=== PATIENT | female | born 1970 | race Caucasian/White ===

== ENCOUNTER → 2021-09-04 | Outpatient (CLI) | payer OTHER, SELFPAY ==
[2021-09-04 12:35] LABS: Absolute Lymphocyte Count 2.55 X10^3/uL (0.83-4.51); Absolute Neutrophil Count 7.7 X10^3/uL (2.0-7.7); Basophil# 0.05 X10^3/uL; Basophil% 0.5 % (0-1); Eosinophil# 0.13 X10^3/uL; Eosinophils% 1.2 % (0-5); Hematocrit 43.8 % (37-47); Hemoglobin 14.2 g/dL (12.0-15.0); Lymphocyte # 2.55 X10^3/ul (0.83-4.51); Mean Corp Hgb Conc 32.4 g/dL (32-36); Mean Corpuscular Hgb 29.9 pg (27.0-32.0); Mean Corpuscular Volume 92.2 fL (81-99); Monocyte# 0.63 X10^3/uL; Monocyte% 5.7 % (0-10); NRBC Flagged by Analyzer 0 % (0-5); Neutrophil # 7.72 X10^3/uL (2.7-7.7); Neutrophil % 69.4 % (47-70); Platelet Count 290 K/mm3 (150-450); RBC Distribution Width CV 12.2 % (11.6-14.6); RBC Distribution Width SD 41.7 fl (35.1-43.9); Red Blood Count 4.75 M/mm3 (4.2-5.4); White Blood Count 11.1 K/mm3 (4.4-11.0)
[2021-09-04 12:42] LABS: ALB/GLOB Ratio 0.9 RATIO (0.9-2.4); AST(SGOT) 16 U/L (15-37); Alanine Aminotransfer ALT/SGPT 26 U/L (13-56); Albumin, Serum 3.7 g/dL (3.2-5.0); Alkaline Phosphatase 71 U/L (45-117); Anion Gap 6 (5-15); BUN 10 mg/dL (7-18); BUN/Creat Ratio 9.1 RATIO (10-20); Chloride 104 mmol/L (98-107); Cholesterol 238 mg/dL (200); EST Glomerular Filtration Rate 56 mL/min (>60); Est Glom Filt Rate - Afr Amer 67 mL/min (>60); Glucose 104 mg/dL (74-106); High Density Lipoprotein 30 mg/dL; Potassium 4.2 mmol/L (3.5-5.1); Protein, Total 7.7 g/dL (6.4-8.2); Sodium Level 136 mmol/L (136-145); T4 Free Direct 0.85 ng/dL (0.76-1.46); Thyroid Stim Hormone (TSH) 4.23 uIU/mL (0.358-3.74); Triglycerides 169 mg/dL; Very Low Density Lipoprotein 34 mg/dL (5-40)
== END | disposition home or self-care (01) ==
LOC: BIMLAB 08:09
PROVIDERS: PCP Internal Medicine; Referring Provider Internal Medicine; Visit Provider Internal Medicine
DX: I10 Essential (primary) hypertension (principal); E78.5 Hyperlipidemia, unspecified
CPT/HCPCS: 36415; 80053; 80061; 84439; 84443; 85025

== ENCOUNTER → 2021-11-13 | Outpatient (CLI) | payer OTHER, SELFPAY | END | disposition home or self-care (01) | LOC: CVS 14:48 | PROVIDERS: PCP Internal Medicine; Referring Provider Internal Medicine; Visit Provider Internal Medicine | DX: Z00.00 Encounter for general adult medical examination without abnormal findings (principal) ==

== ENCOUNTER → 2021-12-22 | Outpatient (CLI) | payer OTHER, SELFPAY ==
[2021-12-22 12:38] LABS: ALB/GLOB Ratio 0.9 RATIO (0.9-2.4); AST(SGOT) 13 U/L (15-37); Alanine Aminotransfer ALT/SGPT 26 U/L (13-56); Albumin, Serum 3.5 g/dL (3.2-5.0); Alkaline Phosphatase 67 U/L (45-117); Anion Gap 8 (5-15); BUN 11 mg/dL (7-18); BUN/Creat Ratio 11.7 RATIO (10-20); Calcium,Total 8.7 mg/dL (8.5-10.1); Chloride 106 mmol/L (98-107); Creatinine, Serum 0.94 mg/dL (0.55-1.02); EST Glomerular Filtration Rate 66 mL/min (>60); Est Glom Filt Rate - Afr Amer 80 mL/min (>60); Globulin 3.7 g/dL (2.2-4.2); Glucose 111 mg/dL (74-106); Protein, Total 7.2 g/dL (6.4-8.2); Sodium Level 139 mmol/L (136-145)
== END | disposition home or self-care (01) ==
PROVIDERS: PCP Internal Medicine; Visit Provider Internal Medicine
DX: E78.5 Hyperlipidemia, unspecified (principal); I10 Essential (primary) hypertension
CPT/HCPCS: 36415; 80053

== ENCOUNTER 2022-06-07 15:05 | Outpatient (RCR) | payer OTHER, SELFPAY ==
[2022-06-07 16:36] LABS: ALB/GLOB Ratio 0.9 RATIO (0.9-2.4); AST(SGOT) 32 U/L (15-37); Alanine Aminotransfer ALT/SGPT 39 U/L (13-56); Albumin, Serum 3.4 g/dL (3.2-5.0); Alkaline Phosphatase 60 U/L (45-117); Anion Gap 5 (5-15); BUN 14 mg/dL (7-18); BUN/Creat Ratio 13.3 RATIO (10-20); Calcium,Total 8.9 mg/dL (8.5-10.1); Chloride 103 mmol/L (98-107); Creatinine, Serum 1.05 mg/dL (0.55-1.02); EST Glomerular Filtration Rate 58 mL/min (>60); Est Glom Filt Rate - Afr Amer 71 mL/min (>60); Globulin 3.9 g/dL (2.2-4.2); Glucose 119 mg/dL (74-106); Potassium 3.8 mmol/L (3.5-5.1); Protein, Total 7.3 g/dL (6.4-8.2); Sodium Level 138 mmol/L (136-145)
[2022-06-07 16:39] LABS: Absolute Lymphocyte Count 2.16 X10^3/uL (0.83-4.51); Absolute Neutrophil Count 6.6 X10^3/uL (2.0-7.7); Basophil# 0.05 X10^3/uL; Basophil% 0.5 % (0-1); Eosinophil# 0.15 X10^3/uL; Eosinophils% 1.5 % (0-5); Hematocrit 32.4 % (37-47); Hemoglobin 10.3 g/dL (12.0-15.0); Lymphocyte # 2.16 X10^3/ul (0.83-4.51); Lymphocyte % 22.2 % (19-41); Mean Corp Hgb Conc 31.8 g/dL (32-36); Mean Corpuscular Hgb 29.6 pg (27.0-32.0); Mean Corpuscular Volume 93.1 fL (81-99); Mean Platelet Vol. 10.3 fl (6.2-12.0); Monocyte# 0.71 X10^3/uL; Monocyte% 7.3 % (0-10); NRBC Flagged by Analyzer 0 % (0-5); Neutrophil # 6.64 X10^3/uL (2.7-7.7); Neutrophil % 68.1 % (47-70); Platelet Count 221 K/mm3 (150-450); RBC Distribution Width CV 12.3 % (11.6-14.6); RBC Distribution Width SD 41.8 fl (35.1-43.9); Red Blood Count 3.48 M/mm3 (4.2-5.4); White Blood Count 9.8 K/mm3 (4.4-11.0)
[2022-06-07 16:50] LABS: International Normalized Ratio 1.6
== END 2022-06-22 23:59 ==
LOC: BIMLAB 15:05
PROVIDERS: PCP Internal Medicine; Referring Provider Internal Medicine; Visit Provider Internal Medicine
DX: Z95.1 Presence of aortocoronary bypass graft (principal); Z95.2 Presence of prosthetic heart valve; E78.5 Hyperlipidemia, unspecified
CPT/HCPCS: 36415; 80053; 85025; 85610

== ENCOUNTER → 2022-06-21 | Outpatient (CLI) | payer OTHER, SELFPAY ==
[2022-06-21 17:10] LABS: International Normalized Ratio 1.5; Prothrombin Time (Protime)PT. 17.8 SECONDS (11.7-14.9)
== END | disposition home or self-care (01) ==
LOC: BIMLAB 11:36
PROVIDERS: PCP Internal Medicine; Visit Provider Internal Medicine
DX: Z95.1 Presence of aortocoronary bypass graft (principal)
CPT/HCPCS: 36415; 85610

== ENCOUNTER 2022-07-23 11:55 | Outpatient (RCR) | payer OTHER, SELFPAY ==
[2022-06-28 12:50] LABS: International Normalized Ratio 3.3; Prothrombin Time (Protime)PT. 32.9 SECONDS (11.7-14.9)
[2022-07-23 13:10] LABS: International Normalized Ratio 2.4; Prothrombin Time (Protime)PT. 25.7 SECONDS (11.7-14.9)
== END 2022-07-23 23:59 ==
LOC: BIMLAB 11:55
PROVIDERS: PCP Internal Medicine; Referring Provider Internal Medicine; Visit Provider Internal Medicine
DX: Z95.2 Presence of prosthetic heart valve
CPT/HCPCS: 36415; 85610

== ENCOUNTER 2022-08-16 09:58 | Outpatient (RCR) | payer OTHER, SELFPAY ==
[2022-08-16 12:26] LABS: International Normalized Ratio 1.2; Prothrombin Time (Protime)PT. 15.2 SECONDS (11.7-14.9)
== END 2022-08-22 23:59 ==
LOC: BIMLAB 09:58
PROVIDERS: PCP Internal Medicine; Referring Provider Internal Medicine; Visit Provider Internal Medicine
DX: Z95.2 Presence of prosthetic heart valve (principal)
CPT/HCPCS: 36415; 85610

== ENCOUNTER → 2022-09-10 | Outpatient (CLI) | payer OTHER, SELFPAY ==
[2022-09-10 16:33] LABS: Hematocrit 43.5 % (37-47); Mean Corp Hgb Conc 32.2 g/dL (32-36); Mean Corpuscular Hgb 29.7 pg (27.0-32.0); Mean Corpuscular Volume 92.4 fL (81-99); Mean Platelet Vol. 10.3 fl (6.2-12.0); Platelet Count 246 K/mm3 (150-450); RBC Distribution Width SD 43.9 fl (35.1-43.9); Red Blood Count 4.71 M/mm3 (4.2-5.4); White Blood Count 8.8 K/mm3 (4.4-11.0)
[2022-09-10 16:54] LABS: Anion Gap 7 (5-15); BUN 16 mg/dL (7-18); BUN/Creat Ratio 13.7 RATIO (10-20); Calcium,Total 9.7 mg/dL (8.5-10.1); Chloride 105 mmol/L (98-107); Creatinine, Serum 1.17 mg/dL (0.55-1.02); EST Glomerular Filtration Rate 52 mL/min (>60); Est Glom Filt Rate - Afr Amer 62 mL/min (>60); Glucose 119 mg/dL (74-106); Potassium 4.1 mmol/L (3.5-5.1); Sodium Level 140 mmol/L (136-145)
== END | disposition home or self-care (01) ==
LOC: BIMLAB 14:47
PROVIDERS: PCP Internal Medicine; Referring Provider Internal Medicine; Visit Provider Internal Medicine
DX: I10 Essential (primary) hypertension (principal)
CPT/HCPCS: 36415; 80048; 85027

== ENCOUNTER → 2022-10-20 | Outpatient (CLI) | payer OTHER, SELFPAY ==
[2022-10-20 12:59] LABS: Cholesterol 260 mg/dL (200); High Density Lipoprotein 33 mg/dL; Triglycerides 387 mg/dL; Very Low Density Lipoprotein 77 mg/dL (5-40)
== END | disposition home or self-care (01) ==
LOC: BIMLAB 10:15
PROVIDERS: PCP Internal Medicine; Referring Provider Internal Medicine; Visit Provider Internal Medicine
DX: I25.10 Atherosclerotic heart disease of native coronary artery without angina pectoris (principal); E78.5 Hyperlipidemia, unspecified; F17.200 Nicotine dependence, unspecified, uncomplicated; Z95.2 Presence of prosthetic heart valve
CPT/HCPCS: 36415; 80061

== ENCOUNTER → 2023-04-01 | Outpatient (CLI) | payer OTHER, SELFPAY ==
[2023-04-01 13:43] LABS: AST(SGOT) 21 U/L (15-37); Alanine Aminotransfer ALT/SGPT 28 U/L (13-56); Albumin, Serum 3.9 g/dL (3.2-5.0); Alkaline Phosphatase 68 U/L (45-117); Anion Gap 6 (5-15); BUN 11 mg/dL (7-18); BUN/Creat Ratio 10.4 RATIO (10-20); Calcium,Total 8.9 mg/dL (8.5-10.1); Chloride 106 mmol/L (98-107); Cholesterol 269 mg/dL (200); Creatinine, Serum 1.06 mg/dL (0.55-1.02); EST Glomerular Filtration Rate 58 mL/min (>60); Est Glom Filt Rate - Afr Amer 70 mL/min (>60); Globulin 3.9 g/dL (2.2-4.2); Glucose 118 mg/dL (74-106); High Density Lipoprotein 35 mg/dL; Potassium 4.5 mmol/L (3.5-5.1); Protein, Total 7.8 g/dL (6.4-8.2); Sodium Level 138 mmol/L (136-145); Triglycerides 256 mg/dL; Very Low Density Lipoprotein 51 mg/dL (5-40)
== END | disposition home or self-care (01) ==
LOC: BIMLAB 08:06
PROVIDERS: PCP Internal Medicine
DX: E78.5 Hyperlipidemia, unspecified (principal)
CPT/HCPCS: 36415; 80053; 80061

== ENCOUNTER → 2023-05-09 | Outpatient (CLI) | payer OTHER, SELFPAY ==
--- OUTSIDE RECORDS SUMMARY | 2023-05-09 08:46 | XMS RPT_ITS | CCD ---
Author Name Unknown Address [address] [place] [address] Organization [facility] Care Team Providers Care Recording Artist Name Role Phone Adi BLACKWELL, Kavin Calderon Primary Care Provider [phone] MICHAEL SAMUEL Primary Care Physician SAMUEL, FLIGHT COORDINATOR-C MICHAEL Primary Care Unavailable MEET COLLAZO MD Attending Unavailable ELOISE LOZADA Attending Unavail able SAMUEL, FLIGHT COORDINATOR-C MICHAEL Primary Care Unavailable PRIMITIVO BENTLEY ELOISE L Attending Unavail able SAMUEL, FLIGHT COORDINATOR-C MICHAEL Primary Care Unavailable SAMUEL, FLIGHT COORDINATOR-C MICHAEL Primary Care Unavailable HARITHA GOYAL MD, DR RICHARDS Admitting Unav MEET Melendrez MD Attending Unavailable SAMUEL, FLIGHT COORDINATOR-C MICHAEL Consulting Unavailable PRIMITIVO BENTLEY ELOISE L Consulting Unavail KHAI Cho MD Consulting Unavailcole JACKSON MD, DR MORGAN Consulting Unavailab arielle ESQUIVEL MD, DMITRIY Consulting Unavailable TAMI BLACKWELL, DR PARRISH Consulting Unavailable MEET COLLAZO MD Consulting Unavailable PRIMITIVO BENTLEY ELOISE L Attending Unavail able SAMUEL, FLIGHT COORDINATOR-C MICHAEL Primary Care Unavailable DR SUSIE ARRIETA MD Attending Unav ailable SAMUEL, FLIGHT COORDINATOR-C MICHAEL Primary Care Unavailable SAMUEL, FLIGHT COORDINATOR-C MICHAEL Attending Unavailable HARITHA GOYAL MD, DR RICHARDS Attending Unav ailable SAMUEL, FLIGHT COORDINATOR-C MICHAEL Primary Care Unavailable LANGFORDJUSTIN BENTLEY ELOISE L Attending Unavail able SAMUEL, FLIGHT COORDINATOR-C MICHAEL Primary Care Unavailable Medications Current Medications Medication Drug Class(es) Dates Sig (Normalized) Sig (Original) acetaminophen 650 mg oral tablet (1 source) Start: 06-05-2022 acetaminophen Dose : 650 mg = 2 tab(s), Oral, q4h, PRN Pain, scale 1-6, 0 Refill(s) Start Date: 06/05/22 Status: Ordered amiodarone hydrochloride 200 mg oral tablet (4 sources) Antiarrhythmic Start: 06-05-2022 End: 07-11-2022 amiodarone 200 mg oral tablet Dose : 200 mg = 1 tab(s), Oral, qDay, # 30 tab(s), 0 Refill(s), 07/11/22 14:16:00 EDT, Pharmacy: [facility], 175, cm, 05/28/22 6:59:00 EST, Height Start Date: 06/05/22 Stop Date: 07/11/22 Status: Ordered Completed/Discontinued Medications Medication Drug Class(es) Dates Sig (Normalized) Sig (Original) COMPOUNDED PRESCRIPTION (1 source) Start: 03-23-2018 COMPOUNDED PRESCRIPTION Indications: Varicose veins of leg with pain, right KNEE HIGH COMPRESSION STOCKINGS 20-30 MM HG. DX: edema. Varicose vein with pain. I83.811. 1 Each 2 03/23/2018 Active Problems Active Problems Problem Classification Problem Date Documented Da te Episodic/Chronic Blindness and vision defects (2 sources) Bilateral hyperopia of eyes; Translations: [Hypermetropia, bilateral] Episodic Cataract (2 sources) Nuclear sclerosis; Translations: [Age-related nuclear cataract, bilateral] Chronic Coronary atherosclerosis and other heart disease (9 sources) Coronary atherosclerosis; Translations: [Atherosclerotic heart disease of wr[place] coronary artery without angina pectoris] Onset: 05-28-2022 Chronic Coronary atherosclerosis and other heart disease (2 sources) Presence of aortocoronary bypass graft; Translations: [Presence of aortocoronary bypass graft] Onset: 06-15-2022 Episodic Diabetes mellitus without complication (6 sources) Prediabetes; Translations: [Prediabetes] Onset: 05-31-2022 Episodic Disorders of lipid metabolism (8 sources) Hyperlipidemia; Translations: [Hyperlipidemia, unspecified] Onset: 04-25-1999 10-20-2016 Chronic Essential hypertension (2 sources) Essential hypertension; Translations: [Essential (primary) hypertension] Onset: 05-28-2022 Chronic Heart valve disorders (15 sources) Aortic stenosis, non-rheumatic ; Translations: [Nonrheumatic aortic (valve) stenosis] Onset: 05-28-2022 Chronic Mood disorders (1 source) Depressive disorder; Translations: [Depression] Onset: 04-25-1995 10-18-2016 Chronic Occlusion or stenosis of precerebral arteries (6 sources) Carotid artery occlusion; Translations: [Occlusion and stenosis of left carotid artery] Onset: 05-31-2022 Chronic Osteoarthritis (7 sources) Osteoarthritis; Translations: [Unspecified osteoarthritis, unspecified site] Onset: 05-28-2022 Chronic Other aftercare (2 sources) Encounter for surgical aftercare following surgery on the circulatory system; Translations: [Encounter for surgical aftercare following surgery on the circulatory system] Onset: 06-15-2022 Episodic Other nervous system disorders (1 source) Postoperative pain ; Translations: [Other acute postprocedural pain] Onset: 06-05-2022 Episodic Other nutritional; endocrine; and metabolic disorders (2 sources) Obese class II; Translations: [Obesity, unspecified] Onset: 03-23-2018 03-23-2018 Chronic Other nutritional; endocrine; and metabolic disorders (2 sources) Obesity; Translations: [Obesity, unspecified] Onset: 05-28-2022 Chronic Other nutritional; endocrine; and metabolic disorders (5 sources) Body mass index 30+ - obesity 05-28-2022 Chronic Residual codes; unclassified (2 sources) Tobacco user; Translations: [Tobacco use] Onset: 05-28-2022 Episodic Residual codes; unclassified (1 source) FH: Cardiovascular disease; Translations: [Family history of ischemic heart disease and other diseases of the circulatory system] Onset: 05-28-2022 Episodic Residual codes; unclassified (5 sources) FH: premature coronary heart disease 05-28-2022 Episodic Substance-related disorders (1 source) Tobacco user; Translations: [Nicotine dependence, unspecified, uncomplicated] Onset: 10-18-2016 10-18-2016 Chronic Unclassified (4 sources) Anticoagulant effect 06-16-2022 Past or Other Problems Problem Classification Problem Date Documented Da te Episodic/Chronic Heart valve disorders (1 source) Heart murmur; Translations: [Cardiac murmur, unspecified] Onset: 10-18-2016 10-18-2016 Episodic Varicose veins of lower extremity (1 source) Varicose veins of lower extremity; Translations: [Varicose veins of unspecified lower extremity with pain] Onset: 10-18-2016 10-18-2016 Episodic Results Test Name Value Interpretation Reference Range Facil ity Vital Signs Date Time Vital Sign Value Performing Clinician Darcy ro 06-05-2022 11:14-0500 Body temperature 98.24 [degF] DR SUSIE GOYAL MD [address] [place] [address] 06-05-2022 11:14-0500 Diastolic Blood Pressure Non-Invasive [address] SUSIE GOYAL MD [address] [place] [address] 06-05-2022 11:14-0500 Heart rate 78 /min DR SUSIE GOYAL MD [address] [place] [address] 06-05-2022 11:14-0500 Mean blood pressure 80 mm[Hg] DR SUSIE GOYAL MD [address] [place] [address] 06-05-2022 11:14-0500 Reason For Taking VItal Signs DR SUSIE GOYAL MD [address] [place] [address] 06-05-2022 11:14-0500 Systolic Blood Pressure Non-Invasive [address] SUSIE GOYAL MD [address] [place] [address] 06-05-2022 10:10-0500 Heart rate 78 /min DR SUSIE GOYAL MD [address] [place] [address] 06-05-2022 07:36-0500 Heart rate 93 /min DR SUSIE GOYAL MD [address] [place] [address] 06-05-2022 07:33-0500 Body temperature 97.88 [degF] DR SUSIE GOYAL MD [address] [place] [address] 06-05-2022 07:33-0500 Diastolic Blood Pressure Non-Invasive [address] SUSIE GOYAL MD [address] [place] [address] 02-11-2023 07:33-0500 Mean blood pressure 89 mm[Hg] DR SUSIE GOYAL MD [address] [place] [address] 06-05-2022 07:33-0500 Reason For Taking VItal Signs DR SUSIE GOYAL MD [address] [place] [address] 06-05-2022 07:33-0500 Respiratory rate 16 /min DR SUSIE GOYAL MD [address] [place] [address] 06-05-2022 07:33-0500 Systolic Blood Pressure Non-Invasive [address] SUSIE GOYAL MD [address] [place] [address] 06-05-2022 04:39-0500 Body temperature 98.42 [degF] DR SUSIE GOYAL MD [address] [place] [address] 06-05-2022 04:39-0500 Diastolic Blood Pressure Non-Invasive [address] SUSIE GOYAL MD [address] [place] [address] 06-05-2022 04:39-0500 Mean blood pressure 84 mm[Hg] DR SUSIE GOYAL MD [address] [place] [address] 06-05-2022 04:39-0500 Respiratory rate 16 /min DR SUSIE GOYAL MD [address] [place] [address] 06-05-2022 04:39-0500 Systolic Blood Pressure Non-Invasive [address] SUSIE GOYAL MD [address] [place] [address] 06-04-2022 23:26-0500 Reason For Taking VItal Signs DR SUSIE GOYAL MD [address] [place] [address] 06-04-2022 23:26-0500 Respiratory rate 16 /min DR SUSIE GOYAL MD [address] [place] [address] 06-04-2022 16:00-0500 Heart rate 90 /min DR SUSIE GOYAL MD [address] [place] [address] 06-04-2022 10:09-0500 Heart rate 92 /min DR SUSIE GOYAL MD [address] [place] [address] 06-03-2022 14:23-0500 Heart rate 83 /min DR SUSIE GOYAL MD [address] [place] [address] 06-03-2022 14:23-0500 Heart rate 88 /min DR SUSIE GOYAL MD [address] [place] [address] 06-03-2022 11:40-0500 Diastolic blood pressure 61 mm[Hg] DR SUSIE GOYAL MD [address] [place] [address] 06-03-2022 11:40-0500 Diastolic blood pressure 56 mm[Hg] DR SUSIE GOYAL MD [address] [place] [address] 06-03-2022 11:40-0500 Mean blood pressure 81 mm[Hg] DR SUSIE GOYAL MD [address] [place] [address] 06-03-2022 11:40-0500 Mean blood pressure 75 mm[Hg] DR SUSIE GOYAL MD [address] [place] [address] 06-03-2022 11:40-0500 Systolic blood pressure 124 mm[Hg] DR SUSIE GOYAL MD [address] [place] [address] 06-03-2022 11:40-0500 Systolic blood pressure 110 mm[Hg] DR SUSIE GOYAL MD [address] [place] [address] 06-03-2022 10:55-0500 Diastolic blood pressure 60 mm[Hg] DR SUSIE GOYAL MD [address] [place] [address] 06-03-2022 10:55-0500 Mean blood pressure 80 mm[Hg] DR SUSIE GOYAL MD [address] [place] [address] 06-03-2022 10:55-0500 Systolic blood pressure 121 mm[Hg] DR SUSIE GOYAL MD [address] [place] [address] 06-03-2022 07:15-0500 Body temperature 99.14 [degF] DR SUSIE GOYAL MD [address] [place] [address] 06-03-2022 04:14-0500 SaO2% (BldA) [Mass fraction] 69.8 % DR SUSIE GOYAL MD [facility] 06-03-2022 03:37-0500 SaO2% (BldA) [Mass fraction] 97.8 % DR SUSIE GOYAL MD [facility] 06-03-2022 03:30-0500 Body temperature 99.32 [degF] DR SUSIE GOYAL MD [address] [place] [address] 06-03-2022 02:10-0500 Body temperature 99.32 [degF] DR SUSIE GOYAL MD [address] [place] [address] 06-02-2022 23:23-0500 SaO2% (BldA) [Mass fraction] 97.2 % DR SUSIE GOYAL MD [facility] 06-02-2022 21:33-0500 SaO2% (BldA) [Mass fraction] 98.2 % DR SUSIE GOYAL MD [facility] 06-02-2022 16:25-0500 Body temperature 98.1 [degF] DR SUSIE GOYAL MD [address] [place] [address] 06-02-2022 16:25-0500 Body temperature 97.81 [degF] DR SUSIE GOYAL MD [address] [place] [address] 06-02-2022 16:20-0500 Body temperature 98.19 [degF] DR SUSIE GOYAL MD [address] [place] [address] 06-02-2022 16:20-0500 Body temperature 97.9 [degF] DR SUSIE GOYAL MD [address] [place] [address] 06-02-2022 16:15-0500 Body temperature 98.28 [degF] DR SUSIE GOYAL MD [address] [place] [address] 06-02-2022 16:15-0500 Body temperature 97.99 [degF] DR SUSIE GOYAL MD [address] [place] [address] 06-02-2022 15:48-0500 SaO2% (BldA) [Mass fraction] 99.4 % DR SUSIE GOYAL MD [facility] 06-02-2022 15:19-0500 SaO2% (BldA) [Mass fraction] 99.5 % DR SUSIE GOYAL MD [facility] 06-02-2022 14:54-0500 SaO2% (BldA) [Mass fraction] 99.4 % DR SUSIE GOYAL MD [facility] 05-31-2022 15:05-[address] SUSIE GOYAL MD [address] 05-31-2022 15:05-[address] SUSIE GOYAL MD [address] 05-30-2022 05:22-0500 Blood Pressure Cuff Size DR SUSIE GOYAL MD [address] 05-30-2022 05:22-[address] SUSIE GOYAL MD [address] [place] [address] 05-30-2022 05:22-[address] SUSIE GOYAL MD [address] 05-29-2022 23:39-0500 Blood Pressure Cuff Size DR SUSIE GOYAL MD [facility] 05-29-2022 23:39-[address] SUSIE GOYAL MD [facility] 05-29-2022 23:39-[address] SUSIE GOYAL MD [facility] 05-29-2022 19:42-0500 Blood Pressure Cuff Size DR SUSIE GOYAL MD [address] 05-28-2022 10:34-0500 Heart rate 80 /min DR SUSIE GOYAL MD [address] 05-28-2022 06:48-0500 Body height [address] SUSIE GOYAL MD [address] 05-28-2022 06:48-0500 Body weight 111.[address] SUSIE GOYAL MD [facility] Encounters Encounter Date Encounter Type Care Provider Facility Start: 07-27-2022 End: 07-28-[address] SUSIE GOYAL MD Facility:B Start: 07-27-2022 End: 07-27-[address] SUSIE GOYAL MD [facility] Start: 07-01-2022 End: 07-02-2022 ambulatory ELOISE L LANGFORD 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 Facility:A Start: 07-01-2022 End: 07-01-2022 Patient encounter procedure ELOISE Alessio LANGFORD 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 [facility] Start: 06-30-2022 End: 07-01-2022 ambulatory ELOISE Alessio LANGFORD 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 Facility:B Start: 06-16-2022 End: 06-17-2022 ambulatory ELOISE L LANGFORD 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 Facility:A Start: 06-16-2022 End: 06-16-2022 Patient encounter procedure ELOISE LANGFORD 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 [facility] Start: 06-15-2022 End: 06-20-2022 ambulatory ELOISE LANGFORD 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 Facility:R Start: 06-15-2022 End: 06-19-2022 Outreach Lab ELOISE LANGFORD 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 [facility] Start: 06-07-2022 End: 06-23-2022 ambulatory FLIGHT COORDINATOR-C MICHAEL SAMUEL Facility:R Start: 05-28-2022 End: 06-05-2022 Evaluation and management of inpatient FLIGHT COORDINATOR-C MICHAEL SAMUEL Facility:A Start: 05-28-2022 End: 06-05-2022 Evaluation and management of inpatient DR SUSIE GOYAL MD [facility] Start: 05-26-2022 End: 05-27-[address] SUSIE GOYAL MD Facility:B Start: 04-21-2022 End: 04-22-2022 ambulatory FLIGHT COORDINATOR-C MICHAEL SAMUEL Facility:B Start: 04-21-2022 End: 04-21-2022 Patient encounter procedure MICHAEL SAMUEL [facility] Start: 11-05-2021 End: 11-05-2021 Patient encounter procedure Daya Valentine OD Work Phone: Ophthalmology Procedures Date Procedure Procedure Detail Performing Clinician Start: 06-02-2022 Aortic valve replace ment and replacement of ascending aorta DR SUSIE GOYAL MD Plan of Treatment Date Care Activity Detail Author Start: 12-24-2021 Influenza vaccination INFLUENZA (#1) [facility] Start: 10-19-2021 LIPID SCREEN LIPID SCREEN [facility] Start: 03-23-2021 DIABETES SCREEN DIABETES SCREEN [facility] Start: 2020 Influenza vaccination LUNG CANCER SC REENING [facility] Start: 2020 SHINGRIX VACCINE (1 of 2) SHINGRIX V ACCINE (1 of 2) [facility] Start: 10-18-2017 Mammography MAMMOGRAM [facility] Start: 2015 COLOGUARD (FIT-DNA) COLOGUARD (FIT-D NA) [facility] Start: 2015 Colonoscopy COLONOSCOPY [facility] Start: 2015 COLORECTAL CANCER SCREENING COLORECTAL CANCER SCREENING [facility] Start: [address] COLONOGRAPHY [facility] Start: 2015 FECAL OCCULT BLOOD FECAL OCCULT BLOO D [facility] Start: 2015 SIGMOIDOSCOPY SIGMOIDOSCOPY [facility] Start: 2000 HPV TESTING HPV TESTING [facility] Start: 1991 PAP TESTING PAP TESTING [facility] Start: 1989 Urine microalbumin profile DTAP,TDAP ,TD (1 - Tdap) [facility] Start: 1988 HEPATITIS C SCREENING HEPATITIS C [facility] Start: 1988 HIV SCREENING HIV SCREENING [facility] Start: 1976 PNEUMOCOCCAL (1 - PCV) PNEUMOCOCCAL (1 - PCV) [facility] Start: 1970 COVID-19 VACCINE (#1) COVID-19 VACCI NE (#1) [facility] Payers Date Payer Category Payer Unknown [id number] 2022 Unknown [id number] 2021 Unknown MMO MMO [employer] [id number] 2021-Present [phone] [address] [place] [address] PPO [id number] 1970 Unknown [id number] 1970 Unknown [id number] 1970 Unknown [id number] 1970 Unknown [id number] 1970 Unknown [id number] 1970 Unknown [id number] 1970 Unknown [id number] 1970 Unknown [id number] Social History Date Type Detail Facility Start: 05-20-1986 [facility] Start: 05-20-1986 History of tobacco use Cigarette Smo ker [facility] Start: 10-18-2016 Cigarettes smoked current (pack per day) - Reported 2 [facility] Start: 10-18-2016 Tobacco use and exposure Smokeless tobacco non-user [facility] Start: 11-05-2021 Alcohol intake 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 Sex Assigned At Female [facility] Start: 05-22-2022 Tobacco smoking status Heavy t obacco smoker (finding) [facility] Tobacco smoking status Smoker (finding) [facility] granger [facility] Functional Status Date Assessment Result Facility 06-05-2022 Functional Status Lunch Percent 90 [facility] 06-05-2022 Functional Status Non-Slip footw ear, Room check performed [facility] 06-05-2022 Functional Status [facility] 06-05-2022 [facility] 06-05-[facility] 06-04-2022 [facility] Status [facility] 06-04-2022 Functional Status Ambulation in [facility] 06-04-2022 Functional Status [facility] 06-04-2022 Functional Status [facility] 06-04-2022 Functional Status [facility] 06-04-2022 Functional Status [facility] 06-03-2022 Functional Status [facility] 06-03-2022 Functional 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 [facility] 06-03-2022 Functional Status [facility] 06-03-2022 Functional Status [facility] 06-03-2022 Functional Status [facility] 06-02-2022 Functional Status Patient Identified Iden tification band [facility] 06-01-2022 Functional Status [facility] 06-01-2022 Functional Status [facility] 05-31-2022 Functional Status [facility] 05-30-2022 Functional Status [facility] 05-29-2022 Functional Status [facility] 05-28-2022 [facility] Status Date Assessment Result Facility 06-05-2022 Mental Status Oriented x 4 [facility] 06-05-2022 Mental Status [facility] 06-04-2022 Mental Status [facility] 06-03-2022 Mental Status [facility] Clinical Notes 11-14-2020 to 07-01-2022 Note Date & Type Note Facility 07-01-2022 Note ORIGINAL EXAMINATION: TWO XRAY VIEWS OF THE CHEST 07/01/2022 9:44 am COMPARISON: 06/16/2022 HISTORY: ORDERING SYSTEM PROVIDED HISTORY: Reason for Exam: pleural effusion FINDINGS: The cardiomediastinal silhouette is unchanged. Prosthetic cardiac valve noted. Median sternotomy wires are present. Midline surgical shay have been removed. There is no focal consolidation, large pleural effusion, vascular congestion, or pneumothorax. Trace left effusion, decreased from prior. Surgical clips are seen in the right upper quadrant. Multilevel degenerative changes are present in the spine. IMPRESSION: Trace left effusion, decreased from prior. Interpreted by: Sheryl Nair MD Preliminary Report By: Sheryl Nair MD Electronically signed By Sheryl Nair MD Dictated Date: 07/01/2022 4:05:30 PM Prelim Date: 07/01/2022 4:06:40 PM Sign Date: 07/01/2022 4:06:40 PM Ordering Provider: [facility] 07-01-2022 Note ORIGINAL EXAMINATION: TWO XRAY VIEWS OF THE CHEST 07/01/2022 9:44 am COMPARISON: 06/16/2022 HISTORY: ORDERING SYSTEM PROVIDED HISTORY: Reason for Exam: pleural effusion FINDINGS: The cardiomediastinal silhouette is unchanged. Prosthetic cardiac valve noted. Median sternotomy wires are present. Midline surgical shay have been removed. There is no focal consolidation, large pleural effusion, vascular congestion, or pneumothorax. Trace left effusion, decreased from prior. Surgical clips are seen in the right upper quadrant. Multilevel degenerative changes are present in the spine. IMPRESSION: Trace left effusion, decreased from prior. Interpreted by: Sheryl Nair MD Preliminary Report By: Sheryl Nair MD Electronically signed By Sheryl Nair MD Dictated Date: 07/01/2022 4:05:30 PM Prelim Date: 07/01/2022 4:06:40 PM Sign Date: 07/01/2022 4:06:40 PM Ordering Provider: [facility] 06-05-2022 Hospital Discharg e instructions Patient Education 06/05/2022 11:09:50 Carbohydrate Counting for Diabetes Mellitus, Adult Carbohydrate Counting for Diabetes Mellitus, Adult Carbohydrate counting is a method of keeping track of how many carbohydrates you eat. Eating carbohydrates naturally increases the amount of sugar (glucose) in the blood. Counting how many carbohydrates you eat helps keep your blood glucose within normal limits, which helps you manage your diabetes (diabetes mellitus). It is important to know how many carbohydrates you can safely have in each meal. This is different for every person. A diet and crop nutrition scientist (registered dietitian) can help you make a meal plan and calculate how many carbohydrates you should have at each meal and snack. Carbohydrates are found in the following foods: Grains, such as breads and cereals. Dried beans and soy products. Starchy vegetables, such as potatoes, peas, and corn. Fruit and fruit juices. Milk and yogurt. Sweets and snack foods, such as cake, cookies, candy, chips, and soft drinks. How do I count carbohydrates? There are two ways to count carbohydrates in food. You can use either of the methods or a combination of both. Reading Nutrition Facts on packaged food The Nutrition Facts list is included on the labels of almost all packaged foods and beverages in the [place] It includes: The serving size. Information about nutrients in each serving, including the grams (g) of carbohydrate per serving. To use the Nutrition Facts : Decide how many servings you will have. Multiply the number of servings by the number of carbohydrates per serving. The resulting number is the total amount of carbohydrates that you will be having. Learning standard serving sizes of other foods When you eat carbohydrate foods that are not packaged or do not include Nutrition Facts on the label, you need to measure the servings in order to count the amount of carbohydrates: Measure the foods that you will eat with a food scale or measuring cup, if needed. Decide how many standard-size servings you will eat. Multiply the number of servings by 15. Most carbohydrate-rich foods have about 15 g of carbohydrates per serving. ?For example, if you eat 8 oz (170 g) of strawberries, you will have eaten 2 servings and 30 g of carbohydrates (2 servings x 15 g = 30 g). For foods that have more than one food mixed, such as soups and casseroles, you must count the carbohydrates in each food that is included. The following list contains standard serving sizes of common carbohydrate-rich foods. Each of these servings has about 15 g of carbohydrates: hamburger bun or [place] muffin. oz (15 mL) syrup. oz (14 g) jelly. 1 slice of bread. 1 six-inch tortilla. 3 oz (85 g) cooked rice or pasta. 4 oz (113 g) cooked dried beans. 4 oz (113 g) starchy vegetable, such as peas, corn, or potatoes. 4 oz (113 g) hot cereal. 4 oz (113 g) mashed potatoes or of a large baked potato. 4 oz (113 g) canned or frozen fruit. 4 oz (120 mL) fruit juice. 4 6 crackers. 6 chicken nuggets. 6 oz (170 g) unsweetened dry cereal. 6 oz (170 g) plain fat-free yogurt or yogurt sweetened with artificial sweeteners. 8 oz (240 mL) milk. 8 oz (170 g) fresh fruit or one small piece of fruit. 24 oz (680 g) popped popcorn. Example of carbohydrate counting Sample meal 3 oz (85 g) chicken breast. 6 oz (170 g) brown rice. 4 oz (113 g) corn. 8 oz (240 mL) milk. 8 oz (170 g) strawberries with sugar-free whipped topping. Carbohydrate calculation 1.Identify the foods that contain carbohydrates: Rice. [place]. Milk. Strawberries. 2.Calculate how many servings you have of each food: 2 servings rice. 1 serving corn. 1 serving milk. 1 serving strawberries. 3.Multiply each number of servings by 15 servings rice x 15 g = 30 g. 1 serving corn x 15 g = 15 g. 1 serving milk x 15 g = 15 g. 1 serving strawberries x 15 g = 15 g. 4.Add together all of the amounts to find the total grams of carbohydrates eaten: 30 g + 15 g + 15 g + 15 g = 75 g of carbohydrates total. Summary Carbohydrate counting is a method of keeping track of how many carbohydrates you eat. Eating carbohydrates naturally increases the amount of sugar (glucose) in the blood. Counting how many carbohydrates you eat helps keep your blood glucose within normal limits, which helps you manage your diabetes. A diet and crop nutrition scientist (registered dietitian) can help you make a meal plan and calculate how many carbohydrates you should have at each meal and snack. This information is not intended to replace advice given to you by your health care provider. Make sure you discuss any questions you have with your health care provider. Document Released: 04/11/2006 Document Revised: 11/03/2017 Document Reviewed: 09/22/2016 [employer] Patient Education 2020 [employer] 06/05/2022 10:42:00 What You Need to Know About Warfarin What You Need to Know About Warfarin Warfarin is a blood thinner (anticoagulant). Anticoagulants help to prevent the formation of blood clots. They also help to stop the growth of blood clots. Who should use warfarin? Warfarin is prescribed for people who are at risk for developing harmful blood clots, such as people who have: Surgically implanted mechanical heart valves. Irregular heart rhythms (atrial fibrillation). Certain clotting disorders. A history of harmful blood clotting in the past. This includes people who have had: ?A stroke. ?Blood clot in the lungs (pulmonary embolism, or PE). ?Blood clot in the legs (deep vein thrombosis, or DVT). An existing blood clot. How is warfarin taken? Warfarin is a medicine that you take by mouth (orally). Warfarin tablets come in different strengths. Each tablet strength is a different color, with the amount of warfarin printed on the tablet. If you get a new prescription filled and the color of your tablet is different than usual, tell your pharmacist or health care provider immediately. What blood tests do I need while taking warfarin? The goal of warfarin therapy is to lessen the clotting tendency of blood, but not to prevent clotting completely. Your health care provider will monitor the anticoagulation effect of warfarin closely and will adjust your dose as needed. Warfarin is a medicine that needs to be closely monitored, so it is very important to keep all lab visits and follow-up visits with your health care provider. While taking warfarin, you will need to have blood tests (prothrombin tests, or PT tests) regularly to measure your blood clotting time. This type of test can be done with a finger stick or a blood draw. What does the INR test result mean? The PT test results will be reported as the International Normalized Ratio (INR). The INR tells your health care provider whether your dosage of warfarin needs to be changed. The longer it takes your blood to clot, the higher the INR. Your health care provider will tell you your target INR range. If your INR is not in your target range, your health care provider may adjust your dosage. If your INR is above your target range, there is a risk of bleeding. Your dosage of warfarin may need to be decreased. If your INR is below your target range, there is a risk of clotting. Your dosage of warfarin may need to be increased. How often is the INR test needed? When you first start warfarin, you will usually have your INR checked every few days. You may need to have INR tests done more than once a week until you are taking the correct dosage of warfarin. After you have reached your target INR, your INR will be tested less often. However, you will need to have your INR checked at least once every 4 6 weeks for the entire time you are taking warfarin. What are the side effects of warfarin? Too much warfarin can cause bleeding (hemorrhage) in any part of the body, such as: Bleeding from the gums. Unexplained bruises. Bruises that get larger. Blood in the urine. Bloody or dark stools. Bleeding in the brain (hemorrhagic stroke). A nosebleed that is not easily stopped. Coughing up blood. Vomiting blood. Warfarin use may also cause: Skin rash or irritations Nausea that does not go away. Severe pain in the back or joints. Painful toes that turn blue or purple (purple toe syndrome). Painful ulcers that do not go away (skin necrosis). What are the signs and symptoms of a blood clot? Too little warfarin can increase the risk of blood clots in your legs, lungs, or arms. Signs and symptoms of a DVT in your leg or arm may include: Pain or swelling in your leg or arm. Skin that is red or warm to the touch on your arm or leg. Signs and symptoms of a pulmonary embolism may include: Shortness of breath or difficulty breathing. Chest pain. Unexplained fever. What are the signs and symptoms of a stroke? If you are taking too much or too little warfarin, you can have a stroke. Signs and symptoms of a stroke may include: Weakness or numbness of your face, arm, or leg, especially on one side of your body. Confusion or trouble thinking clearly. Difficulty seeing with one or both eyes. Difficulty walking or moving your arms or legs. Dizziness. Loss of balance or coordination. Trouble speaking, trouble understanding speech, or both (aphasia). Sudden, severe headache with no known cause. Partial or total loss of consciousness. What precautions do I need to take while using warfarin? Take warfarin exactly as told by your health care provider. Doing this helps you avoid bleeding or blood clots that could result in serious injury, pain, or disability. Take your medicine at the same time every day. If you forget to take your dose of warfarin, take it as soon as you remember that day. If you do not remember on that day, do not take an extra dose the next day. Contact your health care provider if you miss or take an extra dose. Do not change your dosage on your own to make up for missed or extra doses. Wear or carry identification that says that you are taking warfarin. Make sure that all health care providers, including your dentist, know you are taking warfarin. If you need surgery, talk with your health care provider about whether you should stop taking warfarin before your surgery. Avoid situations that cause bleeding. You may bleed more easily while taking warfarin. To limit bleeding, take the following actions: ?Use a softer toothbrush. ?Floss with waxed floss, not unwaxed floss. ?Shave with an electric razor, not with a blade. ?Limit your use of sharp objects. ?Avoid potentially harmful activities, such as contact sports. What do I need to know about warfarin and or ? Warfarin is not recommended during the first trimester of due to an increased risk of defects. In certain situations, a woman may take warfarin after her first trimester of . If you are taking warfarin and you become or plan to become , contact your health care provider right away. If you plan to breastfeed while taking warfarin, talk with your health care provider first. What do I need to know about warfarin and alcohol or drug use? Avoid drinking alcohol, or limit alcohol intake to no more than 1 drink a day for non women and 2 drinks a day for men. One drink equals 12 oz of beer, 5 oz of wine, or 1 oz of hard liquor. ?If you change the amount of alcohol that you drink, tell your health care provider. Your warfarin dosage may need to be changed. Avoid tobacco products, such as cigarettes, chewing tobacco, and e-cigarettes. If you need help quitting, ask your health care provider. ?If you change the amount of nicotine or tobacco that you use, tell your health care provider. Your warfarin dosage may need to be changed. Avoid street drugs while taking warfarin. The effects of street drugs on warfarin are not known. What do I need to know about warfarin and other medicines or supplements? Many prescription and wqri-xgd-flcwpnl medicines can interfere with warfarin. Talk with your health care provider or your pharmacist before starting or stopping any new medicines. This includes nvku-vfx-vbonciu vitamins, dietary supplements, herbal medicines, and pain medicines. Your warfarin dosage may need to be adjusted. Some common vznj-[id number] medicines that may increase the risk of bleeding while taking warfarin include: ?Acetaminophen. ?Aspirin. ?NSAIDs, such as ibuprofen or naproxen. ?Vitamin E. What do I need to know about warfarin and my diet? It is important to maintain a normal, balanced diet while taking warfarin. Avoid major changes in your diet. If you are going to change your diet, talk with your health care provider before making changes. Your health care provider may recommend that you work with a diet and crop nutrition scientist (dietitian). Vitamin K decreases the effect of warfarin, and it is found in many foods. Eat a consistent amount of foods that contain vitamin K. For example, you may decide to eat 2 vitamin K-containing foods each day. Most foods that are high in vitamin K are green and leafy. Common foods that contain high amounts of vitamin K include: Kale, raw or cooked. Spinach, raw or cooked. Collards, raw or cooked. [place] chard, raw or cooked. Mustard greens, raw or cooked. Turnip greens, raw or cooked. Parsley, raw. Broccoli, cooked. Noodles, eggs, and spinach, enriched. [place] sprouts, raw or cooked. Beet greens, raw or cooked. Endive, raw. Cabbage, cooked. Asparagus, cooked. Foods that contain moderate amounts of vitamin K include: Broccoli, raw. Cabbage, raw. Bok barney, cooked. Green leaf lettuce, raw Prunes, stewed. Pickles. Kiwi. Edamame, cooked. [place] lettuce, raw. Avocado. Tuna, canned in oil. Okra, cooked. Black-eyed peas, cooked. Green beans, cooked or raw. Blueberries, raw. Blackberries, raw. Peas, cooked or raw. Contact a health care provider if: You miss a dose. You take an extra dose. You plan to have any kind of surgery or procedure. You are unable to take your medicine due to nausea, vomiting, or diarrhea. You have any major changes in your diet or you plan to make any major changes in your diet. You start or stop any ojmz-jec-curbjef medicine, prescription medicine, or dietary supplement. You become , plan to become , or think you may be . You have menstrual periods that are heavier than usual. You have unusual bruising. Get help right away if: You develop symptoms of an allergic reaction, such as: ?Swelling of the lips, face, tongue, mouth, or throat. ?Rash. ?Itching. ?Itchy, red, swollen areas of skin (hives). ?Trouble breathing. ?Chest tightness. You have: ?Signs or symptoms of a stroke. ?Signs or symptoms of a blood clot. ?A fall or have an accident, especially if you hit your head. ?Blood in your urine. Your urine may look reddish, pinkish, or tea-colored. ?Blood in your stool. Your stool may be black or bright red. ?Bleeding that does not stop after applying pressure to the area for 30 minutes. ?Severe pain in your joints or back. ?Purple or blue toes. ?Skin ulcers that do not go away. You vomit blood or cough up blood. The blood may be bright red, or it may look like coffee grounds. These symptoms may represent a serious problem that is an emergency. Do not wait to see if the symptoms will go away. Get medical help right away. Call your local emergency services (911 in the [place] Do not drive yourself to the hospital. Summary Warfarin needs to be closely monitored with blood tests. It is very important to keep all lab visits and follow-up visits with your health care provider. Make sure that you know your target INR range and your warfarin dosage. Wear or carry identification that says that you are taking warfarin. Take warfarin at the same time every day. Call your health care provider if you miss a dose or if you take an extra dose. Do not change the dosage of warfarin on your own. Know the signs and symptoms of blood clots, bleeding, and a stroke. Know when to get emergency medical help. Tell all health care providers who care for you that you are taking warfarin. Talk with your health care provider or your pharmacist before starting or stopping any new medicines. Monitor how much vitamin K you eat every day. Try to eat the same amount every day. This information is not intended to replace advice given to you by your health care provider. Make sure you discuss any questions you have with your health care provider. Document Released: 04/11/2006 Document Revised: 11/22/2017 Document Reviewed: 07/07/2016 [employer] Patient Education 2020 [employer] 06/05/2022 10:41:52 Steps to Quit Smoking Steps to Quit Smoking Smoking tobacco is the leading cause of preventable . It can affect almost every organ in the body. Smoking puts you and those around you at risk for developing many serious chronic diseases. Quitting smoking can be difficult, but it is one of the best things that you can do for your health. It is never too late to quit. How do I get ready to quit? When you decide to quit smoking, create a plan to help you succeed. Before you quit: Pick a date to quit. Set a date within the next 2 weeks to give you time to prepare. Write down the reasons why you are quitting. Keep this list in places where you will see it often. Tell your family, friends, and co-workers that you are quitting. Support from your loved ones can make quitting easier. Talk with your health care provider about your options for quitting smoking. Find out what treatment options are covered by your health insurance. Identify people, places, things, and activities that make you want to smoke (triggers). Avoid them. What first steps can I take to quit smoking? Throw away all cigarettes at home, at work, and in your car. Throw away smoking accessories, such as ashtrays and lighters. Clean your car. Make sure to empty the ashtray. Clean your home, including curtains and carpets. What strategies can I use to quit smoking? Talk with your health care provider about combining strategies, such as taking medicines while you are also receiving in-person counseling. Using these two strategies together makes you more likely to succeed in quitting than if you used either strategy on its own. If you are or , talk with your health care provider about finding counseling or other support strategies to quit smoking. Do not take medicine to help you quit smoking unless your health care provider tells you to do so. To quit smoking: Quit right away Quit smoking completely, instead of gradually reducing how much you smoke over a period of time. Research shows that stopping smoking right away is more successful than gradually quitting. Attend in-person counseling to help you build problem-solving skills. You are more likely to succeed in quitting if you attend counseling sessions regularly. Even short sessions of 10 minutes can be effective. Take medicine You may take medicines to help you quit smoking. Some medicines require a prescription and some you can purchase [id number]. Medicines may have nicotine in them to replace the nicotine in cigarettes. Medicines may: Help to stop cravings. Help to relieve withdrawal symptoms. Your health care provider may recommend: Nicotine patches, gum, or lozenges. Nicotine inhalers or sprays. Non-nicotine medicine that is taken by mouth. Find resources Find resources and support systems that can help you to quit smoking and remain smoke-free after you quit. These resources are most helpful when you use them often. They include: Online chats with a counselor. Telephone quitlines. Printed self-help materials. Support groups or group counseling. Text messaging programs. Mobile phone apps or applications. Use apps that can help you stick to your quit plan by providing reminders, tips, and encouragement. There are many free apps for mobile devices as well as websites. Examples include Quit Guide from the CDC and smokefree.gov What things can I do to make it easier to quit? Reach out to your family and friends for support and encouragement. Call telephone quitlines (1-628-UJUG-NOW), reach out to support groups, or work with a counselor for support. Ask people who smoke to avoid smoking around you. Avoid places that trigger you to smoke, such as bars, parties, or smoke-break areas at work. Spend time with people who do not smoke. Lessen the stress in your life. Stress can be a smoking trigger for some people. To lessen stress, try: ?Exercising regularly. ?Doing deep-breathing exercises. ?Doing yoga. ?Meditating. ?Performing a body scan. This involves closing your eyes, scanning your body from head to toe, and noticing which parts of your body are particularly tense. Try to relax the muscles in those areas. How will I feel when I quit smoking? Day 1 to 3 weeks Within the first 24 hours of quitting smoking, you may start to feel withdrawal symptoms. These symptoms are usually most noticeable 2 3 days after quitting, but they usually do not last for more than 2 3 weeks. You may experience these symptoms: Mood swings. Restlessness, anxiety, or irritability. Trouble concentrating. Dizziness. Strong cravings for sugary foods and nicotine. Mild weight gain. Constipation. Nausea. Coughing or a sore throat. Changes in how the medicines that you take for unrelated issues work in your body. Depression. Trouble sleeping (insomnia). Week 3 and afterward After the first 2 3 weeks of quitting, you may start to notice more positive results, such as: Improved sense of smell and taste. Decreased coughing and sore throat. Slower heart rate. Lower blood pressure. Clearer skin. The ability to breathe more easily. Fewer sick days. Quitting smoking can be very challenging. Do not get discouraged if you are not successful the first time. Some people need to make many attempts to quit before they achieve long-term success. Do your best to stick to your quit plan, and talk with your health care provider if you have any questions or concerns. Summary Smoking tobacco is the leading cause of preventable . Quitting smoking is one of the best things that you can do for your health. When you decide to quit smoking, create a plan to help you succeed. Quit smoking right away, not slowly over a period of time. When you start quitting, seek help from your health care provider, family, or friends. This information is not intended to replace advice given to you by your health care provider. Make sure you discuss any questions you have with your health care provider. Document Released: 04/05/2002 Document Revised: 06/29/2019 Document Reviewed: 06/30/2019 [employer] Patient Education 2020 [employer] 06/05/2022 10:41:50 Form - Daily Weight Record Daily Weight Record It is important to weigh yourself daily. To do this: Make sure you use a reliable scale. Use the same scale each day. Keep this daily weight chart near your scale. Weigh yourself each morning at the same time. Before weighing yourself: ?Take off your shoes. ?Make sure you are wearing the same amount of clothing each day. Write down your weight in the spaces on the form. Compare today's weight to yesterday's weight. Bring this form with you to your follow-up visits with your health care provider. Call your health care provider if you have concerns about your weight, including rapid weight gain or loss. Date: Weight: Date: Weight: Date: Weight: Date: Weight: Date: Weight: Date: Weight: Date: Weight: Date: Weight: Date: Weight: Date: Weight: Date: Weight: Date: Weight: Date: Weight: Date: Weight: Date: Weight: Date: Weight: Date: Weight: Date: Weight: Date: Weight: Date: Weight: Date: Weight: Date: Weight: Date: Weight: Date: Weight: Date: Weight: Date: Weight: Date: Weight: Date: Weight: Date: Weight: Date: Weight: Date: Weight: Date: Weight: Date: Weight: Date: Weight: Date: Weight: Date: Weight: Date: Weight: Date: Weight: Date: Weight: Date: Weight: Date: Weight: Date: Weight: Date: Weight: Date: Weight: Date: Weight: Date: Weight: Date: Weight: Date: Weight: Date: Weight: Date: Weight: This information is not intended to replace advice given to you by your health care provider. Make sure you discuss any questions you have with your health care provider. Document Released: 06/23/2007 Document Revised: 04/10/2018 Document Reviewed: 04/10/2018 [employer] Patient Education 2020 [email or web address]. 06/05/2022 10:41:48 8- Open Heart Surgery (Bypass or Valve) 05/2019 (CUSTOM) OPEN HEART SURGERY (Bypass or Valve Surgery) General Guidelines for Care After Surgery Please read the instructions below and refer to it during the next few weeks. Recovering from surgery is different for everyone. Some people feel great after 3 or 4 weeks and others take longer depending on their condition before the surgery. These are general guidelines on how to care for yourself but always follow your doctor s instructions. If you have questions or problems after you go home, please call your doctor. MEDICINES You have the list of medicine you need to take at home. Be sure you understand this list and keep a copy with you at all times. Never add or stop medicine unless you check with your doctor first. Call the doctor if you have any of the following problems: If you start throwing up or have stomach pain or diarrhea If you feel dizzy or lightheaded when you stand up If you are confused or have trouble walking If you feel like your heart is racing and beating fast or if you feel like it is beating too slow If you get a rash If you notice bleeding or lots of bruising If you are taking a blood thinner such as warfarin after having valve surgery, please read the handout that has been given to you by the nurse. PAIN AFTER SURGERY You might feel some pain after your heart surgery. Please take your pain medicine if you need it following the directions on the bottle. If your pain becomes worse or if you are having trouble breathing, call your surgeon. As you heal and the pain begins to go away, take your pain medicine less often Pain medicine will sometimes cause you to become constipated. It is OK to take an over the counter stool softener. Eating lots of fruit and vegetables can also help with constipation. CARE OF YOUR INCISIONS Pay attention to your incisions and shower every day after you go home. Some swelling, bruising or redness is normal and will get better with time. Do not take a bath until all of your incisions are healed. Wash the incisions gently with antibacterial soap and water in the shower Use a clean washcloth every day Wash your chest incision first, then wash any arm incision, and last wash leg incisions Wash the rest of your body after cleaning all of your incisions Never use any cream or lotion on your incisions until they are healed all the way. Keep your incisions clean and dry Do not cover the incision with a dressing unless you are having drainage If you have shay, they will be taken out at the office visit You might notice some swelling or a lump at the top of the chest incision, but this is normal. Call your surgeon right away if you notice clicking in your chest. Your legs might swell after your surgery so follow these tips: Keep legs elevated when sitting. As a rule, it is best to elevate them above the level of your heart. For instance, if you are lying flat on a sofa, place your legs up on the arm of the sofa. Do not cross your legs. Wear your elastic stockings during the day for 4 weeks. Put them on before you get out of bed in the morning and then take them off at night. These will help keep your legs from swelling. ACTIVITY It is important to keep moving after heart surgery, but you will need to take rest periods throughout the day. Every day, increase your activity as you are able. Walk as much as possible, and gradually increase your distance every day. It will be normal to be sore for a couple of weeks after surgery. Get medical attention if your condition seems to be getting worse instead of better No heavy housework or heavy work outdoors You may use the stairs as tolerated Avoid lifting anything greater than 10 pounds Avoid any pushing or pulling with your arms. Avoid overexertion and take rest periods when you get tired Do not drive until your doctor tells you it is OK, typically 4 weeks. It is fine to go upstairs but take it slow and do not pull yourself up with the handrail. Avoid opening windows and opening tight jar lids. Do not bear down with bowel movements and do not hold your breath. Check with the surgeon before returning to work. Waiting 1-3 weeks is recommended for sexual intercourse. When you can walk briskly or climb 2 flights of stairs without pain or shortness of breath, you may be ready for sex. WEIGHT Weigh yourself every morning and write it down on paper. Use the same scale and weigh at the same time each day. Tell your doctor if you gain 2 pounds or more in one day. EATING HEALTHY Your doctor wants you to follow a heart healthy diet which is low in salt and low in fat. Your nurse has given you a book all about the diet you will need to follow. If you are diabetic or overweight, you will be given a calorie restriction too. If constipation is a problem, add more bran or fiber to your diet and you may take a mild dknd-xvo-owclzoc laxative like Milk of Magnesia . CARDIAC REHABILITATION Getting involved in cardiac rehab after your heart surgery is the best thing that you can do to feel better and stronger at a faster rate. The program is medically supervised to help patients recover and improve mental and physical function. It also helps reduce stress and can decrease your risk of having more heart problems. Your doctor will let you know when you can begin the program. SMOKING Give up smoking after heart surgery or it may cancel out the value of having your surgery. It may also delay the healing process. If you need help to quit, please call your surgeon or your heart doctor. [place] also has a free stop smoking program called Give it Up and if you want to attend, please call [phone]). Call the Surgeon If your incisions are red, oozing pus, or bleeding or if the edges are Call if there is a clicking in your sternum. Call if you are more short of breath. Call if you have dizziness Call if you have a fever of 101 or higher. Call if you have more ankle swelling, pain in your leg, or pain in your calf. Call the Heart Doctor (Kitchen Worker) If your heart beats are irregular or are fast. If you have any questions about your medicine. If you gain 2 or more pounds in one day. If you feel dizzy or lightheaded when you first stand up. If you have any questions about getting help at home after you are discharged. If you have painful, frequent or bloody urination. GET IMMEDIATE MEDICAL HELP IF YOU HAVE: Chest pain, jaw pain, sweating, dizziness or severe shortness of breath, you could be having a heart attack. Please dial [phone] immediately. 06/04/2022 14:33:47 Prediabetes Eating Plan Prediabetes Eating Plan Prediabetes is a condition that causes blood sugar (glucose) levels to be higher than normal. This increases the risk for developing diabetes. In order to prevent diabetes from developing, your health care provider may recommend a diet and other lifestyle changes to help you: Control your blood glucose levels. Improve your cholesterol levels. Manage your blood pressure. Your health care provider may recommend working with a diet and crop nutrition scientist (dietitian) to make a meal plan that is best for you. What are tips for following this plan? Lifestyle Set weight loss goals with the help of your health care team. It is recommended that most people with prediabetes lose 7% of their current body weight. Exercise for at least 30 minutes at least 5 days a week. Attend a support group or seek ongoing support from a mental health counselor. Take dyci-abc-hrurazd and prescription medicines only as told by your health care provider. Reading food labels Read food labels to check the amount of fat, salt (sodium), and sugar in prepackaged foods. Avoid foods that have: ?Saturated fats. ?Trans fats. ?Added sugars. Avoid foods that have more than 300 milligrams (mg) of sodium per serving. Limit your daily sodium intake to less than 2,300 mg each day. Shopping Avoid buying pre-made and processed foods. Cooking Cook with olive oil. Do not use butter, lard, or ghee. Bake, broil, grill, or boil foods. Avoid frying. Meal planning Work with your dietitian to develop an eating plan that is right for you. This may include: ?Tracking how many calories you take in. Use a food diary, notebook, or mobile application to track what you eat at each meal. ?Using the glycemic index (GI) to plan your meals. The index tells you how quickly a food will raise your blood glucose. Choose low-GI foods. These foods take a longer time to raise blood glucose. Consider following a Mediterranean diet. This diet includes: ?Several servings each day of fresh fruits and vegetables. ?Eating fish at least twice a week. ?Several servings each day of whole grains, beans, nuts, and seeds. ?Using olive oil instead of other fats. ?Moderate alcohol consumption. ?Eating small amounts of red meat and whole-fat dairy. If you have high blood pressure, you may need to limit your sodium intake or follow a diet such as the DASH eating plan. DASH is an eating plan that aims to lower high blood pressure. What foods are recommended? The items listed below may not be a complete list. Talk with your dietitian about what dietary choices are best for you. Grains Whole grains, such as whole-wheat or whole-grain breads, crackers, cereals, and pasta. Unsweetened oatmeal. Bulgur. Barley. Quinoa. Brown rice. [place] or whole-wheat flour tortillas or taco shells. Vegetables Lettuce. Spinach. Peas. Beets. Cauliflower. Cabbage. Broccoli. Carrots. Tomatoes. Squash. Eggplant. Herbs. Peppers. Onions. Cucumbers. [place] sprouts. Fruits Berries. Bananas. Apples. Oranges. Grapes. Papaya. Dayday. Pomegranate. Kiwi. Grapefruit. Cherries. Meats and other protein foods Seafood. Poultry without skin. Lean cuts of pork and beef. Tofu. Eggs. Nuts. Beans. Dairy Low-fat or fat-free dairy products, such as yogurt, cottage cheese, and cheese. Beverages Water. Tea. Coffee. Sugar-free or diet soda. [place] water. Lowfat or no-fat milk. Milk alternatives, such as soy or almond milk. Fats and oils [place] oil. Canola oil. [place] oil. Grapeseed oil. Avocado. Walnuts. Sweets and desserts Sugar-free or low-fat pudding. Sugar-free or low-fat ice cream and other frozen treats. Seasoning and other foods Herbs. Sodium-free spices. Mustard. Relish. Low-fat, low-sugar ketchup. Low-fat, low-sugar barbecue sauce. Low-fat or fat-free mayonnaise. What foods are not recommended? The items listed below may not be a complete list. Talk with your dietitian about what dietary choices are best for you. Grains Refined white flour and flour products, such as bread, pasta, snack foods, and cereals. Vegetables Canned vegetables. Frozen vegetables with butter or cream sauce. Fruits Fruits canned with syrup. Meats and other protein foods Fatty cuts of meat. Poultry with skin. Breaded or fried meat. Processed meats. Dairy Full-fat yogurt, cheese, or milk. Beverages Sweetened drinks, such as sweet iced tea and soda. Fats and oils Butter. Lard. Ghee. Sweets and desserts Baked goods, such as cake, cupcakes, pastries, cookies, and cheesecake. Seasoning and other foods Spice mixes with added salt. Ketchup. Barbecue sauce. Mayonnaise. Summary To prevent diabetes from developing, you may need to make diet and other lifestyle changes to help control blood sugar, improve cholesterol levels, and manage your blood pressure. Set weight loss goals with the help of your health care team. It is recommended that most people with prediabetes lose 7 percent of their current body weight. Consider following a Mediterranean diet that includes plenty of fresh fruits and vegetables, whole grains, beans, nuts, seeds, fish, lean meat, low-fat dairy, and healthy oils. This information is not intended to replace advice given to you by your health care provider. Make sure you discuss any questions you have with your health care provider. Document Released: 08/26/2015 Document Revised: 08/03/2019 Document Reviewed: 06/15/2017 [employer] Patient Education 2020 [employer] 06/04/2022 14:33:46 Insulin Resistance Insulin Resistance Insulin is a hormone that helps to control blood sugar (glucose) levels in the body. It is made in the pancreas. Insulin allows glucose to enter cells in the body. Insulin sensitivity refers to how the body responds to insulin. Insulin resistance occurs when cells in the body do not respond properly to insulin made by the pancreas and are not able to absorb glucose from the bloodstream. Insulin resistance results in high blood glucose levels (hyperglycemia) and can lead to problems, including: Prediabetes. Type 2 diabetes (type 2 diabetes mellitus). Heart disease. High blood pressure (hypertension). Stroke. Polycystic ovary syndrome (PCOS). Nonalcoholic fatty liver disease. What are the causes? The exact cause of insulin resistance is not known. What increases the risk? The following factors may make you more likely to develop insulin resistance: Being overweight or obese, especially if a lot of your weight is in your waist area. Having an inactive (sedentary) lifestyle. Using steroids. Being older than age 45. Having sleep apnea. Using tobacco products. What are the signs or symptoms? This condition usually does not cause symptoms. How is this diagnosed? There is no test to diagnose insulin resistance. However, your health care provider may diagnose insulin resistance based on: Your blood glucose levels. Your cholesterol levels. A measurement of the distance around your waist (circumference). A waist circumference of more than 35 inches (88.9 cm) for women and more than 40 inches (101.6 cm) for men may be a sign of insulin resistance. Your risk factors. A physical exam. Your medical history. How is this treated? Insulin resistance is treated with nutrition and lifestyle changes. These changes may include: Eating a healthy balance of nutritious foods. Getting more physical activity. Maintaining a healthy weight. Stopping the use of any tobacco products. Your health care provider will work with you to change your nutrition and lifestyle as needed. In some cases, treatment may also include medicine to improve your insulin sensitivity. Follow these instructions at home: Activity Be physically active. Do moderate-intensity physical activity for 30 minutes or more on 5 or more days of the week, or as much as told by your health care provider. This could be brisk walking, biking, or water aerobics. Ask your health care provider what activities are safe for you. A mix of physical activities may be best, such as walking, swimming, cycling, and strength training. Eating and drinking Follow a healthy meal plan. This includes eating lean proteins, complex carbohydrates, fresh fruits and vegetables, low-fat dairy products, and healthy fats. Follow instructions from your health care provider about eating or drinking restrictions. Make an appointment to see a diet and crop nutrition scientist (registered dietitian) to help you create a healthy eating plan. General instructions Check your blood glucose levels as told by your health care provider. Take oeom-hee-zfernnf and prescription medicines only as told by your health care provider. Lose weight as told by your health care provider. ?Losing 5 7% of your body weight can reverse insulin resistance. ?Your health care provider can determine how much weight loss is best for you and can help you lose weight safely. Do not use any tobacco products, such as cigarettes, chewing tobacco, and e-cigarettes. If you need help quitting, ask your health care provider. Keep all follow-up visits as told by your health care provider. This is important. Contact a health care provider if: You have trouble losing weight or maintaining your goal weight. You gain weight. You have trouble following your prescribed meal plan. You have trouble exercising more. Summary Insulin resistance occurs when cells in the body do not respond properly to insulin made by the pancreas and are not able to absorb blood sugar (glucose) from the bloodstream. Your health care provider will work with you to change your nutrition and lifestyle as needed. Treatment may also include medicine to improve your insulin sensitivity. Keep all follow-up visits as told by your health care provider. This is important. This information is not intended to replace advice given to you by your health care provider. Make sure you discuss any questions you have with your health care provider. Document Released: 05/31/2006 Document Revised: 03/24/2018 Document Reviewed: 05/14/2016 [employer] Patient Education 2020 [email or web address]. 06/04/2022 14:33:45 Prediabetes Prediabetes Prediabetes is the condition of having a blood sugar (blood glucose) level that is higher than it should be, but not high enough for you to be diagnosed with type 2 diabetes. Having prediabetes puts you at risk for developing type 2 diabetes (type 2 diabetes mellitus). Prediabetes may be called impaired glucose tolerance or impaired fasting glucose. Prediabetes usually does not cause symptoms. Your health care provider can diagnose this condition with blood tests. You may be tested for prediabetes if you are overweight and if you have at least one other risk factor for prediabetes. What is blood glucose, and how is it measured? Blood glucose refers to the amount of glucose in your bloodstream. Glucose comes from eating foods that contain sugars and starches (carbohydrates), which the body breaks down into glucose. Your blood glucose level may be measured in mg/dL (milligrams per deciliter) or mmol/L (millimoles per liter). Your blood glucose may be checked with one or more of the following blood tests: A fasting blood glucose (FBG) test. You will not be allowed to eat (you will fast) for 8 hours or longer before a blood sample is taken. ?A normal range for FBG is 70 100 mg/dl (3.9 5.6 mmol/L). An A1c (hemoglobin A1c) blood test. This test provides information about blood glucose control over the previous 2?3 months. An oral glucose tolerance test (OGTT). This test measures your blood glucose at two times: ?After fasting. This is your baseline level. ?Two hours after you drink a beverage that contains glucose. You may be diagnosed with prediabetes: If your FBG is 100?125 mg/dL (5.6 6.9 mmol/L). If your A1c level is 5.7?6.4%. If your OGTT result is 140?199 mg/dL (7.8 11 mmol/L). These blood tests may be repeated to confirm your diagnosis. How can this condition affect me? The pancreas produces a hormone (insulin) that helps to move glucose from the bloodstream into cells. When cells in the body do not respond properly to insulin that the body makes (insulin resistance), excess glucose builds up in the blood instead of going into cells. As a result, high blood glucose (hyperglycemia) can develop, which can cause many complications. Hyperglycemia is a symptom of prediabetes. Having high blood glucose for a long time is dangerous. Too much glucose in your blood can damage your nerves and blood vessels. Long-term damage can lead to complications from diabetes, which may include: Heart disease. Stroke. Blindness. Kidney disease. Depression. Poor circulation in the feet and legs, which could lead to surgical removal (amputation) in severe cases. What can increase my risk? Risk factors for prediabetes include: Having a family member with type 2 diabetes. Being overweight or obese. Being older than age 45. Being of , -English, /, or / descent. Having an inactive (sedentary) lifestyle. Having a history of heart disease. History of gestational diabetes or polycystic ovary syndrome (PCOS), in women. Having low levels of good cholesterol (HDL-C) or high levels of blood fats (triglycerides). Having high blood pressure. What actions can I take to prevent diabetes? Be physically active. ?Do moderate-intensity physical activity for 30 or more minutes on 5 or more days of the week, or as much as told by your health care provider. This could be brisk walking, biking, or water aerobics. ?Ask your health care provider what activities are safe for you. A mix of physical activities may be best, such as walking, swimming, cycling, and strength training. Lose weight as told by your health care provider. ?Losing 5 7% of your body weight can reverse insulin resistance. ?Your health care provider can determine how much weight loss is best for you and can help you lose weight safely. Follow a healthy meal plan. This includes eating lean proteins, complex carbohydrates, fresh fruits and vegetables, low-fat dairy products, and healthy fats. ?Follow instructions from your health care provider about eating or drinking restrictions. ?Make an appointment to see a diet and crop nutrition scientist (registered dietitian) to help you create a healthy eating plan that is right for you. Do not smoke or use any tobacco products, such as cigarettes, chewing tobacco, and e-cigarettes. If you need help quitting, ask your health care provider. Take hcgu-hdq-fkjuzdo and prescription medicines as told by your health care provider. You may be prescribed medicines that help lower the risk of type 2 diabetes. Keep all follow-up visits as told by your health care provider. This is important. Summary Prediabetes is the condition of having a blood sugar (blood glucose) level that is higher than it should be, but not high enough for you to be diagnosed with type 2 diabetes. Having prediabetes puts you at risk for developing type 2 diabetes (type 2 diabetes mellitus). To help prevent type 2 diabetes, make lifestyle changes such as being physically active and eating a healthy diet. Lose weight as told by your health care provider. This information is not intended to replace advice given to you by your health care provider. Make sure you discuss any questions you have with your health care provider. Document Released: 08/02/2016 Document Revised: 08/03/2019 Document Reviewed: 06/01/2016 [employer] Patient Education 2020 [email or web address]. 06/04/2022 14:33:36 Carbohydrate Counting for Diabetes Mellitus, Adult Carbohydrate Counting for Diabetes Mellitus, Adult Carbohydrate counting is a method of keeping track of how many carbohydrates you eat. Eating carbohydrates naturally increases the amount of sugar (glucose) in the blood. Counting how many carbohydrates you eat helps keep your blood glucose within normal limits, which helps you manage your diabetes (diabetes mellitus). It is important to know how many carbohydrates you can safely have in each meal. This is different for every person. A diet and crop nutrition scientist (registered dietitian) can help you make a meal plan and calculate how many carbohydrates you should have at each meal and snack. Carbohydrates are found in the following foods: Grains, such as breads and cereals. Dried beans and soy products. Starchy vegetables, such as potatoes, peas, and corn. Fruit and fruit juices. Milk and yogurt. Sweets and snack foods, such as cake, cookies, candy, chips, and soft drinks. How do I count carbohydrates? There are two ways to count carbohydrates in food. You can use either of the methods or a combination of both. Reading Nutrition Facts on packaged food The Nutrition Facts list is included on the labels of almost all packaged foods and beverages in the [place] It includes: The serving size. Information about nutrients in each serving, including the grams (g) of carbohydrate per serving. To use the Nutrition Facts : Decide how many servings you will have. Multiply the number of servings by the number of carbohydrates per serving. The resulting number is the total amount of carbohydrates that you will be having. Learning standard serving sizes of other foods When you eat carbohydrate foods that are not packaged or do not include Nutrition Facts on the label, you need to measure the servings in order to count the amount of carbohydrates: Measure the foods that you will eat with a food scale or measuring cup, if needed. Decide how many standard-size servings you will eat. Multiply the number of servings by 15. Most carbohydrate-rich foods have about 15 g of carbohydrates per serving. ?For example, if you eat 8 oz (170 g) of strawberries, you will have eaten 2 servings and 30 g of carbohydrates (2 servings x 15 g = 30 g). For foods that have more than one food mixed, such as soups and casseroles, you must count the carbohydrates in each food that is included. The following list contains standard serving sizes of common carbohydrate-rich foods. Each of these servings has about 15 g of carbohydrates: hamburger bun or [place] muffin. oz (15 mL) syrup. oz (14 g) jelly. 1 slice of bread. 1 six-inch tortilla. 3 oz (85 g) cooked rice or pasta. 4 oz (113 g) cooked dried beans. 4 oz (113 g) starchy vegetable, such as peas, corn, or potatoes. 4 oz (113 g) hot cereal. 4 oz (113 g) mashed potatoes or of a large baked potato. 4 oz (113 g) canned or frozen fruit. 4 oz (120 mL) fruit juice. 4 6 crackers. 6 chicken nuggets. 6 oz (170 g) unsweetened dry cereal. 6 oz (170 g) plain fat-free yogurt or yogurt sweetened with artificial sweeteners. 8 oz (240 mL) milk. 8 oz (170 g) fresh fruit or one small piece of fruit. 24 oz (680 g) popped popcorn. Example of carbohydrate counting Sample meal 3 oz (85 g) chicken breast. 6 oz (170 g) brown rice. 4 oz (113 g) corn. 8 oz (240 mL) milk. 8 oz (170 g) strawberries with sugar-free whipped topping. Carbohydrate calculation 1.Identify the foods that contain carbohydrates: Rice. [place]. Milk. Strawberries. 2.Calculate how many servings you have of each food: 2 servings rice. 1 serving corn. 1 serving milk. 1 serving strawberries. 3.Multiply each number of servings by 15 servings rice x 15 g = 30 g. 1 serving corn x 15 g = 15 g. 1 serving milk x 15 g = 15 g. 1 serving strawberries x 15 g = 15 g. 4.Add together all of the amounts to find the total grams of carbohydrates eaten: 30 g + 15 g + 15 g + 15 g = 75 g of carbohydrates total. Summary Carbohydrate counting is a method of keeping track of how many carbohydrates you eat. Eating carbohydrates naturally increases the amount of sugar (glucose) in the blood. Counting how many carbohydrates you eat helps keep your blood glucose within normal limits, which helps you manage your diabetes. A diet and crop nutrition scientist (registered dietitian) can help you make a meal plan and calculate how many carbohydrates you should have at each meal and snack. This information is not intended to replace advice given to you by your health care provider. Make sure you discuss any questions you have with your health care provider. Document Released: 04/11/2006 Document Revised: 11/03/2017 Document Reviewed: 09/22/2016 [employer] Patient Education 2020 [employer] Follow Up Care 05/24/2022 08:30:27 With:ELOISE LANGFORD APRN-SHIP DESIGN TEACHER Address: [address] [place] [address] [place] [address] [place] [address]- When:06/16/2022 14:00:00 Comments:Report to [facility] radiology department 1 hour prior to office visit for a chest x-ray With:RACHEL CAMPBELL Address: [address] [place] [address]- [phone] Business (1) When:06/07/2022 14:30:00 Comments:This is your appointment for coumadin management. With:MICHAEL SAMUEL Address: [address] [place] [address]- Business (1) When: Unknown Comments:Please call the office to schedule a follow up appointment With:[facility] Address:Unknown When: Unknown Comments:A referral has been made to [facility] on your behalf for RN services to follow at discharge. A nurse will contact you at your home to schedule your first appt. Please contact , with any questions or concerns you may have. With:Cardiac Rehab- [facility] Address: [address] [place] [address]- When: Unknown Comments:The Cardiac Rehab department will call you to schedule you for phase 2. We left you a brochure with information about cardiac rehab. If you have any questions please call [phone]. With:SUSIE ARRIETA MD Address: [address] [facility] [address] [facility] [place] [address]- When:07/09/2022 16:15:00 [facility] 06-05-2022 Note Date of Service 06/05/2022 Discharge Diagnosis 1. CAD (coronary artery disease) EF 55-60%, s/p CABG x2 with Vein grafts 06/02/22 (I25.10 - ICD-10-CM) 2. Aortic stenosis s/p AVR 06/02/22 (I35.0 - ICD-10-CM) 3. Pre-diabetes Hgb A1c 6.1% (R73.03 - ICD-10-CM) 4. HTN (hypertension) (I10 - ICD-10-CM) 5. Hyperlipemia (E78.5 - ICD-10-CM) 6. Arthritis (M19.90 - ICD-10-CM) 7. Tobacco use (Z72.0 - ICD-10-CM) 8. Family history of premature CAD (Z82.49 - ICD-10-CM) 9. Obesity (BMI 30-39.9) (E66.9 - ICD-10-CM) 10. Carotid stenosis, left (I65.22 - ICD-10-CM) Nonrheumatic aortic (valve) stenosis (I35.0 - ICD-10-CM) Atherosclerotic heart disease of [place] coronary artery without angina pectoris (I25.10 - ICD-10-CM) Essential (primary) hypertension (I10 - ICD-10-CM) Hyperlipidemia, unspecified (E78.5 - ICD-10-CM) Tobacco use (Z72.0 - ICD-10-CM) Unspecified osteoarthritis, unspecified site (M19.90 - ICD-10-CM) Obesity, unspecified (E66.9 - ICD-10-CM) Body mass index [BMI] 36.0-36.9, adult (Z68.36 - ICD-10-CM) Acute post-operative pain (G89.18 - ICD-10-CM) Ordered: oxyCODONE 5 mg oral tablet ( IMMEDIATE release ); Dose : 5 mg = 1 tab(s), Oral, q6hr, PRN Pain, scale 4-6, X 3 day(s), # 12 tab(s), 0 Refill(s), 06/08/22 10:21:00 EST, Pharmacy: [facility] #30, Acute post-operative pain, 175, cm, 05/28/22 6:59:00 EST, Height, 111.8 Additional Orders: Ordered: Coumadin,Start: 06/05/22 16:00:00 EST, Dose = 5 mg, = 1 tab(s), Oral, qDay, 06/05/22 8:48:00 EST Ordered: Discharge,06/05/22 10:40:00 EST, Discharged to: Home Ordered: Discharge Activity,May Shower Lifting Restricted less than 10 pounds, No driving, Restrictions for 6 weeks, 06/05/22 10:40:00 EST Discontinued: Discharge Diet,Type of Diet: Regular, Diet Restrictions: Low cholesterol, 06/05/22 10:40:00 EST Ordered: Discharge Diet,Type of Diet: Regular, Diet Restrictions: Low cholesterol, Diabetic, 06/05/22 11:05:00 EST Ordered: Discharge Outpatient Labwork,protime/INR, AVR, Results Notify to: IZZY SAMUEL MICHAEL Results Notify to: Margarita Brandon, Goal INR 2.0-2.5, PCP to manage, 06/05/22 10:40:00 EST Ordered: Discharge Outpatient Labwork,CMP, electrolyte imbalance, Results Notify to: ELOISE LANGFORD APRN-ELLEN, [facility] to draw om 06/15/2022, 06/05/22 10:40:00 EST Ordered: Discharge Wound Care,Wash incisions with soap and water, shay will be removed at office visit 06/16, 06/05/22 10:40:00 EST Ordered: Lasix,Start: 06/05/22 9:00:00 EST, Dose = 20 mg, = 1 tab(s), Oral, Daily, 06/05/22 8:48:00 EST Ordered: Lasix 20 mg oral tablet,Dose : 20 mg = 1 tab(s), Oral, Daily, Take for 3 days, # 3 tab(s), 0 Refill(s), Pharmacy: [facility] #30, 175, cm, 05/28/22 6:59:00 EST, Height Ordered: Surfak Stool Softener,Dose : 240 mg = 1 cap(s), Oral, BID, PRN as needed for constipation, 0 Refill(s) Ordered: acetaminophen,Dose : 650 mg = 2 tab(s), Oral, q4h, PRN Pain, scale 1-6, 0 Refill(s) Ordered: amiodarone 200 mg oral tablet,See Instructions, Take 2 tablets twice daily through 06/12/2022, beginning 06/13/2022 take 1 tablet daily for 30 days and then stop, # 60 tab(s), 0 Refill(s), Pharmacy: [facility] #30, 175, cm, 05/28/22 6:59:00 EST, Height Ordered: metoprolol tartrate 25 mg oral tablet,Dose : 25 mg = 1 tab(s), Oral, BIDM, # 60 tab(s), 3 Refill(s), Pharmacy: [facility] #30, 175, cm, 05/28/22 6:59:00 EST, Height Ordered: potassium chloride,Start: 06/05/22 8:49:00 EST, Dose = 20 mEq, = 1 tab(s), Oral, qDayM, with a meal, 06/05/22 8:49:00 EST Ordered: potassium chloride 20 mEq oral tablet, extended release,Dose : 20 mEq = 1 tab(s), Oral, qDayM, Take for 3 days, # 3 tab(s), 0 Refill(s), Pharmacy: [facility] #30, 175, cm, 05/28/22 6:59:00 EST, Height Ordered: warfarin 5 mg oral tablet,See Instructions, Take 5 mg 06/05, 2.5mg 2 and then as directed by PCP, # 30 tab(s), 2 Refill(s), Pharmacy: [facility] #30, 175, cm, 05/28/22 6:59:00 EST, Height End of Orders Hospital Course This is a 50-year-old female with a history of hypertension, hyperlipidemia, arthritis, tobacco abuse and a family history of premature heart disease who presented with complaints of midsternal chest pressure and shortness of breath with exertion. Echocardiogram completed showing EF 55 to 60% with bicuspid aortic valve with severe valve aortic stenosis. Heart catheterization was completed showed 60% stenosis of proximal LAD and 90% stenosis in the mid LAD, 80% stenosis of the RCA and a proximal 50% lesion in the left circumflex. CTA of the neck was completed showing 30% stenosis. On 06/02/2022 she underwent a coronary bypass graft x2 with saphenous vein graft to the LAD and RCA, and aortic valve replacement with a #[address] valve per Dr. Collazo. Vessels highly calcified. She developed ventricular arrhythmias intraoperatively and was initiated on amiodarone protocol. She tolerated procedure well was transferred to CV SICU in stable condition. Immediate postoperative course she was on epinephrine for hemodynamic stability. She had a PA catheter in place. She was on nitroglycerin for blood pressure management and epinephrine was discontinued. She was extubated on operative night. POD #1 amiodarone switched to oral. [place] inpatient endocrinology consulted for blood sugar management. Hemoglobin A1c 6.1. Initiate on beta-hans. Transfer to stepdown. POD #2 chest tubes discontinued. Beta-hans titrated. Lasix added. Initiated on Coumadin. POD #3 ambulating without difficulty. Labs and x-ray reviewed. Discharged home. PCP to manage Coumadin. Goal INR 2.0-2.5. Continue for 3 months. Received 5 mg on 06/04/2022 and 06/05/2022, to take 2.5 mg on 06/06/2022. Pro time INR to be completed on 06/07/2022. Home medications discontinued: Losartan, Crestor on hold secondary to elevated LFTs. CMP to be drawn on 06/15/2022 New medications Lasix and potassium for 3 days, amiodarone 400 mg twice daily through 06/12/2022 and then 200 mg daily for 30 days and then discontinue, Coumadin as directed for 3 months, metoprolol 25 mg twice daily Allergies NKA Procedures Result type: Operative Note Result date: June 02, 2022 0:00 EST Result status: Transcribed Result title: OPERATIVE NOTE Performed by: MEET COLLAZO MD on June 02, 2022 16:39 EST Encounter info: [id number], [place], Inpatient, 05/28/2022 - Contributor System: SCM-GL * Preliminary Report * OPERATIVE NOTE (Unverified) DATE OF PROCEDURE: 06/02/2022 PREOPERATIVE DIAGNOSES: 1. Severe coronary artery disease. 2. Severe calcified aortic valve stenosis. 3. Severe obesity. 4. Hypertension. 5. Hyperlipidemia. 6. Tobacco abuse. 7. Family history of premature coronary artery disease in the family. POSTOPERATIVE DIAGNOSES: 1. Severe coronary artery disease. 2. Severe calcified aortic valve stenosis. 3. Severe obesity. 4. Hypertension. 5. Hyperlipidemia. 6. Tobacco abuse. 7. Family history of premature coronary artery disease in the family. 8. Severe left ventricular hypertrophy and highly and severely calcified small LAD and distal RCA. OPERATIVE PROCEDURE: 1. Median sternotomy and aortic valve replacement with #21 mm Resilia valve by Hoppit,. 2. Coronary artery bypass graft x2 with patent good LIRA not used, highly calcified, saphenous vein graft to LAD and saphenous vein graft from aorta to PD RCA. Procedure was completed by institution of cardiopulmonary bypass machine with moderate hypothermia and cold blood potassium cardioplegia solution in antegrade and retrograde fashion for myocardial preservation. Cardiopulmonary bypass time 260 minutes. Aortic crossclamp time 225 minutes. Long pump run due to highly and technically challenging and difficult case. SURGEON'S NAME: Dr. Meet Collazo. MELT HOUSE DRAG OPERATOR: TOÑO Gilman and Sonya Camp, surgical asst and Ashlie Patiño. ANESTHESIA: Endotracheal general anesthesia. DRAIN: 32-Greek anterior mediastinal drain, temporary pacing wires to RV. OPERATIVE INDICATIONS: This is a 52-year-old obese female with history of hypertension, hyperlipidemia, arthritis, tobacco use 1-1/2 to 2 packs a day with strong family history of premature coronary artery disease and having midsternal pain and workup revealed severe aortic stenosis, aortic valve area of 0.7 cm and mean gradient 34 mmHg, peak gradient of 57, LAD proximal 60%, mid LAD 90% and RCA diffuse disease distally 80% and circumflex about 50%. LV functions are relatively 50% to 55%. The patient is referred for aortic valve replacement and bypass surgery. FINDINGS: This was one of the very difficult, technically challenging long case due to very diffuse and highly calcified small coronary LAD and distal RCA. LAD was opened after the second diagonal branch and we could not find a real lumen because of the highly calcified vessels or it was collapsed barely 1 mm and throughout this area was so calcified and not good area for bypass, so we repaired this with 7-0 Prolene sutures, then opened more distally again it was highly calcified above except we were able to open the vessel distally only 1 mm in size. This was so calcified and brittle calcification that left internal mammary artery will not work because of full calcified will not have a good flow. At this stage, reluctantly we ended up using the vein graft. This had about 90 mL of flow per minute. Distal RCA opened. Again, the same thing was highly calcified. No real lumen and then opened the proximal PD also very calcified, but we were able to find it was 1 mm to 1.25 mm in size. An end-to-side anastomosis with reverse saphenous vein graft from aorta was performed. Again, very oozy because of calcified vessels. This vein graft took about 80 mL of flow per minute. Case was long due to revising and putting so many sutures for the bleeding. Aortic valve is already long pump run. Aortic valve was highly calcified was excised, but a 23 sizer will not go and so the patient did not take chance for aortic root enlargement, because already it was long pump, afraid that she may not tolerate further long pump, so I ended up using 21 mm Resilia valve which seated nicely and the aorta was thick walled, soft, diseased, but aortotomy site was well repaired. Proximal anastomosis was fine. The patient came off cardiopulmonary bypass machine with epinephrine. Total cardioplegia given was large amount. Nonetheless, off pump, the patient resumed on her own rhythm at 85, normal sinus rhythm, no wall motion abnormality. The valve was seated nicely and good LV functions. DESCRIPTION OF PROCEDURE: The patient was brought to the operating room and after satisfactory endotracheal general anesthesia in supine position on the operating table with Meade-Mike ANDRE probe and arterial monitoring lines in place, the patient's entire body was prepped with ChloraPrep from chin down to the ankle, then draped in the usual sterile fashion. Third operative procedure is endoscopic vein harvest from the right leg for two grafts. After the patient was fully heparinized, upper arm fully prepped and draped, after timeout, median sternotomy skin incision was made, deepened down through deep subcutaneous tissue. Median sternotomy was carried out with a sternal saw, and then the greater saphenous vein was harvested by TOÑO from the left leg using endoscopic vein harvesting technique and then left chest wall was retracted up and the left internal mammary artery was dissected and mobilized long pedicle. The patient had excellent flow in the left internal mammary artery. Pericardium was then incised and suspended and the heart was exposed. The patient was then fully heparinized. Arterial cannulas were placed in the distal ascending aorta. A 2-stage venous cannula was placed in the inferior vena cava and through right atrial appendage and antegrade and retrograde cardioplegia catheters were placed. The patient was placed on the cardiopulmonary bypass machine. A total of 1500 mL of antegrade and retrograde cardioplegia solution infused. Good cardiac arrest was achieved and first we opened the distal PD branch. Could not find any real lumen and had to repair it, then hard to find the PD branch where we did find it was highly calcified 1.25 mm in size. End-to-side anastomosis with reverse saphenous vein grafts were performed just to do this anastomosis 2 to 3 times bolus of cardioplegia solution was infused for myocardial preservation. Then, the LAD was opened in the same manner after second diagonal branch highly calcified again, could not find good lumen. Again, it has to be repaired with 6-0 Prolene sutures and then opened further down. We did find the lumen which was highly calcified. LIRA pedicle will not sit nicely because it is diminished, will stretch out from the calcified vessels, so at this time the reverse saphenous vein graft was used. End-to-side anastomosis was performed which took 90 mL of flow and then tailored for the proximal anastomosis to the aorta and another retrograde cardioplegia solution was infused every 20 minutes or so and then aortotomy was performed. Aortic valve was examined with findings as dictated earlier. Transannular vent was placed and leaflets were excised and there was highly calcified 23 sizer valve not go easily and then 21 size valve was taken. This already was very long pump run, a lot of cardioplegia ideally needed aortic root replacement technically difficult and challenging with right ventricle covering the aorta and so ended up using 21 mm Resilia valve. Sutures were placed in the annulus circumferentially to Ethibond over pledgets and then passed through the Dacron ring circumferentially. The valve was lowered, seated nicely. CO2 insufflation was started throughout the procedure, and sutures were then ligated tightly using Cor-Knot and then the aortotomy was repaired with 4-0 Prolene sutures in 2 layers. Retrograde photographic equipment technician was infused and both vein grafts had good pulsatile and then antegrade photographic equipment technician was infused, retrograde catheter was removed and all the sites were repaired with 4-0 Prolene sutures. Lungs were ventilated. De-airing was done adequately and appropriately and coming off slowly, the patient aortic crossclamp removed, the lungs were ventilated, placed in good go a few times into V-fib and de-airing was done for both grafts again using 27 mm needles and heart was defibrillated again started beating spontaneously. The patient was given intravenous lidocaine and amiodarone and started on amiodarone drip and then the patient was slowly weaned off the cardiopulmonary bypass machine using epinephrine drip. On transfer, the patient's cardiac index was 3.2, good LV contractility. No wall motion abnormality and the valve was seated nicely. No paravalvular leak and no AI. There was no MR. Having heparinization completely off bypass, heparinization reversed with protamine sulfate decannulation in routine fashion. Adequate hemostasis secured. All the cannulation sites were reinforced with 4-0 Prolene sutures. Then 32-niuean anterior mediastinal drain was inserted and secured to the skin with #1 silk suture ligatures. Temporary pacing wires were applied to RV and secured to the skin. The sternum was closed after vancomycin paste was applied to the bone marrow and #7 interrupted stainless steel wires after irrigation of subcutaneous tissue copiously. Subcutaneous tissue and linea alba was closed with 0 Vicryl in running interrupted fashion in 2 layers, second layer with 2-0 Vicryl and stainless steel skin shay for the skin closures. Sterile dry dressing was applied and the patient was then transferred back to surgical [facility] ICU and intubated in stable condition having tolerated the procedure well. First 24 to 48 hours, the patient stays critical. Sponge, instrument, and needle count reported to be correct. Meet Collazo MD Consults Consult to [facility] Endocrinology - Ordered -- 06/03/22 9:30:00 EST, Diabetic management status post CABG and AVR, KHAI FERRER MD. Consult to Cardiac Rehabilitation - Ordered -- 06/03/22 13:05:00 EST, CABG Consult to Diabetes Education (Consult to Diabetic Nurse Specialist) - Ordered -- 06/03/22 15:18:00 EST, Blood Glucose Monitoring, Once, new prediabetic, glucometer teaching, complications teaching Consult to Physician - Ordered -- 05/28/22 11:48:00 EST, MEET COLLAZO MD, Routine, Moderate severe . Severe LAD and RCA disease. Valve and CABG eval. Imaging Results and Diagnostics XR Chest 2 Views Result Date: June 05, 2022 Verified By: KATHRYN BLACKWELL, JAMES Mccallum CLINICAL STATEMENT: IMPRESSION: Small postoperative pneumomediastinum is still present. Small bilateral pleural effusions with mild bilateral lower lobe atelectasis. Objective Vitals and Measurements T: 36.6 C (Oral) TMIN: 36.6 C (Oral) TMAX: 36.9 C (Oral) HR: 78(Monitored) RR: 16 BP: 133/74 SpO2: 94% WT: 111.8 kg Weight Current Weight Dosing Weight: 111.8 kg (05/28/22) Current Weight: 111.8 kg (06/05/22) Current Weight: 115 kg (06/04/22) Neurological: Alert and orient x3, appropriate Lungs: Clear Heart: Regular S1-S2, NSR Incisions: Midsternal with shay intact without drainage Abdomen: Soft, positive bowel sounds, positive BM Extremities: Well-perfused, no edema Complete Blood Count WBC: 10.7 10^3/mcL (06/05/22 04:34:00) RBC: 3.18 10^6/mcL Low (06/05/22 04:34:00) Hgb: 9.8 G/dL Low (06/05/22 04:34:00) Hct: 28.3 % Low (06/05/22 04:34:00) MCV: 88.8 fL (06/05/22 04:34:00) MCH: 30.8 pg (06/05/22 04:34:00) MCHC: 34.7 G/dL (06/05/22 04:34:00) RDW: 12.8 % (06/05/22 04:34:00) Platelet: 135 10^3/mcL Low (06/05/22 04:34:00) MPV: 7.7 fL (06/05/22 04:34:00) Comprehensive Metabolic Profile Glucose Level: 101 mg/dL (06/05/22 04:34:00) Sodium Level: 138 mEq/L (06/05/22 04:34:00) Potassium Level: 3.8 mEq/L (06/05/22 04:34:00) Chloride: 102 mEq/L (06/05/22 04:34:00) CO2: 30 mEq/L (06/05/22 04:34:00) Creatinine Lvl (s): 0.79 mg/dL (06/05/22 04:34:00) BUN/Creatinine Ratio: 17.7 ratio (06/05/22 04:34:00) Calcium Lvl: 9.5 mg/dL (06/05/22 04:34:00) Code Status Code Status - Ordered -- 05/28/22 8:44:00 EST, Full Code, Constant Order Admission Date 05/28/2022 Discharge Date 06/05/2022 Patient Instructions Use spirometer 10 times every hour while awake, weigh daily and keep log, bring log to follow-up appointment on 06/16/2022, keep legs elevated while in chair, call for fever greater than 101, sudden shortness of breath, purulent drainage from incisions. [id number] Medications New Prescription [id number] Milligram by mouth every 4 hours as needed Pain, scale 1-6. amiodarone (amiodarone 200 mg oral tablet)Take 2 tablets twice daily through 06/12/2022, beginning 06/13/2022 take 1 tablet daily for 30 days and then stop. Refills: 0. docusate (Surfak Stool Softener)240 Milligram by mouth two (2) times a day as needed as needed for constipation. furosemide (Lasix 20 mg oral tablet)1 tab(s) by mouth every day for 3 Days. Take for 3 days. Refills: 0. metoprolol (metoprolol tartrate 25 mg oral tablet)1 tab(s) by mouth twice daily with meals. Refills: 3. oxyCODONE (oxyCODONE 5 mg oral tablet ( IMMEDIATE release ))1 tab(s) by mouth every 6 hours as needed Pain, scale 4-6 for 3 Days. Refills: 0. potassium chloride (potassium chloride 20 mEq oral tablet, extended release)1 tab(s) by mouth once a day with a meal for 3 Days. Take for 3 days. Refills: 0. warfarin (warfarin 5 mg oral tablet)Take 5 mg 06/05, 2.5mg 2 and then as directed by PCP. Refills: 2. Unchanged aspirin (aspirin 81 mg oral delayed release tablet)1 tab(s) by mouth once a day. multivitamin (Multiple Vitamins oral tablet)1 tab(s) by mouth every day. Discontinued losartan (losartan 50 mg oral tablet)1 tab(s) by mouth once a day. rosuvastatin (rosuvastatin 20 mg oral tablet)1 tab(s) by mouth once a day. I have reviewed the [place] Automated Rx Reporting System (OARRS) report for this patient for refill pattern and other prescriber involvement as part of the appropriate surveillance for the provision of acute and chronic controlled medications. The report was requested and reviewed on the date of this entry, and was considered in the prescribing process Follow Up Follow Up with SUSIE ARRIETA MD When 07/09/2022 04:15 PM EDT Where: [address] [facility] [place] [address]- Follow Up with LANGFORDELOISE ANDERSON When 06/16/2022 02:00 PM EST Why: Report to [facility] radiology department 1 hour prior to office visit for a chest x-ray Where: [address] [facility] [place] [address]- Follow Up with RACHEL CAMPBELL When 06/07/2022 02:30 PM EST Why: This is your appointment for coumadin management. Where: [address] [place] [address]- [phone] Business (1) Follow Up with MICHAEL SAMUEL When Why: Please call the office to schedule a follow up appointment Where: [address] [place] [address]- Business (1) Follow Up with [facility] When Why: A referral has been made to [facility] on your behalf for RN services to follow at discharge. A nurse will contact you at your home to schedule your first appt. Please contact , with any questions or concerns you may have. Follow Up with Cardiac Rehab- [facility] When Why: The Cardiac Rehab department will call you to schedule you for phase 2. We left you a brochure with information about cardiac rehab. If you have any questions please call [phone]. Where: [address] [place] [address]- Follow Up Appointments No qualifying data available. Follow Up Labs/Studies Discharge Labs Discharge Outpatient Labwork - Ordered -- protime/INR, AVR, Results Notify to: IZZY SAMUEL Results Notify to: Margarita Brandon, Goal INR 2.0-2.5, PCP to manage, 06/05/22 10:40:00 EST Discharge Outpatient Labwork - Ordered -- CMP, electrolyte imbalance, Results Notify to: ELOISE LANGFORD, [facility] to draw om 06/15/2022, 06/05/22 10:40:00 EST Discharge Studies No Follow-up Studies Discharge Diet Discharge Diet - Ordered -- Type of Diet: Regular, Diet Restrictions: Low cholesterol, Diabetic, 06/05/22 11:05:00 EST Discharge Activity Discharge Activity - Ordered -- May Shower Lifting Restricted less than 10 pounds, No driving, Restrictions for 6 weeks, 06/05/22 10:40:00 EST Condition on Discharge Stable Readmission Risk/Palliative Score No qualifying data available. Discharge Disposition Home with family and C Information Provided To Patient Time Spent 30 minutes Digitally Signed by SERJIO PA on 06/05/2022 01:40 PM [facility] 06-05-2022 Note Discharge Instructions Thank you for allowing [facility] to assist you with your healthcare needs. The following is important discharge information regarding your hospital visit. Your Care Team IZZY SAMUEL MICHAEL Your Diagnosis CAD (coronary artery disease) EF 55-60%, s/p CABG x2 with Vein grafts 06/02/22 Aortic stenosis s/p AVR 06/02/22 Pre-diabetes Hgb A1c 6.1% HTN (hypertension) Hyperlipemia Arthritis Tobacco use Family history of premature CAD Obesity (BMI 30-39.9) Carotid stenosis, left Acute post-operative pain What to do next Instructions From Your Doctor He said a spirometer 10 times every hour while awake, weigh daily and keep log, bring log to follow-up appointment on 06/16/2022, keep legs elevated while in chair, call for fever greater than 101, sudden shortness of breath, purulent drainage from incisions. [id number] Scheduled Follow-Up Appointments Appointment Type When With Where Contact InformationCTS OV Post Op 06/16/2022 02:00 PM EST ELOISE LANGFORD [facility] Cardiothoracic Surgery [facility] Hospital Follow Up 07/09/2022 04:15 PM EDT [facility] Follow Up Appointments Follow Up with SUSIE ARRIETA MD When 07/09/2022 04:15 PM EDT Where: [address] [facility] [address] [place] [address]- Follow Up with ELOISE LANGFORD When 06/16/2022 02:00 PM EST Why: Report to [facility] radiology department 1 hour prior to office visit for a chest x-ray Where: [address] [facility] [place] [address]- Follow Up with RACHEL CAMPBELL When 06/07/2022 02:30 PM EST Why: This is your appointment for coumadin management. Where: [address] [place] [address]- [phone] Business (1) Follow Up with MICHAEL SAMUEL When Why: Please call the office to schedule a follow up appointment Where: [address] [place] [address]- Business (1) Follow Up with [facility] When Why: A referral has been made to [facility] on your behalf for RN services to follow at discharge. A nurse will contact you at your home to schedule your first appt. Please contact , with any questions or concerns you may have. Follow Up with Cardiac Rehab- [facility] When Why: The Cardiac Rehab department will call you to schedule you for phase 2. We left you a brochure with information about cardiac rehab. If you have any questions please call [phone]. Where: [address] [place] [address]- The Following Activity and Diet Have Been Ordered for You Discharge Activity - Ordered -- May Shower Lifting Restricted less than 10 pounds, No driving, Restrictions for 6 weeks, 06/05/22 10:40:00 EST Discharge Diet - Ordered -- Type of Diet: Regular, Diet Restrictions: Low cholesterol, 06/05/22 10:40:00 EST The Following Equipment Has Been Ordered for You Discharge Home Equipment Discharge Wound Care - Ordered -- Wash incisions with soap and water, shay will be removed at office visit 06/16, 06/05/22 10:40:00 EST The Following Treatments Have Been Ordered for You Discharge Labs Discharge Outpatient Labwork - Ordered -- protime/INR, AVR, Results Notify to: IZZY SAMUEL Results Notify to: Margarita Brandon, Goal INR 2.0-2.5, PCP to manage, 06/05/22 10:40:00 EST Discharge Outpatient Labwork - Ordered -- CMP, electrolyte imbalance, Results Notify to: ELOISE LANGFORD APRN-SHIP DESIGN TEACHER, [facility] to draw om 06/15/2022, 06/05/22 10:40:00 EST Discharge Radiology No qualifying data available. Other Therapies No qualifying data available. Post Acute Orders No qualifying data available. Someone Will Contact You Regarding These Home Health Referrals No home referrals have been ordered for you. No one will call you. Allergies NKA Medications Please ask your primary doctor or pharmacist before taking any other medication not listed, including over the counter drugs, herbal medications, vitamins and or supplements as they may interact with your home medications. What How Much When Why Instructions Last Dose New acetaminophen 650 Milligram by mouth Every 4 hours as needed for Pain, scale 1-6 New amiodarone (amiodarone 200 mg oral tablet) See instructions Take 2 tablets twice daily through 2022, beginning 2022 take 1 tablet daily for 30 days and then stop [facility]up at [facility] New docusate (Surfak Stool Softener) 240 Milligram by mouth Two (2) times a day as needed for as needed for constipation New furosemide (Lasix 20 mg oral tablet) 1 tab(s) by mouth Every day Duration: 3 Days Take for 3 days Pickup at [facility] New metoprolol (metoprolol tartrate 25 mg oral tablet) 1 tab(s) by mouth Twice daily with meals Refills: 3 Pickup at [facility] New oxyCODONE (oxyCODONE 5 mg oral tablet ( IMMEDIATE release )) 1 tab(s) by mouth Every 6 hours as needed for Pain, scale 4-6 Acute post-operative pain Duration: 3 Days Pickup at [facility] New potassium chloride (potassium chloride 20 mEq oral tablet, extended release) 1 tab(s) by mouth Once a day with a meal Duration: 3 Days Take for 3 days Pickup at [facility] New warfarin (warfarin 5 mg oral tablet) See instructions Refills: 2 Take 5 mg , 2.5mg and then as directed by PCP [facility] at [facility] Unchanged aspirin (aspirin 81 mg oral delayed release tablet) 1 tab(s) by mouth Once a day Unchanged multivitamin (Multiple Vitamins oral tablet) 1 tab(s) by mouth Every day Pharmacy Information [facility]: [address] [place], [place] [id number] [phone] What How Much When Comments Stop Taking losartan (losartan 50 mg oral tablet) 1 tab(s) by mouth Once a day Stop Taking rosuvastatin (rosuvastatin 20 mg oral tablet) 1 tab(s) by mouth Once a day Please take this list to your next doctor s visit. Bring all medications you take, including over the counter medications, herbals and other supplements with you to your doctor s visit. Patients and families are reminded to discard old lists and to update any records with all medication providers or retail pharmacies. Education Materials What You Need to Know About Warfarin Warfarin is a blood thinner (anticoagulant). Anticoagulants help to prevent the formation of blood clots. They also help to stop the growth of blood clots. Who should use warfarin? Warfarin is prescribed for people who are at risk for developing harmful blood clots, such as people who have: Surgically implanted mechanical heart valves. Irregular heart rhythms (atrial fibrillation). Certain clotting disorders. A history of harmful blood clotting in the past. This includes people who have had: ? A stroke. ? Blood clot in the lungs (pulmonary embolism, or PE). ? Blood clot in the legs (deep vein thrombosis, or DVT). An existing blood clot. How is warfarin taken? Warfarin is a medicine that you take by mouth (orally). Warfarin tablets come in different strengths. Each tablet strength is a different color, with the amount of warfarin printed on the tablet. If you get a new prescription filled and the color of your tablet is different than usual, tell your pharmacist or health care provider immediately. What blood tests do I need while taking warfarin? The goal of warfarin therapy is to lessen the clotting tendency of blood, but not to prevent clotting completely. Your health care provider will monitor the anticoagulation effect of warfarin closely and will adjust your dose as needed. Warfarin is a medicine that needs to be closely monitored, so it is very important to keep all lab visits and follow-up visits with your health care provider. While taking warfarin, you will need to have blood tests (prothrombin tests, or PT tests) regularly to measure your blood clotting time. This type of test can be done with a finger stick or a blood draw. What does the INR test result mean? The PT test results will be reported as the International Normalized Ratio (INR). The INR tells your health care provider whether your dosage of warfarin needs to be changed. The longer it takes your blood to clot, the higher the INR. Your health care provider will tell you your target INR range. If your INR is not in your target range, your health care provider may adjust your dosage. If your INR is above your target range, there is a risk of bleeding. Your dosage of warfarin may need to be decreased. If your INR is below your target range, there is a risk of clotting. Your dosage of warfarin may need to be increased. How often is the INR test needed? When you first start warfarin, you will usually have your INR checked every few days. You may need to have INR tests done more than once a week until you are taking the correct dosage of warfarin. After you have reached your target INR, your INR will be tested less often. However, you will need to have your INR checked at least once every 4 6 weeks for the entire time you are taking warfarin. What are the side effects of warfarin? Too much warfarin can cause bleeding (hemorrhage) in any part of the body, such as: Bleeding from the gums. Unexplained bruises. Bruises that get larger. Blood in the urine. Bloody or dark stools. Bleeding in the brain (hemorrhagic stroke). A nosebleed that is not easily stopped. Coughing up blood. Vomiting blood. Warfarin use may also cause: Skin rash or irritations Nausea that does not go away. Severe pain in the back or joints. Painful toes that turn blue or purple (purple toe syndrome). Painful ulcers that do not go away (skin necrosis). What are the signs and symptoms of a blood clot? Too little warfarin can increase the risk of blood clots in your legs, lungs, or arms. Signs and symptoms of a DVT in your leg or arm may include: Pain or swelling in your leg or arm. Skin that is red or warm to the touch on your arm or leg. Signs and symptoms of a pulmonary embolism may include: Shortness of breath or difficulty breathing. Chest pain. Unexplained fever. What are the signs and symptoms of a stroke? If you are taking too much or too little warfarin, you can have a stroke. Signs and symptoms of a stroke may include: Weakness or numbness of your face, arm, or leg, especially on one side of your body. Confusion or trouble thinking clearly. Difficulty seeing with one or both eyes. Difficulty walking or moving your arms or legs. Dizziness. Loss of balance or coordination. Trouble speaking, trouble understanding speech, or both (aphasia). Sudden, severe headache with no known cause. Partial or total loss of consciousness. What precautions do I need to take while using warfarin? Take warfarin exactly as told by your health care provider. Doing this helps you avoid bleeding or blood clots that could result in serious injury, pain, or disability. Take your medicine at the same time every day. If you forget to take your dose of warfarin, take it as soon as you remember that day. If you do not remember on that day, do not take an extra dose the next day. Contact your health care provider if you miss or take an extra dose. Do not change your dosage on your own to make up for missed or extra doses. Wear or carry identification that says that you are taking warfarin. Make sure that all health care providers, including your dentist, know you are taking warfarin. If you need surgery, talk with your health care provider about whether you should stop taking warfarin before your surgery. Avoid situations that cause bleeding. You may bleed more easily while taking warfarin. To limit bleeding, take the following actions: ? Use a softer toothbrush. ? Floss with waxed floss, not unwaxed floss. ? Shave with an electric razor, not with a blade. ? Limit your use of sharp objects. ? Avoid potentially harmful activities, such as contact sports. What do I need to know about warfarin and or ? Warfarin is not recommended during the first trimester of due to an increased risk of defects. In certain situations, a woman may take warfarin after her first trimester of . If you are taking warfarin and you become or plan to become , contact your health care provider right away. If you plan to breastfeed while taking warfarin, talk with your health care provider first. What do I need to know about warfarin and alcohol or drug use? Avoid drinking alcohol, or limit alcohol intake to no more than 1 drink a day for non women and 2 drinks a day for men. One drink equals 12 oz of beer, 5 oz of wine, or 1 oz of hard liquor. ? If you change the amount of alcohol that you drink, tell your health care provider. Your warfarin dosage may need to be changed. Avoid tobacco products, such as cigarettes, chewing tobacco, and e-cigarettes. If you need help quitting, ask your health care provider. ? If you change the amount of nicotine or tobacco that you use, tell your health care provider. Your warfarin dosage may need to be changed. Avoid street drugs while taking warfarin. The effects of street drugs on warfarin are not known. What do I need to know about warfarin and other medicines or supplements? Many prescription and hgkf-inn-gcruiuq medicines can interfere with warfarin. Talk with your health care provider or your pharmacist before starting or stopping any new medicines. This includes jgtj-iqv-cnomxld vitamins, dietary supplements, herbal medicines, and pain medicines. Your warfarin dosage may need to be adjusted. Some common wxag-bax-xugoxvf medicines that may increase the risk of bleeding while taking warfarin include: ? Acetaminophen. ? Aspirin. ? NSAIDs, such as ibuprofen or naproxen. ? Vitamin E. What do I need to know about warfarin and my diet? It is important to maintain a normal, balanced diet while taking warfarin. Avoid major changes in your diet. If you are going to change your diet, talk with your health care provider before making changes. Your health care provider may recommend that you work with a diet and crop nutrition scientist (dietitian). Vitamin K decreases the effect of warfarin, and it is found in many foods. Eat a consistent amount of foods that contain vitamin K. For example, you may decide to eat 2 vitamin K-containing foods each day. Most foods that are high in vitamin K are green and leafy. Common foods that contain high amounts of vitamin K include: Kale, raw or cooked. Spinach, raw or cooked. Collards, raw or cooked. Barbadian chard, raw or cooked. Mustard greens, raw or cooked. Turnip greens, raw or cooked. Parsley, raw. Broccoli, cooked. Noodles, eggs, and spinach, enriched. [place] sprouts, raw or cooked. Beet greens, raw or cooked. Endive, raw. Cabbage, cooked. Asparagus, cooked. Foods that contain moderate amounts of vitamin K include: Broccoli, raw. Cabbage, raw. Bok barney, cooked. Green leaf lettuce, raw Prunes, stewed. Pickles. Kiwi. Edamame, cooked. Carlos lettuce, raw. Avocado. Tuna, canned in oil. Okra, cooked. Black-eyed peas, cooked. Green beans, cooked or raw. Blueberries, raw. Blackberries, raw. Peas, cooked or raw. Contact a health care provider if: You miss a dose. You take an extra dose. You plan to have any kind of surgery or procedure. You are unable to take your medicine due to nausea, vomiting, or diarrhea. You have any major changes in your diet or you plan to make any major changes in your diet. You start or stop any ixjf-xot-dhcohsn medicine, prescription medicine, or dietary supplement. You become , plan to become , or think you may be . You have menstrual periods that are heavier than usual. You have unusual bruising. Get help right away if: You develop symptoms of an allergic reaction, such as: ? Swelling of the lips, face, tongue, mouth, or throat. ? Rash. ? Itching. ? Itchy, red, swollen areas of skin (hives). ? Trouble breathing. ? Chest tightness. You have: ? Signs or symptoms of a stroke. ? Signs or symptoms of a blood clot. ? A fall or have an accident, especially if you hit your head. ? Blood in your urine. Your urine may look reddish, pinkish, or tea-colored. ? Blood in your stool. Your stool may be black or bright red. ? Bleeding that does not stop after applying pressure to the area for 30 minutes. ? Severe pain in your joints or back. ? Purple or blue toes. ? Skin ulcers that do not go away. You vomit blood or cough up blood. The blood may be bright red, or it may look like coffee grounds. These symptoms may represent a serious problem that is an emergency. Do not wait to see if the symptoms will go away. Get medical help right away. Call your local emergency services (911 in the [place] Do not drive yourself to the hospital. Summary Warfarin needs to be closely monitored with blood tests. It is very important to keep all lab visits and follow-up visits with your health care provider. Make sure that you know your target INR range and your warfarin dosage. Wear or carry identification that says that you are taking warfarin. Take warfarin at the same time every day. Call your health care provider if you miss a dose or if you take an extra dose. Do not change the dosage of warfarin on your own. Know the signs and symptoms of blood clots, bleeding, and a stroke. Know when to get emergency medical help. Tell all health care providers who care for you that you are taking warfarin. Talk with your health care provider or your pharmacist before starting or stopping any new medicines. Monitor how much vitamin K you eat every day. Try to eat the same amount every day. This information is not intended to replace advice given to you by your health care provider. Make sure you discuss any questions you have with your health care provider. Document Released: 04/11/2006 Document Revised: 11/22/2017 Document Reviewed: 07/07/2016 [employer] Patient Education 2020 [employer] Steps to Quit Smoking Smoking tobacco is the leading cause of preventable . It can affect almost every organ in the body. Smoking puts you and those around you at risk for developing many serious chronic diseases. Quitting smoking can be difficult, but it is one of the best things that you can do for your health. It is never too late to quit. How do I get ready to quit? When you decide to quit smoking, create a plan to help you succeed. Before you quit: Pick a date to quit. Set a date within the next 2 weeks to give you time to prepare. Write down the reasons why you are quitting. Keep this list in places where you will see it often. Tell your family, friends, and co-workers that you are quitting. Support from your loved ones can make quitting easier. Talk with your health care provider about your options for quitting smoking. Find out what treatment options are covered by your health insurance. Identify people, places, things, and activities that make you want to smoke (triggers). Avoid them. What first steps can I take to quit smoking? Throw away all cigarettes at home, at work, and in your car. Throw away smoking accessories, such as ashtrays and lighters. Clean your car. Make sure to empty the ashtray. Clean your home, including curtains and carpets. What strategies can I use to quit smoking? Talk with your health care provider about combining strategies, such as taking medicines while you are also receiving in-person counseling. Using these two strategies together makes you more likely to succeed in quitting than if you used either strategy on its own. If you are or , talk with your health care provider about finding counseling or other support strategies to quit smoking. Do not take medicine to help you quit smoking unless your health care provider tells you to do so. To quit smoking: Quit right away Quit smoking completely, instead of gradually reducing how much you smoke over a period of time. Research shows that stopping smoking right away is more successful than gradually quitting. Attend in-person counseling to help you build problem-solving skills. You are more likely to succeed in quitting if you attend counseling sessions regularly. Even short sessions of 10 minutes can be effective. Take medicine You may take medicines to help you quit smoking. Some medicines require a prescription and some you can purchase pahx-fay-awnctec. Medicines may have nicotine in them to replace the nicotine in cigarettes. Medicines may: Help to stop cravings. Help to relieve withdrawal symptoms. Your health care provider may recommend: Nicotine patches, gum, or lozenges. Nicotine inhalers or sprays. Non-nicotine medicine that is taken by mouth. Find resources Find resources and support systems that can help you to quit smoking and remain smoke-free after you quit. These resources are most helpful when you use them often. They include: Online chats with a counselor. Telephone quitlines. Printed self-help materials. Support groups or group counseling. Text messaging programs. Mobile phone apps or applications. Use apps that can help you stick to your quit plan by providing reminders, tips, and encouragement. There are many free apps for mobile devices as well as websites. Examples include Quit Guide from the CDC and smokefree.gov What things can I do to make it easier to quit? Reach out to your family and friends for support and encouragement. Call telephone quitlines (5-629-DPXG-NOW), reach out to support groups, or work with a counselor for support. Ask people who smoke to avoid smoking around you. Avoid places that trigger you to smoke, such as bars, parties, or smoke-break areas at work. Spend time with people who do not smoke. Lessen the stress in your life. Stress can be a smoking trigger for some people. To lessen stress, try: ? Exercising regularly. ? Doing deep-breathing exercises. ? Doing yoga. ? Meditating. ? Performing a body scan. This involves closing your eyes, scanning your body from head to toe, and noticing which parts of your body are particularly tense. Try to relax the muscles in those areas. How will I feel when I quit smoking? Day 1 to 3 weeks Within the first 24 hours of quitting smoking, you may start to feel withdrawal symptoms. These symptoms are usually most noticeable 2 3 days after quitting, but they usually do not last for more than 2 3 weeks. You may experience these symptoms: Mood swings. Restlessness, anxiety, or irritability. Trouble concentrating. Dizziness. Strong cravings for sugary foods and nicotine. Mild weight gain. Constipation. Nausea. Coughing or a sore throat. Changes in how the medicines that you take for unrelated issues work in your body. Depression. Trouble sleeping (insomnia). Week 3 and afterward After the first 2 3 weeks of quitting, you may start to notice more positive results, such as: Improved sense of smell and taste. Decreased coughing and sore throat. Slower heart rate. Lower blood pressure. Clearer skin. The ability to breathe more easily. Fewer sick days. Quitting smoking can be very challenging. Do not get discouraged if you are not successful the first time. Some people need to make many attempts to quit before they achieve long-term success. Do your best to stick to your quit plan, and talk with your health care provider if you have any questions or concerns. Summary Smoking tobacco is the leading cause of preventable . Quitting smoking is one of the best things that you can do for your health. When you decide to quit smoking, create a plan to help you succeed. Quit smoking right away, not slowly over a period of time. When you start quitting, seek help from your health care provider, family, or friends. This information is not intended to replace advice given to you by your health care provider. Make sure you discuss any questions you have with your health care provider. Document Released: 04/05/2002 Document Revised: 06/29/2019 Document Reviewed: 06/30/2019 [employer] Patient Education 2020 [employer] Daily Weight Record It is important to weigh yourself daily. To do this: Make sure you use a reliable scale. Use the same scale each day. Keep this daily weight chart near your scale. Weigh yourself each morning at the same time. Before weighing yourself: ? Take off your shoes. ? Make sure you are wearing the same amount of clothing each day. Write down your weight in the spaces on the form. Compare today's weight to yesterday's weight. Bring this form with you to your follow-up visits with your health care provider. Call your health care provider if you have concerns about your weight, including rapid weight gain or loss. Date: Weight: Date: Weight: Date: Weight: Date: Weight: Date: Weight: Date: Weight: Date: Weight: Date: Weight: Date: Weight: Date: Weight: Date: Weight: Date: Weight: Date: Weight: Date: Weight: Date: Weight: Date: Weight: Date: Weight: Date: Weight: Date: Weight: Date: Weight: Date: Weight: Date: Weight: Date: Weight: Date: Weight: Date: Weight: Date: Weight: Date: Weight: Date: Weight: Date: Weight: Date: Weight: Date: Weight: Date: Weight: Date: Weight: Date: Weight: Date: Weight: Date: Weight: Date: Weight: Date: Weight: Date: Weight: Date: Weight: Date: Weight: Date: Weight: Date: Weight: Date: Weight: Date: Weight: Date: Weight: Date: Weight: Date: Weight: Date: Weight: Date: Weight: This information is not intended to replace advice given to you by your health care provider. Make sure you discuss any questions you have with your health care provider. Document Released: 06/23/2007 Document Revised: 04/10/2018 Document Reviewed: 04/10/2018 Elsevier Patient Education 2020 [employer] OPEN HEART SURGERY (Bypass or Valve Surgery) General Guidelines for Care After Surgery Please read the instructions below and refer to it during the next few weeks. Recovering from surgery is different for everyone. Some people feel great after 3 or 4 weeks and others take longer depending on their condition before the surgery. These are general guidelines on how to care for yourself but always follow your doctor s instructions. If you have questions or problems after you go home, please call your doctor. MEDICINES You have the list of medicine you need to take at home. Be sure you understand this list and keep a copy with you at all times. Never add or stop medicine unless you check with your doctor first. Call the doctor if you have any of the following problems: If you start throwing up or have stomach pain or diarrhea If you feel dizzy or lightheaded when you stand up If you are confused or have trouble walking If you feel like your heart is racing and beating fast or if you feel like it is beating too slow If you get a rash If you notice bleeding or lots of bruising If you are taking a blood thinner such as warfarin after having valve surgery, please read the handout that has been given to you by the nurse. PAIN AFTER SURGERY You might feel some pain after your heart surgery. Please take your pain medicine if you need it following the directions on the bottle. If your pain becomes worse or if you are having trouble breathing, call your surgeon. As you heal and the pain begins to go away, take your pain medicine less often Pain medicine will sometimes cause you to become constipated. It is OK to take an over the counter stool softener. Eating lots of fruit and vegetables can also help with constipation. CARE OF YOUR INCISIONS Pay attention to your incisions and shower every day after you go home. Some swelling, bruising or redness is normal and will get better with time. Do not take a bath until all of your incisions are healed. Wash the incisions gently with antibacterial soap and water in the shower Use a clean washcloth every day Wash your chest incision first, then wash any arm incision, and last wash leg incisions Wash the rest of your body after cleaning all of your incisions Never use any cream or lotion on your incisions until they are healed all the way. Keep your incisions clean and dry Do not cover the incision with a dressing unless you are having drainage If you have shay, they will be taken out at the office visit You might notice some swelling or a lump at the top of the chest incision, but this is normal. Call your surgeon right away if you notice clicking in your chest. Your legs might swell after your surgery so follow these tips: Keep legs elevated when sitting. As a rule, it is best to elevate them above the level of your heart. For instance, if you are lying flat on a sofa, place your legs up on the arm of the sofa. Do not cross your legs. Wear your elastic stockings during the day for 4 weeks. Put them on before you get out of bed in the morning and then take them off at night. These will help keep your legs from swelling. ACTIVITY It is important to keep moving after heart surgery, but you will need to take rest periods throughout the day. Every day, increase your activity as you are able. Walk as much as possible, and gradually increase your distance every day. It will be normal to be sore for a couple of weeks after surgery. Get medical attention if your condition seems to be getting worse instead of better No heavy housework or heavy work outdoors You may use the stairs as tolerated Avoid lifting anything greater than 10 pounds Avoid any pushing or pulling with your arms. Avoid overexertion and take rest periods when you get tired Do not drive until your doctor tells you it is OK, typically 4 weeks. It is fine to go upstairs but take it slow and do not pull yourself up with the handrail. Avoid opening windows and opening tight jar lids. Do not bear down with bowel movements and do not hold your breath. Check with the surgeon before returning to work. Waiting 1-3 weeks is recommended for sexual intercourse. When you can walk briskly or climb 2 flights of stairs without pain or shortness of breath, you may be ready for sex. WEIGHT Weigh yourself every morning and write it down on paper. Use the same scale and weigh at the same time each day. Tell your doctor if you gain 2 pounds or more in one day. EATING HEALTHY Your doctor wants you to follow a heart healthy diet which is low in salt and low in fat. Your nurse has given you a book all about the diet you will need to follow. If you are diabetic or overweight, you will be given a calorie restriction too. If constipation is a problem, add more bran or fiber to your diet and you may take a mild qnyl-nyg-bebbpsu laxative like Milk of Magnesia . CARDIAC REHABILITATION Getting involved in cardiac rehab after your heart surgery is the best thing that you can do to feel better and stronger at a faster rate. The program is medically supervised to help patients recover and improve mental and physical function. It also helps reduce stress and can decrease your risk of having more heart problems. Your doctor will let you know when you can begin the program. SMOKING Give up smoking after heart surgery or it may cancel out the value of having your surgery. It may also delay the healing process. If you need help to quit, please call your surgeon or your heart doctor. [facility] also has a free stop smoking program called Give it Up and if you want to attend, please call [phone] ([phone]). Call the Surgeon If your incisions are red, oozing pus, or bleeding or if the edges are Call if there is a clicking in your sternum. Call if you are more short of breath. Call if you have dizziness Call if you have a fever of 101 or higher. Call if you have more ankle swelling, pain in your leg, or pain in your calf. Call the Heart Doctor (Kitchen Worker) If your heart beats are irregular or are fast. If you have any questions about your medicine. If you gain 2 or more pounds in one day. If you feel dizzy or lightheaded when you first stand up. If you have any questions about getting help at home after you are discharged. If you have painful, frequent or bloody urination. GET IMMEDIATE MEDICAL HELP IF YOU HAVE: Chest pain, jaw pain, sweating, dizziness or severe shortness of breath, you could be having a heart attack. Please dial 9-1-1 immediately. Prediabetes Eating Plan Prediabetes is a condition that causes blood sugar (glucose) levels to be higher than normal. This increases the risk for developing diabetes. In order to prevent diabetes from developing, your health care provider may recommend a diet and other lifestyle changes to help you: Control your blood glucose levels. Improve your cholesterol levels. Manage your blood pressure. Your health care provider may recommend working with a diet and crop nutrition scientist (dietitian) to make a meal plan that is best for you. What are tips for following this plan? Lifestyle Set weight loss goals with the help of your health care team. It is recommended that most people with prediabetes lose 7% of their current body weight. Exercise for at least 30 minutes at least 5 days a week. Attend a support group or seek ongoing support from a mental health counselor. Take dwtq-npe-vuppuze and prescription medicines only as told by your health care provider. Reading food labels Read food labels to check the amount of fat, salt (sodium), and sugar in prepackaged foods. Avoid foods that have: ? Saturated fats. ? Trans fats. ? Added sugars. Avoid foods that have more than 300 milligrams (mg) of sodium per serving. Limit your daily sodium intake to less than 2,300 mg each day. Shopping Avoid buying pre-made and processed foods. Cooking Cook with olive oil. Do not use butter, lard, or ghee. Bake, broil, grill, or boil foods. Avoid frying. Meal planning Work with your dietitian to develop an eating plan that is right for you. This may include: ? Tracking how many calories you take in. Use a food diary, notebook, or mobile application to track what you eat at each meal. ? Using the glycemic index (GI) to plan your meals. The index tells you how quickly a food will raise your blood glucose. Choose low-GI foods. These foods take a longer time to raise blood glucose. Consider following a Mediterranean diet. This diet includes: ? Several servings each day of fresh fruits and vegetables. ? Eating fish at least twice a week. ? Several servings each day of whole grains, beans, nuts, and seeds. ? Using olive oil instead of other fats. ? Moderate alcohol consumption. ? Eating small amounts of red meat and whole-fat dairy. If you have high blood pressure, you may need to limit your sodium intake or follow a diet such as the DASH eating plan. DASH is an eating plan that aims to lower high blood pressure. What foods are recommended? The items listed below may not be a complete list. Talk with your dietitian about what dietary choices are best for you. Grains Whole grains, such as whole-wheat or whole-grain breads, crackers, cereals, and pasta. Unsweetened oatmeal. Bulgur. Barley. Quinoa. Brown rice. [place] or whole-wheat flour tortillas or taco shells. Vegetables Lettuce. Spinach. Peas. Beets. Cauliflower. Cabbage. Broccoli. Carrots. Tomatoes. Squash. Eggplant. Herbs. Peppers. Onions. Cucumbers. [place] sprouts. Fruits Berries. Bananas. Apples. Oranges. Grapes. Papaya. Dayday. Pomegranate. Kiwi. Grapefruit. Cherries. Meats and other protein foods Seafood. Poultry without skin. Lean cuts of pork and beef. Tofu. Eggs. Nuts. Beans. Dairy Low-fat or fat-free dairy products, such as yogurt, cottage cheese, and cheese. Beverages Water. Tea. Coffee. Sugar-free or diet soda. [place] water. Lowfat or no-fat milk. Milk alternatives, such as soy or almond milk. Fats and oils [place] oil. Canola oil. Sweet [place] oil. Grapeseed oil. Avocado. Walnuts. Sweets and desserts Sugar-free or low-fat pudding. Sugar-free or low-fat ice cream and other frozen treats. Seasoning and other foods Herbs. Sodium-free spices. Mustard. Relish. Low-fat, low-sugar ketchup. Low-fat, low-sugar barbecue sauce. Low-fat or fat-free mayonnaise. What foods are not recommended? The items listed below may not be a complete list. Talk with your dietitian about what dietary choices are best for you. Grains Refined white flour and flour products, such as bread, pasta, snack foods, and cereals. Vegetables Canned vegetables. Frozen vegetables with butter or cream sauce. Fruits Fruits canned with syrup. Meats and other protein foods Fatty cuts of meat. Poultry with skin. Breaded or fried meat. Processed meats. Dairy Full-fat yogurt, cheese, or milk. Beverages Sweetened drinks, such as sweet iced tea and soda. Fats and oils Butter. Lard. Ghee. Sweets and desserts Baked goods, such as cake, cupcakes, pastries, cookies, and cheesecake. Seasoning and other foods Spice mixes with added salt. Ketchup. Barbecue sauce. Mayonnaise. Summary To prevent diabetes from developing, you may need to make diet and other lifestyle changes to help control blood sugar, improve cholesterol levels, and manage your blood pressure. Set weight loss goals with the help of your health care team. It is recommended that most people with prediabetes lose 7 percent of their current body weight. Consider following a Mediterranean diet that includes plenty of fresh fruits and vegetables, whole grains, beans, nuts, seeds, fish, lean meat, low-fat dairy, and healthy oils. This information is not intended to replace advice given to you by your health care provider. Make sure you discuss any questions you have with your health care provider. Document Released: 08/26/2015 Document Revised: 08/03/2019 Document Reviewed: 06/15/2017 [employer] Patient Education 2020 [employer] (more content not included)... [facility] 06-05-2022 Note ORIGINAL EXAMINATION: TWO XRAY VIEWS OF THE CHEST 06/05/2022 6:43 am COMPARISON: Chest x-ray on 06/04/2022 HISTORY: ORDERING SYSTEM PROVIDED HISTORY: Reason for Exam: abnormal lung sounds FINDINGS: Left subclavian central venous catheter tip is in the superior vena cava. Mediastinal drain has been removed. Small pneumomediastinum remains. There is a small amount of pleural fluid bilaterally with mild bilateral lower lobe atelectasis. There is no visible pneumothorax. There is no pulmonary edema. IMPRESSION: Small postoperative pneumomediastinum is still present. Small bilateral pleural effusions with mild bilateral lower lobe atelectasis. Interpreted by: James Barron MD Preliminary Report By: James Barron MD Electronically signed By James Barron MD Dictated Date: 06/05/2022 6:46:01 AM Prelim Date: 06/05/2022 6:47:51 AM Sign Date: 06/05/2022 6:47:51 AM Ordering Provider: [facility] 06-05-2022 Note ORIGINAL EXAMINATION: TWO XRAY VIEWS OF THE CHEST 06/05/2022 6:43 am COMPARISON: Chest x-ray on 06/04/2022 HISTORY: ORDERING SYSTEM PROVIDED HISTORY: Reason for Exam: abnormal lung sounds FINDINGS: Left subclavian central venous catheter tip is in the superior vena cava. Mediastinal drain has been removed. Small pneumomediastinum remains. There is a small amount of pleural fluid bilaterally with mild bilateral lower lobe atelectasis. There is no visible pneumothorax. There is no pulmonary edema. IMPRESSION: Small postoperative pneumomediastinum is still present. Small bilateral pleural effusions with mild bilateral lower lobe atelectasis. Interpreted by: James Barron MD Preliminary Report By: James Barron MD Electronically signed By James Barron MD Dictated Date: 06/05/2022 6:46:01 AM Prelim Date: 06/05/2022 6:47:51 AM Sign Date: 06/05/2022 6:47:51 AM Ordering Provider: [facility] 06-04-2022 Anesthesiology Consult note Patient: RAAD PERRY Age: 52 years Sex: Female : 1970 Associated Diagnoses: None Author: MARIAH BECKER DO Assessment Postanesthesia assessment Vitals: Vital signs from flowsheet : Vital Signs 06/04/2022 11:47 EST Temperature Oral 36.9 DegC Heart Rate Monitored 80 bpm Respiratory Rate 18 br/min Systolic Blood Pressure Non-Invasive 119 mmHg Diastolic Blood Pressure Non-Invasive 62 mmHg Mean Arterial Pressure (NBP) 78 mmHg Reason For Taking VItal Signs Routine 06/04/2022 10:09 EST Apical Heart Rate 92 bpm 06/04/2022 8:34 EST Apical Heart Rate 97 bpm 06/04/2022 7:59 EST Temperature Oral 37.0 DegC Heart Rate Monitored 95 bpm Respiratory Rate 20 br/min Systolic Blood Pressure Non-Invasive 131 mmHg Diastolic Blood Pressure Non-Invasive 71 mmHg Mean Arterial Pressure (NBP) 89 mmHg Reason For Taking VItal Signs Routine 06/04/2022 3:45 EST Temperature Oral 37.1 DegC Heart Rate Monitored 89 bpm Respiratory Rate 18 br/min Systolic Blood Pressure Non-Invasive 129 mmHg Diastolic Blood Pressure Non-Invasive 74 mmHg Mean Arterial Pressure (NBP) 88 mmHg Reason For Taking VItal Signs 15 min post start of transfusion 06/04/2022 1:02 EST Heart Rate Monitored 89 bpm 06/03/2022 22:55 EST Respiratory Rate 18 br/min 06/03/2022 22:54 EST Temperature Oral 37.1 DegC Heart Rate Monitored 88 bpm Respiratory Rate 18 br/min Systolic Blood Pressure Non-Invasive 126 mmHg Diastolic Blood Pressure Non-Invasive 67 mmHg Mean Arterial Pressure (NBP) 84 mmHg Reason For Taking VItal Signs Routine 06/03/2022 19:30 EST Temperature Oral 37.2 DegC Respiratory Rate 16 br/min Systolic Blood Pressure Non-Invasive 128 mmHg Diastolic Blood Pressure Non-Invasive 72 mmHg Mean Arterial Pressure (NBP) 87 mmHg Reason For Taking VItal Signs Routine 06/03/2022 18:56 EST Apical Heart Rate 90 bpm 06/03/2022 18:54 EST Systolic Blood Pressure Non-Invasive 124 mmHg Diastolic Blood Pressure Non-Invasive 62 mmHg 06/03/2022 15:55 EST Heart Rate Monitored 87 bpm 06/03/2022 15:19 EST Temperature Oral 36.9 DegC Systolic Blood Pressure Non-Invasive 131 mmHg Diastolic Blood Pressure Non-Invasive 64 mmHg Mean Arterial Pressure (NBP) 83 mmHg Reason For Taking VItal Signs Routine 06/03/2022 14:23 EST Peripheral Pulse Rate 88 bpm Peripheral Pulse Rate 83 bpm 06/03/2022 11:40 EST Temperature Oral 36.9 DegC Heart Rate Monitored 83 bpm Respiratory Rate 16 br/min Systolic Blood Pressure Invasive 124 mmHg Systolic Blood Pressure Invasive 110 mmHg Diastolic Blood Pressure Invasive 61 mmHg Diastolic Blood Pressure Invasive 56 mmHg LOW Mean Arterial Pressure (Line) 81 mmHg Mean Arterial Pressure (Line) 75 mmHg Reason For Taking VItal Signs Routine 06/03/2022 10:55 EST Heart Rate Monitored 84 bpm Systolic Blood Pressure Invasive 121 mmHg Diastolic Blood Pressure Invasive 60 mmHg Mean Arterial Pressure (Line) 80 mmHg 06/03/2022 10:46 EST Heart Rate Monitored 86 bpm Systolic Blood Pressure Invasive 114 mmHg Diastolic Blood Pressure Invasive 59 mmHg LOW Mean Arterial Pressure (Line) 77 mmHg 06/03/2022 10:02 EST Heart Rate Monitored 83 bpm Systolic Blood Pressure Invasive 117 mmHg Diastolic Blood Pressure Invasive 58 mmHg LOW Mean Arterial Pressure (Line) 77 mmHg 06/03/2022 9:47 EST Heart Rate Monitored 87 bpm Systolic Blood Pressure Invasive 122 mmHg Diastolic Blood Pressure Invasive 60 mmHg Mean Arterial Pressure (Line) 80 mmHg 06/03/2022 9:35 EST Heart Rate Monitored 91 bpm Systolic Blood Pressure Invasive 113 mmHg Diastolic Blood Pressure Invasive 59 mmHg LOW Mean Arterial Pressure (Line) 76 mmHg 06/03/2022 9:20 EST Heart Rate Monitored 89 bpm Systolic Blood Pressure Invasive 107 mmHg Diastolic Blood Pressure Invasive 57 mmHg LOW Mean Arterial Pressure (Line) 72 mmHg 06/03/2022 8:59 EST Heart Rate Monitored 87 bpm Respiratory Rate 15 br/min Systolic Blood Pressure Invasive 120 mmHg Diastolic Blood Pressure Invasive 56 mmHg LOW Mean Arterial Pressure (Line) 78 mmHg Reason For Taking VItal Signs Routine 06/03/2022 8:51 EST Heart Rate Monitored 87 bpm Systolic Blood Pressure Invasive 110 mmHg Diastolic Blood Pressure Invasive 54 mmHg LOW Mean Arterial Pressure (Line) 72 mmHg 06/03/2022 8:46 EST Heart Rate Monitored 86 bpm Systolic Blood Pressure Invasive 121 mmHg Diastolic Blood Pressure Invasive 56 mmHg LOW Mean Arterial Pressure (Line) 78 mmHg 06/03/2022 8:20 EST Heart Rate Monitored 86 bpm Systolic Blood Pressure Invasive 110 mmHg Diastolic Blood Pressure Invasive 51 mmHg LOW Mean Arterial Pressure (Line) 71 mmHg 06/03/2022 8:00 EST Heart Rate Monitored 85 bpm Systolic Blood Pressure Invasive 104 mmHg Diastolic Blood Pressure Invasive 50 mmHg Mean Arterial Pressure (Line) 67 mmHg 06/03/2022 7:43 EST Heart Rate Monitored 86 bpm Systolic Blood Pressure Invasive 110 mmHg Diastolic Blood Pressure Invasive 52 mmHg LOW 06/03/2022 7:29 EST Heart Rate Monitored 84 bpm Systolic Blood Pressure Invasive 110 mmHg Diastolic Blood Pressure Invasive 52 mmHg LOW Mean Arterial Pressure (Line) 71 mmHg 06/03/2022 7:15 EST Temperature Intravascular 37.3 DegC Heart Rate Monitored 87 bpm Respiratory Rate 16 br/min Systolic Blood Pressure Invasive 107 mmHg Diastolic Blood Pressure Invasive 52 mmHg LOW Mean Arterial Pressure (Line) 70 mmHg Reason For Taking VItal Signs Routine 06/03/2022 7:01 EST Heart Rate Monitored 85 bpm Systolic Blood Pressure Invasive 113 mmHg Diastolic Blood Pressure Invasive 54 mmHg LOW Mean Arterial Pressure (Line) 73 mmHg 06/03/2022 6:46 EST Heart Rate Monitored 86 bpm Systolic Blood Pressure Invasive 110 mmHg Diastolic Blood Pressure Invasive 53 mmHg LOW Mean Arterial Pressure (Line) 71 mmHg 06/03/2022 6:30 EST Heart Rate Monitored 86 bpm Systolic Blood Pressure Invasive 115 mmHg Diastolic Blood Pressure Invasive 55 mmHg LOW Mean Arterial Pressure (Line) 74 mmHg 06/03/2022 6:15 EST Heart Rate Monitored 83 bpm Systolic Blood Pressure Invasive 103 mmHg Diastolic Blood Pressure Invasive 50 mmHg Mean Arterial Pressure (Line) 66 mmHg 06/03/2022 6:04 EST Heart Rate Monitored 83 bpm Systolic Blood Pressure Invasive 102 mmHg Diastolic Blood Pressure Invasive 50 mmHg Mean Arterial Pressure (Line) 67 mmHg 06/03/2022 5:45 EST Heart Rate Monitored 83 bpm Systolic Blood Pressure Invasive 104 mmHg Diastolic Blood Pressure Invasive 51 mmHg LOW Mean Arterial Pressure (Line) 67 mmHg 06/03/2022 5:27 EST Heart Rate Monitored 84 bpm Respiratory Rate 16 br/min Systolic Blood Pressure Invasive 110 mmHg Diastolic Blood Pressure Invasive 53 mmHg LOW Mean Arterial Pressure (Line) 72 mmHg Reason For Taking VItal Signs Routine 06/03/2022 5:15 EST Heart Rate Monitored 81 bpm Systolic Blood Pressure Invasive 107 mmHg Diastolic Blood Pressure Invasive 52 mmHg LOW Mean Arterial Pressure (Line) 70 mmHg 06/03/2022 5:00 EST Heart Rate Monitored 83 bpm Systolic Blood Pressure Invasive 96 mmHg Diastolic Blood Pressure Invasive 48 mmHg Mean Arterial Pressure (Line) 63 mmHg 06/03/2022 4:45 EST Heart Rate Monitored 85 bpm Systolic Blood Pressure Invasive 113 mmHg Diastolic Blood Pressure Invasive 53 mmHg LOW Mean Arterial Pressure (Line) 72 mmHg 06/03/2022 4:30 EST Heart Rate Monitored 85 bpm Systolic Blood Pressure Invasive 112 mmHg Diastolic Blood Pressure Invasive 54 mmHg LOW Mean Arterial Pressure (Line) 72 mmHg 06/03/2022 4:15 EST Heart Rate Monitored 81 bpm Systolic Blood Pressure Invasive 108 mmHg Diastolic Blood Pressure Invasive 51 mmHg LOW Mean Arterial Pressure (Line) 69 mmHg 06/03/2022 4:00 EST Heart Rate Monitored 85 bpm Systolic Blood Pressure Invasive 106 mmHg Diastolic Blood Pressure Invasive 51 mmHg LOW Mean Arterial Pressure (Line) 69 mmHg 06/03/2022 3:45 EST Heart Rate Monitored 86 bpm Systolic Blood Pressure Invasive 106 mmHg Diastolic Blood Pressure Invasive 52 mmHg LOW Mean Arterial Pressure (Line) 70 mmHg 06/03/2022 3:30 EST Temperature Intravascular 37.4 DegC Heart Rate Monitored 87 bpm Respiratory Rate 16 br/min Systolic Blood Pressure Invasive 100 mmHg Diastolic Blood Pressure Invasive 51 mmHg LOW Mean Arterial Pressure (Line) 66 mmHg Reason For Taking VItal Signs Routine 06/03/2022 3:15 EST Heart Rate Monitored 92 bpm Systolic Blood Pressure Invasive 114 mmHg Diastolic Blood Pressure Invasive 57 mmHg LOW Mean Arterial Pressure (Line) 75 mmHg 06/03/2022 3:05 EST Heart Rate Monitored 92 bpm Systolic Blood Pressure Invasive 108 mmHg Diastolic Blood Pressure Invasive 54 mmHg LOW Mean Arterial Pressure (Line) 71 mmHg 06/03/2022 2:10 EST Temperature Intravascular 37.4 DegC Heart Rate Monitored 86 bpm Respiratory Rate 18 br/min Systolic Blood Pressure Invasive 100 mmHg Diastolic Blood Pressure Invasive 50 mmHg Mean Arterial Pressure (Line) 65 mmHg Reason For Taking VItal Signs Routine 06/03/2022 1:30 EST Heart Rate Monitored 95 bpm Systolic Blood Pressure Invasive 112 mmHg Diastolic Blood Pressure Invasive 60 mmHg Mean Arterial Pressure (Line) 77 mmHg 06/03/2022 1:00 EST Heart Rate Monitored 90 bpm Systolic Blood Pressure Invasive 98 mmHg Diastolic Blood Pressure Invasive 56 mmHg LOW Mean Arterial Pressure (Line) 70 mmHg 06/03/2022 0:30 EST Temperature Intravascular 37.3 DegC Heart Rate Monitored 92 bpm Respiratory Rate 18 br/min Systolic Blood Pressure Invasive 110 mmHg Diastolic Blood Pressure Invasive 62 mmHg Mean Arterial Pressure (Line) 79 mmHg Reason For Taking VItal Signs Routine . Mental status: at preoperative baseline, alert & oriented x 4. Respiratory function: lungs are clear to auscultation, respirations are non-labored, breath sounds are equal. Respiratory support: oxygen 92% RA. CV function: Normal rate, Regular rhythm, No murmur. Cardiovascular support: none. Pain: Post op control No intervention needed. Nausea status: denies nausea. Postoperative hydration status: within normal limits. Notes: Awake alert no recall voice intact . Digitally Signed by MARIAH BECKER DO on 06/04/2022 02:49 PM [facility] 06-04-2022 Endocrinology Progress note Date of Service 06/04/22 Chief Complaint PreDM; postop hyperglycemia Subjective Chart reviewed. Overnight events and plan of care d/w patient. Patient denies new complaints. Appetite is is reported as fair, only 25% intake this morning at breakfast.. Discussed with her plans to titrate off insulin today. She remains agreeable to metformin if needed, preferences for lifestyle changes alone if feasible. We will follow her trends over the next day or so to make final recommendation Cardiothoracic surgery note reviewed from today, patient's chest tubes have been discontinued. They have added Lasix and are titrating other medications. They plan for labs in the morning which have already been ordered. Objective Vitals and Measurements T: 36.9 C (Oral) TMIN: 36.9 C (Oral) TMAX: 37.2 C (Oral) HR: 80(Monitored) RR: 18 BP: 119/62 SpO2: 92% WT: 115 kg Intake and Output 7AM Yesterday to 7AM Today Intake and Output (Last 24 hours) Intake Administration Information 157.06 Oral Intake 630.00 Output Chest Tube Output: 230.00 Urine Voided 900.00 Urinary Catheter Output: 300.00 Stool Count 0.00 Total Summary Total Intake 787.06 Total Output 1430.00 Fluid Balance -642.94 Physical Exam Alert, no acute distress Respirations even and unlabored Answers questions appropriately. Mood and affect normal. Weight Current Weight Dosing Weight: 111.8 kg (05/28/22) Current Weight: 115 kg (06/04/22) Current Weight: 115 kg (06/03/22) Medications Medications (31) Active Scheduled: (13) amiodarone 200 mg tablet 400 mg 2 tab(s), Oral, BIDM amiodarone 200 mg tablet 200 mg 1 tab(s), Oral, qDayM aspirin 81 mg EC 81 mg 1 tab(s), Oral, qDayM docusate calcium 240 mg Capsule 240 mg 1 cap(s), Oral, BID enoxaparin 40 mg/ 0.4mL syringe 40 mg 0.4 mL, Subcutaneous, qDay furosemide 20 mg/2 mL vial 20 mg 2 mL, IV Push, q8h insulin lispro 100 units/mL Soln (3 mL) Give 0-10 units/dose, Subcutaneous, achs metoprolol tartrate 25 mg tablet 25 mg 1 tab(s), Oral, BIDM multivitamin (Chromagen Forte) with iron Vitamin B Complex with C, Folic Acid and Iron tablet 1 tab(s), Oral, qDay mupirocin 2% Ointment 22 Gram(s) tube 1 james, Nostril, each, q12h pantoprazole 40 mg EC tablet 40 mg 1 tab(s), Oral, qDayAC potassium chloride 20 mEq ER tablet 20 mEq 1 tab(s), Oral, BIDM warfarin 5 mg tablet 5 mg 1 tab(s), Oral, qDay Continuous: (2) amiodarone 450 mg [0.5 mg/min] + sodium chloride SILVESTRE 250 mL 250 mL, Intravenous, 16.67 mL/hr insulin regular 100 unit(s) + NS Premix Diluent 100 mL 100 mL, Intravenous PRN: (16) acetaminophen 325 mg Tablet 650 mg 2 tab(s), Oral, q4h Al hydrox/Mg hydrox/simethicone 200-200-20 mg/5 mL Susp UD 30 mL, Oral, q2h bisacodyl 10 mg Suppository 10 mg 1 supp, Rectal, qDay bismuth subsalicylate 262 mg/15 mL 240 mL 30 mL, Oral, AsDirected dextrose 50% Solution Disp syringe 50 mL 25 g 50 mL, IV Push, AsDirected dextrose 50% Solution Disp syringe 50 mL 12.5 g 25 mL, IV Push, AsDirected glucagon recombinant 1 mg 1 mg 1 mL, Intramuscular, AsDirected magnesium hydroxide 8% Suspension 30 mL UD 30 mL, Oral, qDay ondansetron 2 mg/ 1 mL 2 mL INJ 4 mg 2 mL, IV Push, q4h oxycodone 5 mg tablet (immediate release) 5 mg 1 tab(s), Oral, q4h oxycodone 5 mg tablet (immediate release) 10 mg 2 tab(s), Oral, q4h phenol topical 1.4% Spr 1 spray(s), Topical, q1h polyethylene glycol 3350 - UD packet 17 gram(s) 15 mL, Oral, qDay potassium chloride (PMX) 20 mEq 50 mL, IV Piggyback, AsDirected potassium chloride (PMX) 15 mEq 50 mL, IV Piggyback, AsDirected potassium chloride (PMX) 10 mEq 50 mL, IV Piggyback, AsDirected Lab Results 06/04 04:59 WBC: 13.1 H Hgb: 9.7 L Hct: 28.7 L Platelet: 134 L Neutrophil %: 81.1 H Glucose Level: 110 Sodium Level: 138 Potassium Level: 4.3 BUN: 13.0 Creatinine Lvl (s): 0.76 06/03 13:53 Potassium Level: 4.2 06/03 03:37 WBC: 13.4 H Hgb: 9.7 L Hct: 28.6 L Platelet: 146 L Neutrophil %: 89.2 H Glucose Level: 117 H Sodium Level: 143 Potassium Level: 4.2 BUN: 12.0 Creatinine Lvl (s): 0.84 Group Detail Date Value w/Units Flags Normal Range Normal Reference Text Comment Ind Glucose Testing Blood Glucose, Capillary 06/04/2022 11:47:00 EST 117 mg/dL HI 70-110 Glucose Testing Blood Glucose, Capillary 06/04/2022 07:59:00 EST 111 mg/dL HI 70-110 Glucose Testing Glucose Level 06/04/2022 04:59:00 EST 110 mg/dL 70-110 Glucose Testing Blood Glucose, Capillary 06/04/2022 02:01:00 EST 119 mg/dL HI 70-110 Glucose Testing Blood Glucose, Capillary 06/03/2022 21:30:00 EST 127 mg/dL HI 70-110 Glucose Testing Blood Glucose, Capillary 06/03/2022 15:51:00 EST 108 mg/dL 70-110 Glucose Testing Blood Glucose, Capillary 06/03/2022 13:57:00 EST 107 mg/dL 70-110 EKG Electrocardiogram - Ordered -- 06/03/22 13:05:00 EST, On the 4th post op day Assessment/Plan 1. CAD (coronary artery disease) EF 55-60%, s/p CABG x2 with Vein grafts 06/02/22 2. Aortic stenosis s/p AVR 06/02/22 3. Pre-diabetes Hgb A1c 6.1% 4. HTN (hypertension) 5. Hyperlipemia 6. Arthritis 7. Tobacco use 8. Family history of premature CAD 9. Obesity (BMI 30-39.9) 10. Carotid stenosis, left Orders: insulin lispro (HumaLOG), Start: 06/04/22 8:00:00 EST, Give 0-10 units/dose, Subcutaneous, achs, 06/04/22 7:48:00 EST Blood Glucose Monitoring POC 52 year-old female with past medical history of hypertension, hyperlipidemia, arthritis, tobacco abuse and a family history of premature heart disease with her father having an HI at the age of 46 and brother undergoing CABG at the age of 43. She presented with complaints of midsternal chest pressure that was related to her hypertension, dyspnea with physical exertion. She was evaluated by her primary care physician, was started on lisinopril for blood pressure management and later switched to losartan. She had an echocardiogram in March that demonstrated normal systolic LV function with an EF of 55 to 60% was possible bicuspid aortic valve with severe aortic valve stenosis and mild AI. She was referred to Dr. Celeste for further evaluation. She presented on 05/28/2022 for a heart catheterization which showed 60% stenosis of her proximal LAD and 90% stenosis of the mid LAD, 80% stenosis of the RCA and a proximal 50% lesion in the left circumflex. We were consulted for surgical evaluation for CABG and AVR. Patient was evaluated by Dr. Collazo, preoperative testing was obtained. On 06/02/2022 she had a CABG x2 and AVR. Endocrinology was consulted for glucose management New prediabetes dx per hba1c 6.1 this admission. She follows with primary care in the outpatient setting but and never been diagnosed with hyperglycemia or prediabetes. Admits to high home CHO intake and vocalizes understanding of need to change lifestyle habits. Obese w/ BMI 36. Reinforced importance of therapeutic lifestyle changes (ADA diet, daily exercise, and weight reduction). Discussed benefits of metformin with the same. hx hyperlipidemia; lipid panel reviewed from this admission, total cholesterol 152, triglycerides 185, HDL 34 and LDL 81. On rosuvastatin as an outpatient, so the same should be reintroduced when appropriate. TSH was already screened, within normal limits 3.945. Last 24 hours: Transitioned off insulin drip protocol with Lantus 25 units twice daily and a Humalog 0-10 correctional scale achs2. OT being checked achs2 as well. Glucose trends reviewed from overnight, stable with use of insulin. 110 per BMP. 111 fasting this morning. 117 this afternoon. Renal function has been reviewed, GFR greater than 60 as per BMP ordered by primary team Consults have already been placed for diabetic education as well as dietitian for teaching on new prediabetes diagnosis. -->For current glycemic management DC scheduled Lantus. Adjust Humalog correction to achs. Adjust One Touch to achs monitoring. -->Follow glucose trends over the next 24 hours. Pending the same as well as clinical status metformin can be considered. Not a candidate at this point with IV diuresis I will be off service this weekend. Will plan to follow up with the patient upon returning next week if still inpatient at that time Digitally Signed by JOSEPH PRICE on 06/04/2022 02:40 PM [facility] 06-04-2022 Cardiology Progre ss note Date of Service 06/01/2022 Chief Complaint Exertional shortness of breath Subjective No significant overnight events. Patient remains chest pain-free. Objective Vitals and Measurements T: 36.6 C (Oral) TMIN: 36.2 C (Oral) TMAX: 36.6 C (Oral) HR: 81(Monitored) RR: 16 BP: 134/69 SpO2: 95% Intake and Output 7AM Yesterday to 7AM Today Intake and Output (Last 24 hours) Intake Oral Intake 3200.00 Output Urine Voided 2700.00 Stool Count 2.00 Total Summary Total Intake 3200.00 Total Output 2700.00 Fluid Balance 500.00 Physical Exam General Appearance: in no acute distress. Alert. EENT: No thyroid disease. ocular movements intact Cardiac: RRR. S1 and S2. Systolic murmur noted Lungs: Clear breath sounds. No wheeze or crackles noted. Abdomen: soft. non tender. bowel sounds audible Neurological: alert and oriented. Skin: warm. dry Weight Current Weight Dosing Weight: 111.8 kg (05/28/22) Current Weight: 111.3 kg (05/30/22) Current Weight: 111.6 kg (05/29/22) Medications Medications (11) Active Scheduled: (9) aspirin 81 mg EC 81 mg 1 tab(s), Oral, qDay atorvastatin 40 mg tablet 40 mg 1 tab(s), Oral, qHS heparin 5,000 units/mL (1 mL) vial 5,000 unit(s) 1 mL, Subcutaneous, q8h losartan 50 mg tablet 50 mg 1 tab(s), Oral, qDay multivitamin tablet 1 tab(s), Oral, Daily mupirocin 2% Ointment 22 Gram(s) tube 1 james, Nostril, each, BID No metformin for 48 hrs post contrast 1 EA, Miscellaneous, Unscheduled No prasugrel (Effient) 7 days before surgery 1 EA, Miscellaneous, Daily NO vitamin E, clopidogrel (Plavix) 5 days before surgery 1 EA, Miscellaneous, Daily Continuous: (0) PRN: (2) albuterol - ipratropium 2.5 mg-0.5 mg/3 mL Inhal Dana UD 3 mL, Inhalation, q4hRT melatonin 3 mg tablet 3 mg 1 tab(s), Oral, qHS Lab Results No 36 Hour Lab Data EKG No qualifying data available. Assessment/Plan 1. CAD (coronary artery disease) EF 55-60% 2. Aortic stenosis 3. Pre-diabetes Hgb A1c 6.1% 4. HTN (hypertension) 5. Hyperlipemia 6. Arthritis 7. Tobacco use 8. Family history of premature CAD 9. Obesity (BMI 30-39.9) 10. Carotid stenosis, left Multivessel coronary artery disease Moderate to severe aortic stenosis Hypertension Hyperlipidemia Tobacco use Arthritis This is a 52-year-old morbidly obese female who was recently diagnosed with moderate to severe aortic stenosis noted on echocardiogram. This was initially done for exertional shortness of breath. She presents to the hospital for elective left heart catheterization. Heart catheterization showed severe coronary artery disease in LAD and RCA. ANDRE also shows moderate to severe aortic stenosis Continue aspirin and statin and metoprolol. Patient scheduled for CABG and valve replacement tomorrow. Continue losartan for hypertension. Digitally Signed by MICHELLE ESPINOSA MD on 06/01/2022 01:47 PM [facility] 06-04-2022 Note Date of Service 06/04/2022 postop day #2 Chief Complaint This is a 52 year-old female with past medical history of hypertension, hyperlipidemia, arthritis, tobacco abuse and a family history of premature heart disease who presented with complaints of midsternal chest pressure and shortness of breath with exertion. She was evaluated by her primary care physician, was started on lisinopril for blood pressure management and later switched to losartan. She had an echocardiogram in March that demonstrated normal systolic LV function with an EF of 55 to 60% was possible bicuspid aortic valve with severe aortic valve stenosis and mild AI. She was referred to Dr. Celeste for further evaluation. She presented on 05/28/2022 for a heart catheterization which showed 60% stenosis of her proximal LAD and 90% stenosis of the mid LAD, 80% stenosis of the RCA and a proximal 50% lesion in the left circumflex. We were consulted for surgical evaluation for CABG and AVR. She required a CTA of the neck to further evaluate carotid stenosis that was noted on ultrasound. Left carotid was only 30% stenosis on the CTA of the neck. On 06/02/2022 she underwent a CABG x2 with vein grafts secondary to the LAD being highly calcified and small coronary artery and AVR. Had ventricular arrhythmias intraoperatively and was started on amiodarone. She was transferred to the CV SICU in stable condition, on the vent, amiodarone drip, epinephrine drip and a right IJ Meade-Mike catheter in place. She required nitroglycerin for blood pressure management after epinephrine was discontinued. She was extubated her operative day. Postop day #1. Nitroglycerin IV has been weaned off. Amiodarone 400 mg p.o. twice daily and then the drip will be discontinued today. Open inpatient endocrinology consulted for blood sugar management. Beta-hans started later in the day. Transfer to stepdown. Postop day #2. Chest tubes discontinued. Beta-hans titrated up. Lasix added. Start Coumadin. Subjective Currently resting in bed, no complaints offered Intake and Output 7AM Yesterday to 7AM Today Intake and Output (Last 24 hours) Intake Administration Information 157.06 Oral Intake 630.00 Output Chest Tube Output: 230.00 Urine Voided 900.00 Urinary Catheter Output: 300.00 Stool Count 0.00 Total Summary Total Intake 787.06 Total Output 1430.00 Fluid Balance -642.94 Physical Exam Lungs: Bilateral, clear, on room air, respirations easy regular nonlabored Heart: Regular S1-S2, monitor normal sinus rhythm Incision: Midsternal with shay open to air without drainage Abdomen: Soft, bowel sounds present, Neurological: Intact Extremities: Well perfused Discharge plan: Home with spouse and home health care Weight Current Weight Dosing Weight: 111.8 kg (05/28/22) Current Weight: 115 kg (06/04/22) Current Weight: 115 kg (06/03/22) Medications Medications (32) Active Scheduled: (14) amiodarone 200 mg tablet 400 mg 2 tab(s), Oral, BIDM amiodarone 200 mg tablet 200 mg 1 tab(s), Oral, qDayM aspirin 81 mg EC 81 mg 1 tab(s), Oral, qDayM docusate calcium 240 mg Capsule 240 mg 1 cap(s), Oral, BID enoxaparin 40 mg/ 0.4mL syringe 40 mg 0.4 mL, Subcutaneous, qDay furosemide 20 mg/2 mL vial 20 mg 2 mL, IV Push, q8h insulin lispro 100 units/mL Soln (3 mL) Give 0-10 units/dose, Subcutaneous, achs metoprolol tartrate 12.5 mg ( HALF-TAB ) 12.5 mg 1 EA, Oral, now metoprolol tartrate 25 mg tablet 25 mg 1 tab(s), Oral, BIDM multivitamin (Chromagen Forte) with iron Vitamin B Complex with C, Folic Acid and Iron tablet 1 tab(s), Oral, qDay mupirocin 2% Ointment 22 Gram(s) tube 1 james, Nostril, each, q12h pantoprazole 40 mg EC tablet 40 mg 1 tab(s), Oral, qDayAC potassium chloride 20 mEq ER tablet 20 mEq 1 tab(s), Oral, BIDM warfarin 5 mg tablet 5 mg 1 tab(s), Oral, qDay Continuous: (2) amiodarone 450 mg [0.5 mg/min] + sodium chloride SILVESTRE 250 mL 250 mL, Intravenous, 16.67 mL/hr insulin regular 100 unit(s) + NS Premix Diluent 100 mL 100 mL, Intravenous PRN: (16) acetaminophen 325 mg Tablet 650 mg 2 tab(s), Oral, q4h Al hydrox/Mg hydrox/simethicone 200-200-20 mg/5 mL Susp UD 30 mL, Oral, q2h bisacodyl 10 mg Suppository 10 mg 1 supp, Rectal, qDay bismuth subsalicylate 262 mg/15 mL 240 mL 30 mL, Oral, AsDirected dextrose 50% Solution Disp syringe 50 mL 25 g 50 mL, IV Push, AsDirected dextrose 50% Solution Disp syringe 50 mL 12.5 g 25 mL, IV Push, AsDirected glucagon recombinant 1 mg 1 mg 1 mL, Intramuscular, AsDirected magnesium hydroxide 8% Suspension 30 mL UD 30 mL, Oral, qDay ondansetron 2 mg/ 1 mL 2 mL INJ 4 mg 2 mL, IV Push, q4h oxycodone 5 mg tablet (immediate release) 5 mg 1 tab(s), Oral, q4h oxycodone 5 mg tablet (immediate release) 10 mg 2 tab(s), Oral, q4h phenol topical 1.4% Spr 1 spray(s), Topical, q1h polyethylene glycol 3350 - UD packet 17 gram(s) 15 mL, Oral, qDay potassium chloride (PMX) 20 mEq 50 mL, IV Piggyback, AsDirected potassium chloride (PMX) 15 mEq 50 mL, IV Piggyback, AsDirected potassium chloride (PMX) 10 mEq 50 mL, IV Piggyback, AsDirected Lab Results 06/04 04:59 WBC: 13.1 H Hgb: 9.7 L Hct: 28.7 L Platelet: 134 L Neutrophil %: 81.1 H Glucose Level: 110 Sodium Level: 138 Potassium Level: 4.3 BUN: 13.0 Creatinine Lvl (s): 0.76 06/03 13:53 Potassium Level: 4.2 06/03 03:37 WBC: 13.4 H Hgb: 9.7 L Hct: 28.6 L Platelet: 146 L Neutrophil %: 89.2 H Glucose Level: 117 H Sodium Level: 143 Potassium Level: 4.2 BUN: 12.0 Creatinine Lvl (s): 0.84 06/02 21:33 Potassium Level: 4.6 Imaging Results and Diagnostics (06/04/2022 06:15 EST XR Chest 2 Views) ORIGINAL EXAMINATION: TWO XRAY VIEWS OF THE CHEST 06/04/2022 6:15 am COMPARISON: Chest radiograph 06/03/2022 HISTORY: ORDERING SYSTEM PROVIDED HISTORY: Reason for Exam: Pleural effusions FINDINGS: Left subclavian central venous catheter, mediastinal drain, valve replacement, and post sternotomy changes. Meade-Mike catheter has been removed. Cardiac silhouette is stable given differences in positioning. Decreased vascular congestion. Trace left pleural effusion. No appreciable pneumothorax. Trace pneumopericardium is likely postsurgical. IMPRESSION: Removal of Meade-Mike catheter. Decreased vascular congestion and decreased left pleural effusio [1] Assessment/Plan 1. CAD (coronary artery disease) EF 55-60%, s/p CABG x2 with Vein grafts 06/02/22 ASA, Lopressor, amiodarone, rosuvastatin at home 2. Aortic stenosis s/p AVR 06/02/22 ASA Coumadin started today 3. Pre-diabetes Hgb A1c 6.1% Glucose 110 119 [place] inpatient endocrinology following 4. HTN (hypertension) Blood pressure 131/71-129/74 Metoprolol increased to 25 mg twice daily 5. Hyperlipemia Reassess LFTs prior to discharge On rosuvastatin at home 6. Arthritis 7. Tobacco use Smoking cessation counseling She did quit smoking prior to hospitalization 8. Family history of premature CAD 9. Obesity (BMI 30-39.9) 10. Carotid stenosis, left No neurodeficit noted Preoperative CTA of the neck showed 30% stenosis in the left internal carotid artery Discontinue chest tubes Lasix 20 mg IV every 8 hours X 1 day P.o. potassium supplement added 4 PM potassium Start Coumadin today Ambulate BMP, CBC, chest x-ray in a.m. Patient seen and discussed with Dr. Tejeda [1] XR Chest 2 Views; JAMES BARRON MD 06/04/2022 06:15 EST Digitally Signed by NANCY HERNANDEZ on 06/04/2022 09:17 AM [facility] 06-04-2022 Note Date of Service 06/04/2022 Left temporary ventricular pacemaker wire removed without problems Digitally Signed by NANCY HERNANDEZ on 06/04/2022 08:53 AM [facility] 06-04-2022 Note ORIGINAL EXAMINATION: TWO XRAY VIEWS OF THE CHEST 06/04/2022 6:15 am COMPARISON: Chest radiograph 06/03/2022 HISTORY: ORDERING SYSTEM PROVIDED HISTORY: Reason for Exam: Pleural effusions FINDINGS: Left subclavian central venous catheter, mediastinal drain, valve replacement, and post sternotomy changes. Meade-Mike catheter has been removed. Cardiac silhouette is stable given differences in positioning. Decreased vascular congestion. Trace left pleural effusion. No appreciable pneumothorax. Trace pneumopericardium is likely postsurgical. IMPRESSION: Removal of Meade-Mike catheter. Decreased vascular congestion and decreased left pleural effusion. I have personally reviewed the images of this examination, and agree with the resident's findings and interpretation. Interpreted by: James Barron MD Preliminary Report By: Claribel Cantu Electronically signed By James Barron MD Dictated Date: 06/04/2022 6:17:15 AM Prelim Date: 06/04/2022 6:20:00 AM Sign Date: 06/04/2022 6:21:53 AM Ordering Provider: [facility] 06-04-2022 Note ORIGINAL EXAMINATION: TWO XRAY VIEWS OF THE CHEST 06/04/2022 6:15 am COMPARISON: Chest radiograph 06/03/2022 HISTORY: ORDERING SYSTEM PROVIDED HISTORY: Reason for Exam: Pleural effusions FINDINGS: Left subclavian central venous catheter, mediastinal drain, valve replacement, and post sternotomy changes. Meade-Mike catheter has been removed. Cardiac silhouette is stable given differences in positioning. Decreased vascular congestion. Trace left pleural effusion. No appreciable pneumothorax. Trace pneumopericardium is likely postsurgical. IMPRESSION: Removal of Meade-Mike catheter. Decreased vascular congestion and decreased left pleural effusion. I have personally reviewed the images of this examination, and agree with the resident's findings and interpretation. Interpreted by: James Barron MD Preliminary Report By: Claribel Cantu Electronically signed By James Barron MD Dictated Date: 06/04/2022 6:17:15 AM Prelim Date: 06/04/2022 6:20:00 AM Sign Date: 06/04/2022 6:21:53 AM Ordering Provider: [facility] 06-03-2022 Endocrinology Consult note Date of Service 06/03/22 Reason for Consultation Hyperglycemia Management Referring Physician Krystle Valverde APRN History of Present Illness 52 year-old female with past medical history of hypertension, hyperlipidemia, arthritis, tobacco abuse and a family history of premature heart disease with her father having an HI at the age of 46 and brother undergoing CABG at the age of 43. She presented with complaints of midsternal chest pressure that was related to her hypertension, dyspnea with physical exertion. She was evaluated by her primary care physician, was started on lisinopril for blood pressure management and later switched to losartan. She had an echocardiogram in March that demonstrated normal systolic LV function with an EF of 55 to 60% was possible bicuspid aortic valve with severe aortic valve stenosis and mild AI. She was referred to Dr. Celeste for further evaluation. She presented on 05/28/2022 for a heart catheterization which showed 60% stenosis of her proximal LAD and 90% stenosis of the mid LAD, 80% stenosis of the RCA and a proximal 50% lesion in the left circumflex. We were consulted for surgical evaluation for CABG and AVR. Patient was evaluated by Dr. Collazo, preoperative testing was obtained. On 06/02/2022 she had a CABG x2 with vein grafts secondary to the LAD being highly calcified small coronary artery and she had an AVR. She had some ventricular arrhythmias intraoperatively and was started on amiodarone. She was transferred to the CV SICU in stable condition, on the vent, amiodarone drip, epinephrine drip and a right IJ Meade-Mike catheter in place. She progressed well on operative night. She required nitroglycerin for blood pressure management after epinephrine was discontinued. She was extubated in a timely manner and tolerated nasal cannula without difficulty. Postop day 1 she is actually doing her incentive spirometer and Acapella very well infrequently. She is currently off nitroglycerin drip as it was weaned for systolic blood pressure less than 130. She will start p.o. amiodarone 400 mg p.o. twice daily and then the drip will be discontinued today. Endocrinology consulted for Diabetes Management. New prediabetes per hba1c 6.1 this admission. She follows with primary care. Admits to eating a bread heavy diet previously. Current in CVSI on insulin drip. Denies recent weight changes, steroid use. Denies symptoms including polydipsia, polyuria, polyphagia. Denies blurred vision, neuropathy, CKD. Family history of diabetes with her mom. Review of Systems Negative for all systems except at mentioned in HPI Physical Exam Vitals and Measurements Weight Current Weight Dosing Weight: 111.8 kg (05/28/22) Current Weight: 115 kg (06/03/22) Current Weight: 111.3 kg (05/30/22) Alert, sitting in chair, no acute distress Respirations even and unlabored Answers questions appropriately. Mood and affect normal. Lab Results 06/03 13:53 Potassium Level: 4.2 06/03 03:37 WBC: 13.4 H Hgb: 9.7 L Hct: 28.6 L Platelet: 146 L Neutrophil %: 89.2 H Glucose Level: 117 H Sodium Level: 143 Potassium Level: 4.2 BUN: 12.0 Creatinine Lvl (s): 0.84 06/02 21:33 Potassium Level: 4.6 06/02 17:03 WBC: 28.3 H Hgb: 11.3 L Hct: 34.0 Platelet: 213 Glucose Level: 173 H Sodium Level: 142 Potassium Level: 4.5 BUN: 13.0 Creatinine Lvl (s): 0.97 Group Detail Date Value w/Units Flags Normal Range Normal Reference Text Comment Ind Glucose Testing Blood Glucose, Capillary 06/03/2022 13:57:00 EST 107 mg/dL 70-110 Glucose Testing Blood Glucose, Capillary 06/03/2022 12:04:00 EST 98 mg/dL 70-110 Glucose Testing Blood Glucose, Capillary 06/03/2022 10:51:00 EST 96 mg/dL 70-110 Glucose Testing Blood Glucose, Capillary 06/03/2022 08:59:00 EST 101 mg/dL 70-110 Glucose Testing Blood Glucose, Capillary 06/03/2022 07:15:00 EST 108 mg/dL 70-110 Glucose Testing Blood Glucose, Capillary 06/03/2022 04:53:00 EST 116 mg/dL HI 70-110 Glucose Testing Glucose Level 06/03/2022 03:37:00 EST 117 mg/dL HI 70-110 Glucose Testing Blood Glucose, Capillary 06/03/2022 02:52:00 EST 115 mg/dL HI 70-110 Glucose Testing Blood Glucose, Capillary 06/03/2022 02:04:00 EST 120 mg/dL HI 70-110 Glucose Testing Blood Glucose, Capillary 06/03/2022 00:47:00 EST 137 mg/dL HI 70-110 Glucose Testing Blood Glucose, Capillary 06/02/2022 22:18:00 EST 128 mg/dL HI 70-110 Glucose Testing Blood Glucose, Capillary 06/02/2022 21:13:00 EST 118 mg/dL HI 70-110 Glucose Testing Blood Glucose, Capillary 06/02/2022 20:00:00 EST 157 mg/dL HI 70-110 Glucose Testing Blood Glucose, Capillary 06/02/2022 18:52:00 EST 198 mg/dL HI 70-110 Glucose Testing Glucose Level 06/02/2022 17:03:00 EST 173 mg/dL HI 70-110 Assessment/Plan 1. CAD (coronary artery disease) EF 55-60%, s/p CABG x2 with Vein grafts 06/02/22 2. Aortic stenosis s/p AVR 06/02/22 3. Pre-diabetes Hgb A1c 6.1% 4. HTN (hypertension) 5. Hyperlipemia 6. Arthritis 7. Tobacco use 8. Family history of premature CAD 9. Obesity (BMI 30-39.9) 10. Carotid stenosis, left 11. Hyperglycemia 52 year-old female with past medical history of hypertension, hyperlipidemia, arthritis, tobacco abuse and a family history of premature heart disease with her father having an HI at the age of 46 and brother undergoing CABG at the age of 43. She presented with complaints of midsternal chest pressure that was related to her hypertension, dyspnea with physical exertion. She was evaluated by her primary care physician, was started on lisinopril for blood pressure management and later switched to losartan. She had an echocardiogram in March that demonstrated normal systolic LV function with an EF of 55 to 60% was possible bicuspid aortic valve with severe aortic valve stenosis and mild AI. She was referred to Dr. Celeste for further evaluation. She presented on 05/28/2022 for a heart catheterization which showed 60% stenosis of her proximal LAD and 90% stenosis of the mid LAD, 80% stenosis of the RCA and a proximal 50% lesion in the left circumflex. We were consulted for surgical evaluation for CABG and AVR. Patient was evaluated by Dr. Collazo, preoperative testing was obtained. On 06/02/2022 she had a CABG x2 with vein grafts secondary to the LAD being highly calcified small coronary artery and she had an AVR. She had some ventricular arrhythmias intraoperatively and was started on amiodarone. She was transferred to the CV SICU in stable condition, on the vent, amiodarone drip, epinephrine drip and a right IJ Meade-Mike catheter in place. She progressed well on operative night. She required nitroglycerin for blood pressure management after epinephrine was discontinued. She was extubated in a timely manner and tolerated nasal cannula without difficulty. Postop day 1 she is actually doing her incentive spirometer and Acapella very well infrequently. She is currently off nitroglycerin drip as it was weaned for systolic blood pressure less than 130. She will start p.o. amiodarone 400 mg p.o. twice daily and then the drip will be discontinued today. Endocrinology consulted for Diabetes Management. New prediabetes per hba1c 6.1 this admission. She follows with primary care. Admits to eating a bread heavy diet previously. Current in CVSI on insulin drip. --> We reviewed A1c this admission for 6.1 in the prediabetes range, we reviewed insulin drip current rates and goals of transitioning off of drip. We reviewed necessary dietary changes moving forward and at discharge. We reviewed potential for medication at discharge to further reduce sugars, we will continue to follow. Patient may benefit from metformin. --> After careful consideration of clinical status, oral intake, w/ thorough MAR review for vasopressor and steroid use as well as current insulin gtt patterns/needs calculations indicate need to transition off insulin drip with 20 units of Lantus now, 2 units of Humalog to cover for current drip rate. Will start 25 units of Lantus tonight continuing twice daily and decrease as able moving forward. We will also initiate SSI Humalog 0 10 ACHS 2, hypoglycemia protocol initiated. --> Diabetes education and dietitian consulted for new prediabetic, complications teaching, glucometer use at discharge GFR ordered by primary team resulting today greater than 60, normal, will follow TSH Resulting 05/28/2022 3.945, normal Lipids reviewed from 05/28/2022, total cholesterol 152, triglycerides 185, HDL 34, LDL 81, patient previously taking statin prior to admission, would benefit from same at discharge for further risk reduction BMI 36.5, obesity, reinforced importance of therapeutic lifestyle changes (ADA diet, daily exercise, and weight reduction). will discuss with Dr. Esquivel in evening rounds Thank you for this consult, we will continue to follow while inpatient. Problem List/Past Medical History Ongoing Aortic stenosis Arthritis CAD (coronary artery disease) Carotid stenosis, left Family history of premature CAD Hyperlipemia Obesity (BMI 30-39.9) Pre-diabetes Historical No qualifying data Procedure/Surgical History CABG x 2 - Coronary artery bypass grafts x 2: 06/02/22 Aortic valve replacement and replacement of ascending aorta: 06/02/22 Echocardiogram: 04/21/22 delivery Cholecystectomy Medications Inpatient acetaminophen, 650 mg= 2 tab(s), Oral, q4h, PRN amiodarone, 400 mg= 2 tab(s), Oral, BIDM amiodarone, 200 mg= 1 tab(s), Oral, qDayM Amiodarone for IV 450 mg [0.5 mg/min] + NS 250 mL aspirin 81 mg oral delayed release tablet, 81 mg= 1 tab(s), Oral, qDayM ceFAZolin, 2 gram(s)= 20 mL, IV Push (INT), q8hr Dulcolax Laxative, 10 mg= 1 supp, Rectal, qDay, PRN enoxaparin, 40 mg= 0.4 mL, Subcutaneous, qDay glucose, 25 gram(s)= 50 mL, IV Push, AsDirected, PRN Insulin Regular for IV 100 unit(s) + NS Premix Diluent 100 mL insulin regular human recombinant 100 units/mL injectable solution, 10 unit(s)= 0.1 mL, IV Push, q1h, PRN Maalox, 30 mL, Oral, q2h, PRN Milk of Magnesia, 30 mL, Oral, qDay, PRN Miralax Powder Packet, 17 gram(s)= 15 mL, Oral, qDay, PRN Multiple Vitamins with Iron oral tablet, 1 tab(s), Oral, qDay mupirocin 2% topical ointment, 1 james, Nostril, each, q12h ondansetron, 4 mg= 2 mL, IV Push, q4h, PRN oxyCODONE 5 mg oral tablet ( IMMEDIATE release ), 5 mg= 1 tab(s), Oral, q4h, PRN oxyCODONE 5 mg oral tablet ( IMMEDIATE release ), 10 mg= 2 tab(s), Oral, q4h, PRN Pepto-Bismol, 30 mL, Oral, AsDirected, PRN Pharmacy See ORDER COMMENTS, 1 EA, Miscellaneous, Daily Plavix, 75 mg= 1 tab(s), Oral, qDay potassium chloride bolus, 20 mEq= 50 mL, IV Piggyback, AsDirected, PRN potassium chloride bolus, 15 mEq= 50 mL, IV Piggyback, AsDirected, PRN potassium chloride bolus, 10 mEq= 50 mL, IV Piggyback, AsDirected, PRN Protonix, 40 mg= 1 tab(s), Oral, qDayAC Sore Throat [place], 1 spray(s), Topical, q1h, PRN Surfak Stool Softener, 240 mg= 1 cap(s), Oral, BID Home aspirin 81 mg oral delayed release tablet, 81 mg= 1 tab(s), Oral, qDay losartan 50 mg oral tablet, 50 mg= 1 tab(s), Oral, qDay Multiple Vitamins oral tablet, 1 tab(s), Oral, Daily rosuvastatin 20 mg oral tablet, 20 mg= 1 tab(s), Oral, qDay Allergies NKA Social History Alcohol Use: Past., 05/22/2022 Nutrition/Health Caffeine intake amount: coffee 5 cups daily., 05/22/2022 Tobacco Nicotine Use: 10 or more cigarettes (1/2 pack or more)/day in last 30 days, Smoker, current status unknown. Type: Cigarettes. Tobacco use per day: 20. Number of years: 35. Total pack years: 1., 05/22/2022 Family History CABG - Coronary artery bypass graft: Father and Brother. Cancer: Father and Grandparent. Diabetes: Mother. Heart attack: Grandparent. Stroke: Father and Grandparent. Immunizations No qualifying data available. Digitally Signed by BAY ELIZONDO on 06/03/2022 03:28 PM [facility] 06-03-2022 Endocrinology Consult note Date of Service 06/03/22 Reason for Consultation Hyperglycemia Management Referring Physician Krystle Valverde APRN History of Present Illness 52 year-old female with past medical history of hypertension, hyperlipidemia, arthritis, tobacco abuse and a family history of premature heart disease with her father having an HI at the age of 46 and brother undergoing CABG at the age of 43. She presented with complaints of midsternal chest pressure that was related to her hypertension, dyspnea with physical exertion. She was evaluated by her primary care physician, was started on lisinopril for blood pressure management and later switched to losartan. She had an echocardiogram in March that demonstrated normal systolic LV function with an EF of 55 to 60% was possible bicuspid aortic valve with severe aortic valve stenosis and mild AI. She was referred to Dr. Celeste for further evaluation. She presented on 05/28/2022 for a heart catheterization which showed 60% stenosis of her proximal LAD and 90% stenosis of the mid LAD, 80% stenosis of the RCA and a proximal 50% lesion in the left circumflex. We were consulted for surgical evaluation for CABG and AVR. Patient was evaluated by Dr. Collazo, preoperative testing was obtained. On 06/02/2022 she had a CABG x2 with vein grafts secondary to the LAD being highly calcified small coronary artery and she had an AVR. She had some ventricular arrhythmias intraoperatively and was started on amiodarone. She was transferred to the CV SICU in stable condition, on the vent, amiodarone drip, epinephrine drip and a right IJ Meade-Mike catheter in place. She progressed well on operative night. She required nitroglycerin for blood pressure management after epinephrine was discontinued. She was extubated in a timely manner and tolerated nasal cannula without difficulty. Postop day 1 she is actually doing her incentive spirometer and Acapella very well infrequently. She is currently off nitroglycerin drip as it was weaned for systolic blood pressure less than 130. She will start p.o. amiodarone 400 mg p.o. twice daily and then the drip will be discontinued today. Endocrinology consulted for Diabetes Management. New prediabetes per hba1c 6.1 this admission. She follows with primary care. Admits to eating a bread heavy diet previously. Current in CVSI on insulin drip. Denies recent weight changes, steroid use. Denies symptoms including polydipsia, polyuria, polyphagia. Denies blurred vision, neuropathy, CKD. Family history of diabetes with her mom. Review of Systems Negative for all systems except at mentioned in HPI Physical Exam Vitals and Measurements Weight Current Weight Dosing Weight: 111.8 kg (05/28/22) Current Weight: 115 kg (06/03/22) Current Weight: 111.3 kg (05/30/22) Alert, sitting in chair, no acute distress Respirations even and unlabored Answers questions appropriately. Mood and affect normal. Lab Results 06/03 13:53 Potassium Level: 4.2 06/03 03:37 WBC: 13.4 H Hgb: 9.7 L Hct: 28.6 L Platelet: 146 L Neutrophil %: 89.2 H Glucose Level: 117 H Sodium Level: 143 Potassium Level: 4.2 BUN: 12.0 Creatinine Lvl (s): 0.84 06/02 21:33 Potassium Level: 4.6 06/02 17:03 WBC: 28.3 H Hgb: 11.3 L Hct: 34.0 Platelet: 213 Glucose Level: 173 H Sodium Level: 142 Potassium Level: 4.5 BUN: 13.0 Creatinine Lvl (s): 0.97 Group Detail Date Value w/Units Flags Normal Range Normal Reference Text Comment Ind Glucose Testing Blood Glucose, Capillary 06/03/2022 13:57:00 EST 107 mg/dL 70-110 Glucose Testing Blood Glucose, Capillary 06/03/2022 12:04:00 EST 98 mg/dL 70-110 Glucose Testing Blood Glucose, Capillary 06/03/2022 10:51:00 EST 96 mg/dL 70-110 Glucose Testing Blood Glucose, Capillary 06/03/2022 08:59:00 EST 101 mg/dL 70-110 Glucose Testing Blood Glucose, Capillary 06/03/2022 07:15:00 EST 108 mg/dL 70-110 Glucose Testing Blood Glucose, Capillary 06/03/2022 04:53:00 EST 116 mg/dL HI 70-110 Glucose Testing Glucose Level 06/03/2022 03:37:00 EST 117 mg/dL HI 70-110 Glucose Testing Blood Glucose, Capillary 06/03/2022 02:52:00 EST 115 mg/dL HI 70-110 Glucose Testing Blood Glucose, Capillary 06/03/2022 02:04:00 EST 120 mg/dL HI 70-110 Glucose Testing Blood Glucose, Capillary 06/03/2022 00:47:00 EST 137 mg/dL HI 70-110 Glucose Testing Blood Glucose, Capillary 06/02/2022 22:18:00 EST 128 mg/dL HI 70-110 Glucose Testing Blood Glucose, Capillary 06/02/2022 21:13:00 EST 118 mg/dL HI 70-110 Glucose Testing Blood Glucose, Capillary 06/02/2022 20:00:00 EST 157 mg/dL HI 70-110 Glucose Testing Blood Glucose, Capillary 06/02/2022 18:52:00 EST 198 mg/dL HI 70-110 Glucose Testing Glucose Level 06/02/2022 17:03:00 EST 173 mg/dL HI 70-110 Assessment/Plan 1. CAD (coronary artery disease) EF 55-60%, s/p CABG x2 with Vein grafts 06/02/22 2. Aortic stenosis s/p AVR 06/02/22 3. Pre-diabetes Hgb A1c 6.1% 4. HTN (hypertension) 5. Hyperlipemia 6. Arthritis 7. Tobacco use 8. Family history of premature CAD 9. Obesity (BMI 30-39.9) 10. Carotid stenosis, left 11. Hyperglycemia 52 year-old female with past medical history of hypertension, hyperlipidemia, arthritis, tobacco abuse and a family history of premature heart disease with her father having an HI at the age of 46 and brother undergoing CABG at the age of 43. She presented with complaints of midsternal chest pressure that was related to her hypertension, dyspnea with physical exertion. She was evaluated by her primary care physician, was started on lisinopril for blood pressure management and later switched to losartan. She had an echocardiogram in March that demonstrated normal systolic LV function with an EF of 55 to 60% was possible bicuspid aortic valve with severe aortic valve stenosis and mild AI. She was referred to Dr. Celeste for further evaluation. She presented on 05/28/2022 for a heart catheterization which showed 60% stenosis of her proximal LAD and 90% stenosis of the mid LAD, 80% stenosis of the RCA and a proximal 50% lesion in the left circumflex. We were consulted for surgical evaluation for CABG and AVR. Patient was evaluated by Dr. Collazo, preoperative testing was obtained. On 06/02/2022 she had a CABG x2 with vein grafts secondary to the LAD being highly calcified small coronary artery and she had an AVR. She had some ventricular arrhythmias intraoperatively and was started on amiodarone. She was transferred to the CV SICU in stable condition, on the vent, amiodarone drip, epinephrine drip and a right IJ Meade-Mike catheter in place. She progressed well on operative night. She required nitroglycerin for blood pressure management after epinephrine was discontinued. She was extubated in a timely manner and tolerated nasal cannula without difficulty. Postop day 1 she is actually doing her incentive spirometer and Acapella very well infrequently. She is currently off nitroglycerin drip as it was weaned for systolic blood pressure less than 130. She will start p.o. amiodarone 400 mg p.o. twice daily and then the drip will be discontinued today. Endocrinology consulted for Diabetes Management. New prediabetes per hba1c 6.1 this admission. She follows with primary care. Admits to eating a bread heavy diet previously. Current in CVSI on insulin drip. --> We reviewed A1c this admission for 6.1 in the prediabetes range, we reviewed insulin drip current rates and goals of transitioning off of drip. We reviewed necessary dietary changes moving forward and at discharge. We reviewed potential for medication at discharge to further reduce sugars, we will continue to follow. Patient may benefit from metformin. --> After careful consideration of clinical status, oral intake, w/ thorough MAR review for vasopressor and steroid use as well as current insulin gtt patterns/needs calculations indicate need to transition off insulin drip with 20 units of Lantus now, 2 units of Humalog to cover for current drip rate. Will start 25 units of Lantus tonight continuing twice daily and decrease as able moving forward. We will also initiate SSI Humalog 0 10 ACHS 2, hypoglycemia protocol initiated. --> Diabetes education and dietitian consulted for new prediabetic, complications teaching, glucometer use at discharge GFR ordered by primary team resulting today greater than 60, normal, will follow TSH Resulting 05/28/2022 3.945, normal Lipids reviewed from 05/28/2022, total cholesterol 152, triglycerides 185, HDL 34, LDL 81, patient previously taking statin prior to admission, would benefit from same at discharge for further risk reduction BMI 36.5, obesity, reinforced importance of therapeutic lifestyle changes (ADA diet, daily exercise, and weight reduction). will discuss with Dr. Esquivel in evening rounds Thank you for this consult, we will continue to follow while inpatient. Problem List/Past Medical History Ongoing Aortic stenosis Arthritis CAD (coronary artery disease) Carotid stenosis, left Family history of premature CAD Hyperlipemia Obesity (BMI 30-39.9) Pre-diabetes Historical No qualifying data Procedure/Surgical History CABG x 2 - Coronary artery bypass grafts x 2: 06/02/22 Aortic valve replacement and replacement of ascending aorta: 06/02/22 Echocardiogram: 04/21/22 delivery Cholecystectomy Medications Inpatient acetaminophen, 650 mg= 2 tab(s), Oral, q4h, PRN amiodarone, 400 mg= 2 tab(s), Oral, BIDM amiodarone, 200 mg= 1 tab(s), Oral, qDayM Amiodarone for IV 450 mg [0.5 mg/min] + NS 250 mL aspirin 81 mg oral delayed release tablet, 81 mg= 1 tab(s), Oral, qDayM ceFAZolin, 2 gram(s)= 20 mL, IV Push (INT), q8hr Dulcolax Laxative, 10 mg= 1 supp, Rectal, qDay, PRN enoxaparin, 40 mg= 0.4 mL, Subcutaneous, qDay glucose, 25 gram(s)= 50 mL, IV Push, AsDirected, PRN Insulin Regular for IV 100 unit(s) + NS Premix Diluent 100 mL insulin regular human recombinant 100 units/mL injectable solution, 10 unit(s)= 0.1 mL, IV Push, q1h, PRN Maalox, 30 mL, Oral, q2h, PRN Milk of Magnesia, 30 mL, Oral, qDay, PRN Miralax Powder Packet, 17 gram(s)= 15 mL, Oral, qDay, PRN Multiple Vitamins with Iron oral tablet, 1 tab(s), Oral, qDay mupirocin 2% topical ointment, 1 james, Nostril, each, q12h ondansetron, 4 mg= 2 mL, IV Push, q4h, PRN oxyCODONE 5 mg oral tablet ( IMMEDIATE release ), 5 mg= 1 tab(s), Oral, q4h, PRN oxyCODONE 5 mg oral tablet ( IMMEDIATE release ), 10 mg= 2 tab(s), Oral, q4h, PRN Pepto-Bismol, 30 mL, Oral, AsDirected, PRN Pharmacy See ORDER COMMENTS, 1 EA, Miscellaneous, Daily Plavix, 75 mg= 1 tab(s), Oral, qDay potassium chloride bolus, 20 mEq= 50 mL, IV Piggyback, AsDirected, PRN potassium chloride bolus, 15 mEq= 50 mL, IV Piggyback, AsDirected, PRN potassium chloride bolus, 10 mEq= 50 mL, IV Piggyback, AsDirected, PRN Protonix, 40 mg= 1 tab(s), Oral, qDayAC Sore Throat [place], 1 spray(s), Topical, q1h, PRN Surfak Stool Softener, 240 mg= 1 cap(s), Oral, BID Home aspirin 81 mg oral delayed release tablet, 81 mg= 1 tab(s), Oral, qDay losartan 50 mg oral tablet, 50 mg= 1 tab(s), Oral, qDay Multiple Vitamins oral tablet, 1 tab(s), Oral, Daily rosuvastatin 20 mg oral tablet, 20 mg= 1 tab(s), Oral, qDay Allergies NKA Social History Alcohol Use: Past., 05/22/2022 Nutrition/Health Caffeine intake amount: coffee 5 cups daily., 05/22/2022 Tobacco Nicotine Use: 10 or more cigarettes (1/2 pack or more)/day in last 30 days, Smoker, current status unknown. Type: Cigarettes. Tobacco use per day: 20. Number of years: 35. Total pack years: 1., 05/22/2022 Family History CABG - Coronary artery bypass graft: Father and Brother. Cancer: Father and Grandparent. Diabetes: Mother. Heart attack: Grandparent. Stroke: Father and Grandparent. Immunizations No qualifying data available. Digitally Signed by BAY ELIZONDO on 06/03/2022 03:28 PM [facility] 06-03-2022 Note Date of Service 06/03/2022 Chief Complaint Endocrine consult for diabetic management. Transferred to the CV stepdown later today.POD #1 -year-old female with past medical history of hypertension, hyperlipidemia, arthritis, tobacco abuse and a family history of premature heart disease with her father having an HI at the age of 46 and brother undergoing CABG at the age of 43. She presented with complaints of midsternal chest pressure that was related to her hypertension, dyspnea with physical exertion. She was evaluated by her primary care physician, was started on lisinopril for blood pressure management and later switched to losartan. She had an echocardiogram in March that demonstrated normal systolic LV function with an EF of 55 to 60% was possible bicuspid aortic valve with severe aortic valve stenosis and mild AI. She was referred to Dr. Celeste for further evaluation. She presented on 05/28/2022 for a heart catheterization which showed 60% stenosis of her proximal LAD and 90% stenosis of the mid LAD, 80% stenosis of the RCA and a proximal 50% lesion in the left circumflex. We were consulted for surgical evaluation for CABG and AVR. Patient was evaluated by Dr. oCllazo, preoperative testing was obtained. She required a CTA of the neck to further evaluate carotid stenosis that was noted on ultrasound. Left carotid was only 30% stenosis on the CTA of the neck. On 06/02/2022 she had a CABG x2 with vein grafts secondary to the LAD being highly calcified small coronary artery and she had an AVR. She had some ventricular arrhythmias intraoperatively and was started on amiodarone. She was transferred to the CV SICU in stable condition, on the vent, amiodarone drip, epinephrine drip and a right IJ Meade-Mike catheter in place. She progressed well on operative night. She required nitroglycerin for blood pressure management after epinephrine was discontinued. She was extubated in a timely manner and tolerated nasal cannula without difficulty. Postop day 1 she is actually doing her incentive spirometer and Acapella very well infrequently. She is currently off nitroglycerin drip as it was weaned for systolic blood pressure less than 130. She will start p.o. amiodarone 400 mg p.o. twice daily and then the drip will be discontinued today. Subjective Resting comfortably in bed, complains of incisional pain with deep breathing but working on incentive spirometer consistently Objective Vitals and Measurements T: 37.3 C (Intravascular) TMIN: 33.52 C TMAX: 38.09 C HR: 89(Monitored) RR: 15 BP: 107/57(Line) SpO2: 90% WT: 115 kg Intake and Output 7AM Yesterday to 7AM Today Intake and Output (Last 24 hours) Intake Autotransfusion Amt 450.00 CPB (Anes) 3150.00 Oral Intake 240.00 Administration Information 2959.76 Output Chest Tube Output: 470.00 Urinary Catheter Output: 1695.00 Intra-Op EBL 400.00 Intra-Op Urine Catheter 1100.00 Total Summary Total Intake 6799.76 Total Output 3665.00 Fluid Balance 3134.76 Physical Exam Neuro alert and oriented x3, appropriate, moves all extremities without difficulty, speech clear Lungs are clear bilaterally, respirations nonlabored at rest, SaO2 94% on 2 L nasal cannula Heart S1 and S2 sinus rhythm in the 80s, temporary ventricular pacing wires intact, positive pericardial rub Right IJ Meade-Mike catheter, cardiac index 2.9-3.6, PA pressures 19 over 6-20/9, CVP 5 to 6 mmHg, SPO2 currently 68% Chest tube Drain 390 cc since surgery/140 cc in 8 hours abdomen is large soft nontender bowel sounds present hypoactive Cruz catheter Drained 1395 cc since surgery/515 cc in 8 hours of clear yellow urine Extremities are well-perfused pedal pulses +1/3, extremities warm to the touch Skin midsternal chest incision with Aquacel dressing dry and intact, right leg dressing dry and intact Weight Current Weight Dosing Weight: 111.8 kg (05/28/22) Current Weight: 115 kg (06/03/22) Current Weight: 111.3 kg (05/30/22) Medications Medications (32) Active Scheduled: (7) amiodarone 200 mg tablet 400 mg 2 tab(s), Oral, BIDM amiodarone 200 mg tablet 200 mg 1 tab(s), Oral, qDayM aspirin 81 mg EC 81 mg 1 tab(s), Oral, qDayM ceFAZolin syringe 2 gram(s) 20 mL, IV Push (INT), q8hr Misc communication order 1 EA, Miscellaneous, Daily mupirocin 2% Ointment 22 Gram(s) tube 1 james, Nostril, each, q12h pantoprazole 40 mg VIAL 40 mg, IV Push, qDayAC Continuous: (9) amiodarone 450 mg [0.5 mg/min] + sodium chloride SILVESTRE 250 mL 250 mL, Intravenous, 16.67 mL/hr Dextrose 5% with 0.45% NACL 1,000 mL 1,000 mL, Intravenous, 20 mL/hr epinephrine 4 mg [2 mcg/min] + Sodium Chloride 0.9% 250 mL 250 mL, Intravenous, 7.5 mL/hr insulin regular 100 unit(s) + NS Premix Diluent 100 mL 100 mL, Intravenous nitroglycerin 50 mg/250 mL D5W 50 mg [5 mcg/min] + Dextrose 5% Premix Diluent 250 mL 250 mL, Intravenous, 1.5 mL/hr nitroprusside 50 mg [0.2 mcg/kg/min] + NS Premix Diluent 100 mL 100 mL, Intravenous, 2.68 mL/hr norepinephrine 8 mg [2 mcg/min] + NS Premix Diluent 250 mL 250 mL, Intravenous, 3.75 mL/hr NS (0.9% nacl) 1,000 mL 1,000 mL, Intravenous, 20 mL/hr NS (0.9% nacl) 500 mL 500 mL, Intravenous, 20 mL/hr PRN: (16) acetaminophen 325 mg Tablet 650 mg 2 tab(s), Oral, q4h albumin human 5% 12.5 gram(s) 250 mL, IV Piggyback (MED), AsDirected dextrose 50% Solution Disp syringe 50 mL 25 g 50 mL, IV Push, AsDirected insulin regular human recombinant 100 units/mL (3 mL) Soln 10 unit(s) 0.1 mL, IV Push, q1h magnesium sulfate 4g/50mL PMX 4 g 50 mL, IV Piggyback, AsDirected morphine 2 mg/mL 1 mL syringe 2 mg 1 mL, IV Push, q3h morphine 5 mg/mL 1 mL 5 mg 1 mL, IV Push, q3h nitroglycerin 100 mcg/1 mL 10 mL VIAL 100 mcg 1 mL, IV Push, AsDirected ondansetron 2 mg/ 1 mL 2 mL INJ 4 mg 2 mL, IV Push, q4h oxycodone 5 mg tablet (immediate release) 5 mg 1 tab(s), Oral, q4h oxycodone 5 mg tablet (immediate release) 10 mg 2 tab(s), Oral, q4h potassium chloride (PMX) 20 mEq 50 mL, IV Piggyback, AsDirected potassium chloride (PMX) 15 mEq 50 mL, IV Piggyback, AsDirected potassium chloride (PMX) 10 mEq 50 mL, IV Piggyback, AsDirected protamine 10 mg/mL (50 mg/5 mL) vial 50 mg 5 mL, IV Push, Once sodium phosphate 30 mmol 10 mL, IV Piggyback, AsDirected Lab Results 06/03 03:37 WBC: 13.4 H Hgb: 9.7 L Hct: 28.6 L Platelet: 146 L Neutrophil %: 89.2 H Glucose Level: 117 H Sodium Level: 143 Potassium Level: 4.2 BUN: 12.0 Creatinine Lvl (s): 0.84 06/02 21:33 Potassium Level: 4.6 06/02 17:03 WBC: 28.3 H Hgb: 11.3 L Hct: 34.0 Platelet: 213 Glucose Level: 173 H Sodium Level: 142 Potassium Level: 4.5 BUN: 13.0 Creatinine Lvl (s): 0.97 06/02 02:03 Platelet: 219 Protime: 10.6 PT International Ratio: 0.9 EKG No qualifying data available. Assessment/Plan 1. CAD (coronary artery disease) EF 55-60%, s/p CABG x2 with Vein grafts 06/02/22 Sinus sinus rhythm in the 80s, on aspirin, Will add beta-hans later today as heart rate and blood pressure warrant Currently on nitroglycerin drip at 30 mics per minute for blood pressure management Keep systolic blood pressure less than 130 and wean nitroglycerin drip 2. Aortic stenosis s/p AVR 06/02/22 Currently sinus rhythm in the 80s 3. Pre-diabetes Hgb A1c 6.1% Glucose 101 117, currently on 4 units of insulin per hour Consult endocrinology 4. HTN (hypertension) Blood pressure 107/57 to a high of 120/56, nitroglycerin drip currently off Maintain systolic blood pressure less than 130 5. Hyperlipemia Resume rosuvastatin when LFTs have normalized Reassess again prior to discharge 6. Arthritis Consult PT OT Up to the chair this morning Ambulate as able 7. Tobacco use She quit prior to hospitalization, she is agreeable to continuing no smoking 8. Family history of premature CAD 9. Obesity (BMI 30-39.9) 10. Carotid stenosis, left Preoperative CTA of the neck demonstrated 30% stenosis in the left internal carotid artery She is neurologically intact Orders: Communication Order (scheduled) Communication Order (scheduled) Consult to [facility] Plan: Maintain systolic blood pressure less than 130, wean nitroglycerin drip Discontinue amiodarone drip after the second p.o. dose of amiodarone today Discontinue Meade-Mike catheter PT OT consult Possible transfer to the CV stepdown later this morning Patient seen and discussed with Dr. Tejeda, labs and x-ray in the a.m. Digitally Signed by KRYSTLE VALVERDE on 06/03/2022 09:41 AM [facility] 06-03-2022 Note Date of Service 06/03/2022 Chief Complaint Endocrine consult for diabetic management. Transferred to the CV stepdown later today.POD #1 -year-old female with past medical history of hypertension, hyperlipidemia, arthritis, tobacco abuse and a family history of premature heart disease with her father having an HI at the age of 46 and brother undergoing CABG at the age of 43. She presented with complaints of midsternal chest pressure that was related to her hypertension, dyspnea with physical exertion. She was evaluated by her primary care physician, was started on lisinopril for blood pressure management and later switched to losartan. She had an echocardiogram in March that demonstrated normal systolic LV function with an EF of 55 to 60% was possible bicuspid aortic valve with severe aortic valve stenosis and mild AI. She was referred to Dr. Celeste for further evaluation. She presented on 05/28/2022 for a heart catheterization which showed 60% stenosis of her proximal LAD and 90% stenosis of the mid LAD, 80% stenosis of the RCA and a proximal 50% lesion in the left circumflex. We were consulted for surgical evaluation for CABG and AVR. Patient was evaluated by Dr. Collazo, preoperative testing was obtained. She required a CTA of the neck to further evaluate carotid stenosis that was noted on ultrasound. Left carotid was only 30% stenosis on the CTA of the neck. On 06/02/2022 she had a CABG x2 with vein grafts secondary to the LAD being highly calcified small coronary artery and she had an AVR. She had some ventricular arrhythmias intraoperatively and was started on amiodarone. She was transferred to the CV SICU in stable condition, on the vent, amiodarone drip, epinephrine drip and a right IJ Meade-Mike catheter in place. She progressed well on operative night. She required nitroglycerin for blood pressure management after epinephrine was discontinued. She was extubated in a timely manner and tolerated nasal cannula without difficulty. Postop day 1 she is actually doing her incentive spirometer and Acapella very well infrequently. She is currently off nitroglycerin drip as it was weaned for systolic blood pressure less than 130. She will start p.o. amiodarone 400 mg p.o. twice daily and then the drip will be discontinued today. Subjective Resting comfortably in bed, complains of incisional pain with deep breathing but working on incentive spirometer consistently Objective Vitals and Measurements T: 37.3 C (Intravascular) TMIN: 33.52 C TMAX: 38.09 C HR: 89(Monitored) RR: 15 BP: 107/57(Line) SpO2: 90% WT: 115 kg Intake and Output 7AM Yesterday to 7AM Today Intake and Output (Last 24 hours) Intake Autotransfusion Amt 450.00 CPB (Anes) 3150.00 Oral Intake 240.00 Administration Information 2959.76 Output Chest Tube Output: 470.00 Urinary Catheter Output: 1695.00 Intra-Op EBL 400.00 Intra-Op Urine Catheter 1100.00 Total Summary Total Intake 6799.76 Total Output 3665.00 Fluid Balance 3134.76 Physical Exam Neuro alert and oriented x3, appropriate, moves all extremities without difficulty, speech clear Lungs are clear bilaterally, respirations nonlabored at rest, SaO2 94% on 2 L nasal cannula Heart S1 and S2 sinus rhythm in the 80s, temporary ventricular pacing wires intact, positive pericardial rub Right IJ Meade-Mike catheter, cardiac index 2.9-3.6, PA pressures 19 over 6-20/9, CVP 5 to 6 mmHg, SPO2 currently 68% Chest tube Drain 390 cc since surgery/140 cc in 8 hours abdomen is large soft nontender bowel sounds present hypoactive Cruz catheter Drained 1395 cc since surgery/515 cc in 8 hours of clear yellow urine Extremities are well-perfused pedal pulses +1/3, extremities warm to the touch Skin midsternal chest incision with Aquacel dressing dry and intact, right leg dressing dry and intact Weight Current Weight Dosing Weight: 111.8 kg (05/28/22) Current Weight: 115 kg (06/03/22) Current Weight: 111.3 kg (05/30/22) Medications Medications (32) Active Scheduled: (7) amiodarone 200 mg tablet 400 mg 2 tab(s), Oral, BIDM amiodarone 200 mg tablet 200 mg 1 tab(s), Oral, qDayM aspirin 81 mg EC 81 mg 1 tab(s), Oral, qDayM ceFAZolin syringe 2 gram(s) 20 mL, IV Push (INT), q8hr Misc communication order 1 EA, Miscellaneous, Daily mupirocin 2% Ointment 22 Gram(s) tube 1 james, Nostril, each, q12h pantoprazole 40 mg VIAL 40 mg, IV Push, qDayAC Continuous: (9) amiodarone 450 mg [0.5 mg/min] + sodium chloride SILVESTRE 250 mL 250 mL, Intravenous, 16.67 mL/hr Dextrose 5% with 0.45% NACL 1,000 mL 1,000 mL, Intravenous, 20 mL/hr epinephrine 4 mg [2 mcg/min] + Sodium Chloride 0.9% 250 mL 250 mL, Intravenous, 7.5 mL/hr insulin regular 100 unit(s) + NS Premix Diluent 100 mL 100 mL, Intravenous nitroglycerin 50 mg/250 mL D5W 50 mg [5 mcg/min] + Dextrose 5% Premix Diluent 250 mL 250 mL, Intravenous, 1.5 mL/hr nitroprusside 50 mg [0.2 mcg/kg/min] + NS Premix Diluent 100 mL 100 mL, Intravenous, 2.68 mL/hr norepinephrine 8 mg [2 mcg/min] + NS Premix Diluent 250 mL 250 mL, Intravenous, 3.75 mL/hr NS (0.9% nacl) 1,000 mL 1,000 mL, Intravenous, 20 mL/hr NS (0.9% nacl) 500 mL 500 mL, Intravenous, 20 mL/hr PRN: (16) acetaminophen 325 mg Tablet 650 mg 2 tab(s), Oral, q4h albumin human 5% 12.5 gram(s) 250 mL, IV Piggyback (MED), AsDirected dextrose 50% Solution Disp syringe 50 mL 25 g 50 mL, IV Push, AsDirected insulin regular human recombinant 100 units/mL (3 mL) Soln 10 unit(s) 0.1 mL, IV Push, q1h magnesium sulfate 4g/50mL PMX 4 g 50 mL, IV Piggyback, AsDirected morphine 2 mg/mL 1 mL syringe 2 mg 1 mL, IV Push, q3h morphine 5 mg/mL 1 mL 5 mg 1 mL, IV Push, q3h nitroglycerin 100 mcg/1 mL 10 mL VIAL 100 mcg 1 mL, IV Push, AsDirected ondansetron 2 mg/ 1 mL 2 mL INJ 4 mg 2 mL, IV Push, q4h oxycodone 5 mg tablet (immediate release) 5 mg 1 tab(s), Oral, q4h oxycodone 5 mg tablet (immediate release) 10 mg 2 tab(s), Oral, q4h potassium chloride (PMX) 20 mEq 50 mL, IV Piggyback, AsDirected potassium chloride (PMX) 15 mEq 50 mL, IV Piggyback, AsDirected potassium chloride (PMX) 10 mEq 50 mL, IV Piggyback, AsDirected protamine 10 mg/mL (50 mg/5 mL) vial 50 mg 5 mL, IV Push, Once sodium phosphate 30 mmol 10 mL, IV Piggyback, AsDirected Lab Results 06/03 03:37 WBC: 13.4 H Hgb: 9.7 L Hct: 28.6 L Platelet: 146 L Neutrophil %: 89.2 H Glucose Level: 117 H Sodium Level: 143 Potassium Level: 4.2 BUN: 12.0 Creatinine Lvl (s): 0.84 06/02 21:33 Potassium Level: 4.6 06/02 17:03 WBC: 28.3 H Hgb: 11.3 L Hct: 34.0 Platelet: 213 Glucose Level: 173 H Sodium Level: 142 Potassium Level: 4.5 BUN: 13.0 Creatinine Lvl (s): 0.97 06/02 02:03 Platelet: 219 Protime: 10.6 PT International Ratio: 0.9 EKG No qualifying data available. Assessment/Plan 1. CAD (coronary artery disease) EF 55-60%, s/p CABG x2 with Vein grafts 06/02/22 Sinus sinus rhythm in the 80s, on aspirin, Will add beta-hans later today as heart rate and blood pressure warrant Currently on nitroglycerin drip at 30 mics per minute for blood pressure management Keep systolic blood pressure less than 130 and wean nitroglycerin drip 2. Aortic stenosis s/p AVR 06/02/22 Currently sinus rhythm in the 80s 3. Pre-diabetes Hgb A1c 6.1% Glucose 101 117, currently on 4 units of insulin per hour Consult endocrinology 4. HTN (hypertension) Blood pressure 107/57 to a high of 120/56, nitroglycerin drip currently off Maintain systolic blood pressure less than 130 5. Hyperlipemia Resume rosuvastatin when LFTs have normalized Reassess again prior to discharge 6. Arthritis Consult PT OT Up to the chair this morning Ambulate as able 7. Tobacco use She quit prior to hospitalization, she is agreeable to continuing no smoking 8. Family history of premature CAD 9. Obesity (BMI 30-39.9) 10. Carotid stenosis, left Preoperative CTA of the neck demonstrated 30% stenosis in the left internal carotid artery She is neurologically intact Orders: Communication Order (scheduled) Communication Order (scheduled) Consult to [facility] Plan: Maintain systolic blood pressure less than 130, wean nitroglycerin drip Discontinue amiodarone drip after the second p.o. dose of amiodarone today Discontinue Meade-Mike catheter PT OT consult Possible transfer to the stepdown later this morning Patient seen and discussed with Dr. Tejeda, labs and x-ray in the a.m. Digitally Signed by KRYSTLE VALVERDE on 06/03/2022 09:41 AM [facility] 06-03-2022 Note ORIGINAL EXAMINATION: ONE XRAY VIEW OF THE CHEST 06/03/2022 5:36 am COMPARISON: Chest x-ray on 06/02/2022 HISTORY: ORDERING SYSTEM PROVIDED HISTORY: Reason for Exam: abnormal breath sounds FINDINGS: The endotracheal tube and the enteric tube have been removed. Right internal jugular Meade-Mike catheter tip is in the main pulmonary artery. Left subclavian central venous catheter tip is in the superior vena cava. Mediastinal drain is in place. Mild cardiomegaly is stable. There is mild pulmonary vascular congestion. Small left pleural effusion is evident. There is no visible pneumothorax. IMPRESSION: Patient has been extubated. Mild pulmonary vascular congestion. Small left pleural effusion. Interpreted by: James Barron MD Preliminary Report By: James Barron MD Electronically signed By James Barron MD Dictated Date: 06/03/2022 5:41:10 AM Prelim Date: 06/03/2022 5:42:34 AM Sign Date: 06/03/2022 5:42:34 AM Ordering Provider: [facility] 06-03-2022 Note ORIGINAL EXAMINATION: ONE XRAY VIEW OF THE CHEST 06/03/2022 5:36 am COMPARISON: Chest x-ray on 06/02/2022 HISTORY: ORDERING SYSTEM PROVIDED HISTORY: Reason for Exam: abnormal breath sounds FINDINGS: The endotracheal tube and the enteric tube have been removed. Right internal jugular Meade-Miek catheter tip is in the main pulmonary artery. Left subclavian central venous catheter tip is in the superior vena cava. Mediastinal drain is in place. Mild cardiomegaly is stable. There is mild pulmonary vascular congestion. Small left pleural effusion is evident. There is no visible pneumothorax. IMPRESSION: Patient has been extubated. Mild pulmonary vascular congestion. Small left pleural effusion. Interpreted by: James Barron MD Preliminary Report By: James Barron MD Electronically signed By James Barron MD Dictated Date: 06/03/2022 5:41:10 AM Prelim Date: 06/03/2022 5:42:34 AM Sign Date: 06/03/2022 5:42:34 AM Ordering Provider: [facility] 06-02-2022 Note ORIGINAL EXAMINATION: ONE XRAY VIEW OF THE CHEST 06/02/2022 5:27 pm COMPARISON: Chest x-ray 05/28/2022, CT chest 05/28/2022 HISTORY: ORDERING SYSTEM PROVIDED HISTORY: Reason for Exam: Check line placement FINDINGS: Patient is status post median sternotomy. Interval placement of an enteric tube with the tip and side port projecting over the expected location of the stomach. The endotracheal tube terminates 3.5 cm above the rodolfo. Interval insertion of a Meade-Mike catheter with the tip projecting over the expected location of the main pulmonary artery. Interval placement of a left subclavian central venous catheter with the tip at the cavoatrial junction. Interval insertion of a mediastinal drain. Stable cardiomegaly. New right upper lobe opacities. No vascular congestion, pleural effusion, or pneumothorax. IMPRESSION: All life support devices within the chest appear in appropriate position. Opacities within the right upper lobe may reflect developing pneumonia versus edema from mitral valve pathology. I have personally reviewed the images of this examination and agree with the resident's findings and interpretation. Interpreted by: Augusto Dukes Preliminary Report By: Fide Shaikh Electronically signed By Augusto Dukes Dictated Date: 06/02/2022 7:20:00 PM Prelim Date: 06/02/2022 7:23:07 PM Sign Date: 06/02/2022 7:42:55 PM Ordering Provider: [facility] 06-02-2022 Note ORIGINAL EXAMINATION: ONE XRAY VIEW OF THE CHEST 06/02/2022 5:27 pm COMPARISON: Chest x-ray 05/28/2022, CT chest 05/28/2022 HISTORY: ORDERING SYSTEM PROVIDED HISTORY: Reason for Exam: Check line placement FINDINGS: Patient is status post median sternotomy. Interval placement of an enteric tube with the tip and side port projecting over the expected location of the stomach. The endotracheal tube terminates 3.5 cm above the rodolfo. Interval insertion of a Meade-Mike catheter with the tip projecting over the expected location of the main pulmonary artery. Interval placement of a left subclavian central venous catheter with the tip at the cavoatrial junction. Interval insertion of a mediastinal drain. Stable cardiomegaly. New right upper lobe opacities. No vascular congestion, pleural effusion, or pneumothorax. IMPRESSION: All life support devices within the chest appear in appropriate position. Opacities within the right upper lobe may reflect developing pneumonia versus edema from mitral valve pathology. I have personally reviewed the images of this examination and agree with the resident's findings and interpretation. Interpreted by: Augusto Dukes Preliminary Report By: Fide Shaikh Electronically signed By Augusto Dukes Dictated Date: 06/02/2022 7:20:00 PM Prelim Date: 06/02/2022 7:23:07 PM Sign Date: 06/02/2022 7:42:55 PM Ordering Provider: [facility] 06-02-2022 Anesthesiology Consult note Patient: RAAD PERRY Age: 52 years Sex: Female : 1970 Associated Diagnoses: None Author: MARIAH BECKER DO Preoperative Information Greater than 6 hours Anesthesia history Patient's history: negative. Family's history: negative. Review of Systems Ear/Nose/Mouth/Throat: Negative except as documented in history of present illness. Respiratory: Negative except as documented in history of present illness. Cardiovascular: Negative except as documented in history of present illness. Gastrointestinal: Negative except as documented in history of present illness. Genitourinary: Negative except as documented in history of present illness. Endocrine: Negative except as documented in history of present illness. Musculoskeletal: Negative except as documented in history of present illness. Integumentary: Negative except as documented in history of present illness. Neurologic: Negative except as documented in history of present illness. Health Status Allergies: Allergic Reactions (Selected) NKA, Allergies (1) ActiveReaction NKANone Documented Current medications: (Selected) Inpatient Medications Ordered Adrenalin 4 mg + Normal Saline 250 mL: Start: 06/02/22 6:00:00 EST, 18 hour(s), Stop date 06/02/22 23:59:00 EST, Infuse as directed for CVOR Cardioplegic [place]: Start: 06/02/22 6:00:00 EST, Stop date 06/02/22 6:00:00 EST, Rate: 0 mL/hr Cefuroxime Inj (Zinacef): Start: 06/02/22 6:00:00 EST, Dose = 1.5 gram(s), Topical, PREOP pharm, 18 hour(s), Stop: 06/02/22 23:59:00 EST, mL/hr, Infuse over: 0 minute(s), 0 DuoNeb: Start: 05/28/22 8:44:00 EST, Dose = 3 mL, Soln, Inhalation, q4hRT, PRN, decreased breath sounds, 05/28/22 8:44:00 EST Heparin 10,000 units/mL: Start: 06/02/22 6:00:00 EST, Dose = 10,000 unit(s), = 1 mL, Miscellaneous, PREOP pharm, 12 hour(s), Stop: 06/02/22 17:59:00 EST, mL/hr, Infuse over: 0 minute(s), 0 Kefzol: Start: 06/02/22 6:00:00 EST, Dose= 2 gram(s), = 20 mL, IV Push (INT), PREOP pharm, Routine, Rate: 240 mL/hr, Infuse over: 5 minute(s), 20 mL, 06/02/22 6:00:00 EST Multiple Vitamins oral tablet: Start: 05/28/22 12:00:00 EST, Dose = 1 tab(s), Tab, Oral, Daily, 05/28/22 10:49:00 EST NO METFORMIN (Glucophage) X 48hrs-patient has received contrast: Start: 05/28/22 9:00:00 EST, Unscheduled, 48 hour(s), Stop: 05/30/22 8:59:00 EST, 05/28/22 8:38:00 EST No Vitamin E,clopidogrel (Plavix), 5 days before surgery: Start: 05/28/22 12:40:00 EST, Daily, 05/28/22 12:40:00 EST No prasugrel (Effient) 7 days before surgery: Start: 05/28/22 12:40:00 EST, Daily, 05/28/22 12:40:00 EST Peridex 0.12% oral rinse liquid: Start: 06/01/22 21:00:00 EST, Dose = 15 mL, Liq, Oral, BID, 2 dose(s), Stop: 06/02/22 9:00:00 EST, 06/01/22 21:00:00 EST aspirin 81 mg oral delayed release tablet: Start: 05/28/22 9:00:00 EST, Dose = 81 mg, = 1 tab(s), Oral, qDay, 0, 05/28/22 8:37:00 EST atorvastatin: Start: 05/28/22 22:00:00 EST, Dose = 40 mg, = 1 tab(s), Oral, qHS, 0, 05/28/22 8:37:00 EST insulin regular 100 unit(s) + Normal Saline 100 mL: Start: 06/02/22 6:00:00 EST, 18 hour(s), Stop date 06/02/22 23:59:00 EST, Infuse as directed for CVOR losartan: Start: 05/28/22 9:00:00 EST, Dose = 50 mg, = 1 tab(s), Oral, qDay, 05/28/22 8:37:00 EST melatonin: Start: 05/28/22 8:44:00 EST, Dose = 3 mg, = 1 tab(s), Oral, qHS, PRN, Sleep, 05/28/22 8:44:00 EST metoprolol succinate 25 mg oral TABLET extended release: Start: 06/01/22 13:47:00 EST, Dose = 25 mg, = 1 tab(s), Oral, qDay, give with food, 0, 06/01/22 13:47:00 EST mupirocin 2% topical ointment: Start: 05/28/22 12:40:00 EST, Dose = 1 james, Nostril, each, BID, Apply to: each nostril, 5 day(s), Stop: 06/02/22 9:00:00 EST, Ointment, 05/28/22 12:40:00 EST norepinephrine 8 mg + Normal Saline 250 mL: Start: 06/02/22 6:00:00 EST, 18 hour(s), Stop date 06/02/22 23:59:00 EST, Infuse as directed for CVOR tranexamic acid 1 gram(s): 06/02/22 6:00:00 EST, PMX bag, IV Piggyback, 18 hour(s), Physician Stop, Stop date 06/02/22 23:59:00 EST tranexamic acid 1 gram(s): 06/02/22 6:00:00 EST, PMX bag, IV Piggyback, 18 hour(s), Physician Stop, Stop date 06/02/22 23:59:00 EST tranexamic acid 1 gram(s): 06/02/22 6:00:00 EST, PMX bag, IV Piggyback, 18 hour(s), Physician Stop, Stop date 06/02/22 23:59:00 EST vancomycin IVPB: Start: 06/02/22 6:00:00 EST, Dose = 1,750 mg, = 500 mL, IV Piggyback, PREOP pharm, Rate: 285.71 mL/hr, Infuse over: 105 minute(s), 06/02/22 6:00:00 EST vancomycin: Start: 06/02/22 6:00:00 EST, Dose = 2 gram(s), = 40 mL, Miscellaneous, prep pharm, 12 hour(s), Stop: 06/02/22 17:59:00 EST, 0 Documented Medications Documented Multiple Vitamins oral tablet: Dose = 1 tab(s), Oral, Daily, # 30 tab(s), 0 Refill(s) aspirin 81 mg oral delayed release tablet: Dose : 81 mg = 1 tab(s), Oral, qDay, 0 Refill(s) losartan 50 mg oral tablet: Dose : 50 mg = 1 tab(s), Oral, qDay, 0 Refill(s) rosuvastatin 20 mg oral tablet: Dose : 20 mg = 1 tab(s), Oral, qDay, 0 Refill(s), Medications (24) Active Scheduled: (16) aspirin 81 mg EC 81 mg 1 tab(s), Oral, qDay atorvastatin 40 mg tablet 40 mg 1 tab(s), Oral, qHS cardioplegic [place] formula 1,052.8 mL, Miscellaneous, Once ceFAZolin syringe 2 gram(s) 20 mL, IV Push (INT), PREOP pharm cefuroxime 1.5 gram(s), Topical, PREOP pharm chlorhexidine topical 0.12% Liquid (60 mL) 15 mL, Oral, BID heparin 10,000 unit(s) 1 mL, Miscellaneous, PREOP pharm losartan 50 mg tablet 50 mg 1 tab(s), Oral, qDay metoprolol succinate 25 mg ER tablet 25 mg 1 tab(s), Oral, qDay multivitamin tablet 1 tab(s), Oral, Daily mupirocin 2% Ointment 22 Gram(s) tube 1 james, Nostril, each, BID No metformin for 48 hrs post contrast 1 EA, Miscellaneous, Unscheduled No prasugrel (Effient) 7 days before surgery 1 EA, Miscellaneous, Daily NO vitamin E, clopidogrel (Plavix) 5 days before surgery 1 EA, Miscellaneous, Daily vancomycin 1 g (50 mg/ml Dilution) 2 gram(s) 40 mL, Miscellaneous, prep pharm vancomycin PMX 1,750 mg 500 mL, IV Piggyback, PREOP pharm Continuous: (6) epinephrine 4 mg + Sodium Chloride 0.9% 250 mL 250 mL, Intravenous insulin regular 100 unit(s) + Sodium Chloride 0.9% 100 mL 100 mL, Intravenous norepinephrine 8 mg + Sodium Chloride 0.9% 250 mL 250 mL, Intravenous tranexamic acid PMX 1 gram(s) , IV Piggyback tranexamic acid PMX 1 gram(s) , IV Piggyback tranexamic acid PMX 1 gram(s) , IV Piggyback PRN: (2) albuterol - ipratropium 2.5 mg-0.5 mg/3 mL Inhal Dana UD 3 mL, Inhalation, q4hRT melatonin 3 mg tablet 3 mg 1 tab(s), Oral, qHS Problem list: Medical Aortic stenosis / SNOMED CT 274454077 / Confirmed Arthritis / SNOMED CT 2598982 / Confirmed Obesity (BMI 30-39.9) / SNOMED CT 254512620 / Confirmed CAD (coronary artery disease) / SNOMED CT 51939843 / Confirmed Family history of premature CAD / SNOMED CT 586309956 / Confirmed Hyperlipemia / SNOMED CT 15773770 / Confirmed Carotid stenosis, left / SNOMED CT 1030549619 / Confirmed Pre-diabetes / SNOMED CT 0864242256 / Confirmed, Active Problems (12) Aortic stenosis Aortic valve stenosis Arthritis CAD (coronary artery disease) Carotid stenosis, left Family history of premature CAD HTN (hypertension) Hyperlipemia Obesity Obesity (BMI 30-39.9) Pre-diabetes Tobacco use Histories Past Medical History: No active or resolved past medical history items have been selected or recorded. Family History: Cancer Grandparent Father Stroke Father Grandparent Heart attack Grandparent CABG - Coronary artery bypass graft Father Brother Diabetes Mother Procedure history: Echocardiogram ([id number]) on 04/21/2022 at 52 Years. Comments: 05/18/2022 10:33 EST - Dinorah Lemos RN 04/21/22 Summary: 1. Left ventricle: The cavity size is normal. Wall thickness is mildly increased. Systolic function is normal. The estimated ejection fraction is 55-60%. Wall motion is normal; there are no regional wall motion abnormalities. Unable to assess diastolic function. 2. Aortic valve: The valve is possibly bicuspid. The leaflets are moderately thickened and moderately calcified. There is severe stenosis. There is mild, 1+ regurgitation. The mean systolic gradient is 34 mm Hg. The peak systolic gradient is 57 mm Hg. The LVOT to aortic valve VTI ratio is 0.24. The valve area by peak velocity is 0.7 cm . 3. Mitral valve: The annulus is mildly to moderately calcified. 4. Left atrium: The atrium is mildly dilated. Cholecystectomy ([id number]). delivery ([id number]). Social History Social & Psychosocial Habits Alcohol 05/22/2022 Use: Past Tobacco 05/22/2022 Tobacco Use: 10 or more cigarettes (1/, Smoker, current status un Type: Cigarettes Tobacco use per day: 20 Number of years: 35 Total pack years: 1 Nutrition/Health 05/22/2022 Caffeine intake amount: coffee 5 cups daily . Physical Examination General: Alert and oriented. Airway: Normal temporomandibular joint mobility, Normal mouth, Normal throat, Normal neck range of motion, Trachea midline. Mallampati classification: II (soft palate, fauces, uvula visible). Head: Normocephalic. Dentition Evaluation: Intact, Own teeth, Denies loose/chipped teeth. Neck: Supple. Respiratory: Lungs are clear to auscultation, Respirations are non-labored. Cardiovascular: Normal rate, Regular rhythm, No murmur. Heart Sounds: Normal. Gastrointestinal: Soft. Musculoskeletal Normal range of motion. Integumentary: Intact, Warm, Dry. Neurologic: Alert, Oriented. Review / Management Results review: Lab results 06/02/2022 4:25 EST Temperature Oral 36.8 DegC Heart Rate Monitored 67 bpm Respiratory Rate 16 br/min Systolic Blood Pressure Non-Invasive 129 mmHg Diastolic Blood Pressure Non-Invasive 66 mmHg Mean Arterial Pressure (NBP) 85 mmHg Reason For Taking VItal Signs Routine Pain Scale Type 0-10 Pain scale Heart Sounds ICU Murmur, S1S2 Heart Rhythm Regular Oxygen Therapy Room air Oxygen Saturation 97 % 06/02/2022 2:03 EST Platelet 219 10^3/mcL Heparin dose (APTT) Unknown APTT 33.6 seconds Protime 10.6 seconds PT International Ratio 0.9 ratio NA Fibrinogen 365 mg/dL 06/01/2022 22:42 EST Temperature Oral 36.7 DegC Heart Rate Monitored 85 bpm Respiratory Rate 17 br/min Systolic Blood Pressure Non-Invasive 142 mmHg HI Diastolic Blood Pressure Non-Invasive 75 mmHg Mean Arterial Pressure (NBP) 94 mmHg Reason For Taking VItal Signs Routine Primary Pain Intensity 0 Primary Pain Nonverbal Response Nods No Pain Scale Type 0-10 Pain scale Nail Bed Color [place] Heart Sounds ICU Murmur, S1S2 Heart Rhythm Regular Dorsalis Pedis Pulse, Left 2+ Normal Dorsalis Pedis Pulse, Right 2+ Normal Radial Pulse, Left 2+ Normal Radial Pulse, Right 2+ Normal Cardiac Rhythm Sinus rhythm Monitoring Lead V1/MCL1, V6/MCL6 UT Interval 0.20 second(s) QRS Duration 0.11 second(s) QT Interval 0.42 second(s) QTc Interval 0.46 second(s) Alarms On and Functional Yes Heart Rate Alarm Set At - Low 50 Heart Rate Alarm Set At - High 120 Respirations Unlabored Respiratory Pattern Regular Breath Sounds Auscultated Anterior and posterior All Lobes Breath Sounds Clear, Diminished Oxygen Therapy Room air Oxygen Saturation 96 % Abdomen Description Non-distended Abdomen Palpation Non-Tender Bowel Sounds All Quadrants Present Urinary Elimination Voiding, no difficulties Facial Movement Symmetric resting/crying Skin Temperature Warm Skin Description Normal for ethnicity Skin Integrity Intact Skin Turgor Elastic Mucous Membrane Color [place] Mucous Membrane Description Moist Neurological Language Able to speak clearly, Follows simple commands Neurological Symptoms Patient denies Gait Steady Extremity Movement Equal Swallowing Difficulty None Characteristics of Communication Appropriate Characteristics of Speech Clear Facial Symmetry Symmetric Level of Consciousness Alert Aspiration Risk None KARLA Yes Left Pupil Description Regular Right Pupil Description Regular Left Pupil Reaction Brisk Right Pupil Reaction Brisk Pupil Size, Left 3 mm Pupil Size, Right 3 mm Strength All Extremities Strong Left Upper Extremity Sensation Intact Right Upper Extremity Sensation Intact Left Lower Extremity Sensation Intact Right Lower Extremity Sensation Intact CN V Facial Sensation Corneal reflex present CN VII Facial Expression and Symmetry Facial movement symmetrical CN VIII Hearing Spoken word equally audible left/right CN IX, X Swallowing, Gag Reflex Swallowing present Affect/Behavior Appropriate, Calm, Cooperative Orientation Oriented x 4, Follows simple commands Orientation Assessment Oriented x 4 Activity Status ADL Repositions self, Resting Standard Safety ID band on, Safety level maintained High Risk Safety Room check performed Demonstrates Correct Call Light Use Yes Appetite Good 06/01/2022 22:37 EST atorvastatin 40 mg mg chlorhexidine topical 15 mL mL mupirocin topical 1 james james 06/01/2022 22:00 EST Urine Count 1 EA 06/01/2022 21:21 EST Urinary Elimination Voiding, no difficulties IV Present Present Hand Right 06/01/2022 20 gauge Peripheral IV Activity: Assessed Peripheral IV Dressing Condition: Clean, Dry, Intact Peripheral IV Dressing Activity: Transparent dressing Peripheral IV Line Status/Patency: Flushes easily Peripheral IV Line Care: Alcohol port cap(s) in place Peripheral IV Site Condition: No complications 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 Patient Dressed In Hospital gown Pre-op Preparation Preop linens changed CHG Preoperative Wash/Wipe Night before procedure CHG Skin Prep Completed for Eligible Surgery 06/01/2022 20:55 EST Hand Right 06/01/2022 20 gauge Peripheral IV Activity: Assessed Peripheral IV Site Condition: No complications 06/01/2022 19:56 EST Temperature Oral 36.7 DegC Heart Rate Monitored 76 bpm Respiratory Rate 16 br/min Systolic Blood Pressure Non-Invasive 140 mmHg Diastolic Blood Pressure Non-Invasive 72 mmHg Reason For Taking VItal Signs Routine Primary Pain Intensity 0 Pain Scale Type 0-10 Pain scale Heart Sounds ICU Murmur, S1S2 (Modified) Heart Rhythm Regular Dorsalis Pedis Pulse, Left 2+ Normal Dorsalis Pedis Pulse, Right 2+ Normal Radial Pulse, Left 2+ Normal Radial Pulse, Right 2+ Normal Cardiac Rhythm Sinus rhythm Alarms On and Functional Yes Heart Rate Alarm Set At - Low 50 Heart Rate Alarm Set At - High 120 Respirations Unlabored Respiratory Pattern Regular Breath Sounds Auscultated Anterior and posterior All Lobes Breath Sounds Clear, Diminished Oxygen Therapy Room air Oxygen Saturation 97 % Abdomen Description Non-distended Abdomen Palpation Non-Tender Bowel Sounds All Quadrants Present Urinary Elimination Voiding, no difficulties Skin Description Normal for ethnicity Mucous Membrane Color [place] Mucous Membrane Description Moist Neurological Symptoms Patient denies Level of Consciousness Alert KARLA Yes Activity Status ADL Repositions self, Resting Standard Safety ID band on, Safety level maintained High Risk Safety Room check performed Demonstrates Correct Call Light Use Yes 06/01/2022 19:08 EST Antecubital Left 05/28/2022 20 gauge Peripheral IV Activity: Discontinued Hand Right 06/01/2022 20 gauge Peripheral IV Activity: Insert new site Peripheral IV Dressing Condition: Clean, Dry, Intact Peripheral IV Dressing Activity: Applied Peripheral IV Line Status/Patency: Flushes easily, 10ml normal saline flush, Aspirated, Good blood return 06/01/2022 18:57 EST ABO/Rh Interp A POS ABSC Interp (Gel) Negative ABSC Crossmatch, Immediate Spin Compatible Crossmatch, Immediate Spin Compatible 06/01/2022 18:37 EST Post Rehab Outcome Move forward to next step Cardiac Rehab - Phase I Cardiac Rehab - Phase I 06/01/2022 18:36 EST Violence Risk Confused No Violence Risk Irritable No Violence Risk Boisterous No Violence Risk Verbal Threats No Violence Risk Physical Threats No Violence Risk Attacking Objects No Violence Risk Predictor Score 0 Violence Risk Intervention None Violence Risk Current Interventions None Able To Drink Order Detail Yes Able To Sign Consents Order Detail Yes Code Status Order Detail Full code IV Order Detail Yes Dialysis Schedule Order Detail N/A Has Diabetes Order Detail No Isolation Precautions Order Detail None Nurse Collect Order Detail 0 Oxygen Order Detail Yes Order Detail No Prior Valve Replacement Order Detail No Transport Mode Order Detail Patient bed Physician Pediatrician Details Form Physician Pediatrician Details Form 06/01/2022 17:25 EST Tolerating Oral Intake Yes Feeding Assistance Independent Dinner Percent 75 % Adaptive Feeding Equipment None Appetite Good Eating Difficulties None 06/01/2022 17:08 EST Apical Heart Rate 75 bpm metoprolol 1 tab(s) tab(s) 06/01/2022 17:07 EST Heart Rate Monitored 75 bpm Respiratory Rate 20 br/min Systolic Blood Pressure Non-Invasive 154 mmHg HI Diastolic Blood Pressure Non-Invasive 82 mmHg Mean Arterial Pressure (NBP) 103 mmHg Reason For Taking VItal Signs Routine Primary Pain Intensity 0 Pain Scale Type 0-10 Pain scale Pain Scale Type 0-10 Pain scale Nail Bed Color [place] Heart Sounds ICU S1S2 Heart Rhythm Regular Dorsalis Pedis Pulse, Left 2+ Normal Dorsalis Pedis Pulse, Right 2+ Normal Posttibial Pulse, Left 2+ Normal Posttibial Pulse, Right 2+ Normal Radial Pulse, Left 2+ Normal Radial Pulse, Right 2+ Normal Cardiac Rhythm Sinus rhythm Respirations Unlabored Respiratory Pattern Regular Breath Sounds Auscultated Anterior and posterior All Lobes Breath Sounds Clear, Equal Cough None Oxygen Therapy Room air Oxygen Saturation 98 % Tracheal Position Midline Urinary Elimination Voiding, no difficulties Facial Movement Makes facial grimaces Neurological Language Able to speak clearly Neurological Symptoms Patient denies Gait Steady Extremity Movement Equal Swallowing Difficulty None Characteristics of Communication Appropriate Characteristics of Speech Clear Facial Symmetry Symmetric Level of Consciousness Alert Aspiration Risk None Eye Opening Response Nivia Spontaneously Best Motor Response Dalton Obeys simple commands Best Verbal Response Dalton Oriented Nivia Coma Score 15 KARLA Yes Left Pupil Description Regular Right Pupil Description Regular Left Pupil Reaction Brisk Right Pupil Reaction Brisk Pupil Size, Left 3 mm Pupil Size, Right 3 mm Strength All Extremities Strong Left Upper Extremity Sensation Intact Right Upper Extremity Sensation Intact Left Lower Extremity Sensation Intact Right Lower Extremity Sensation Intact CN V Facial Sensation Corneal reflex present CN VII Facial Expression and Symmetry Facial movement symmetrical CN IX, X Swallowing, Gag Reflex Swallowing present Affect/Behavior Appropriate, Calm, Cooperative Orientation Oriented x 4 Orientation Assessment Oriented x 4 Pt./Caregiver Remote Cont.Visual Monitor Verbalizes/Nonverbally indicates understanding Activity Status ADL Ambulating in ford, Ambulating in room, Awake Assistive Device None Standard Safety ID band on, Call device within reach, Bed in low position, Wheels locked, Upper/Half-Length side-rails up High Risk Safety Room check performed Demonstrates Correct Call Light Use Yes 06/01/2022 16:18 EST RBC Product Ready RBC Ready for Pickup 06/01/2022 15:18 EST Heart Rate Monitored 80 bpm Cardiac Rhythm Sinus rhythm Monitoring Lead V1/MCL1, V6/MCL6 UT Interval 0.17 second(s) QRS Duration 0.12 second(s) QT Interval 0.47 second(s) QTc Interval 0.52 second(s) Alarms On and Functional Yes Heart Rate Alarm Set At - Low 50 Heart Rate Alarm Set At - High 120 06/01/2022 14:57 EST Temperature Oral 36.6 DegC Heart Rate Monitored 75 bpm Respiratory Rate 18 br/min Systolic Blood Pressure Non-Invasive 125 mmHg Diastolic Blood Pressure Non-Invasive 75 mmHg Mean Arterial Pressure (NBP) 88 mmHg Reason For Taking VItal Signs Routine Oxygen Therapy Room air Oxygen Saturation 99 % 06/01/2022 14:17 EST Skin Assessment Verification Transfer 06/01/2022 14:15 EST Heart Rate Monitored 81 bpm Primary Pain Intensity 0 Primary Pain Nonverbal Response Nods No Pain Scale Type 0-10 Pain scale Heart Rhythm Regular Cardiac Rhythm Sinus rhythm Monitoring Lead V1/MCL1, V6/MCL6 Activity Status ADL Awake, Repositions self, Up ad bry Activity Assistance Independent Standard Safety ID band on, Call device within reach, Bed in low position, Wheels locked, Upper/Half-Length side-rails up, Phone within reach, personal items within reach, Visitor at bedside, Safety level maintained, Non-Slip footwear High Risk Safety Room located near nursing station, Room check performed Demonstrates Correct Call Light Use Yes 06/01/2022 14:00 EST Accompanied By Staff Monitor, Nurse Transfer Transfer to Transport via Bed Nursing Unit CVSD heparin Not Done: Physician Order (Not Done) 06/01/2022 13:48 EST Bed Status CVSD 0213 A Ready (Modified) 06/01/2022 12:23 EST Cardiology Progress Note Progress Note 06/01/2022 11:43 EST Discharge To, Anticipated Home independently Transition Planning Note Transition Planning Ongoing Assessment 06/01/2022 11:32 EST Temperature Oral 36.6 DegC Respiratory Rate 16 br/min Systolic Blood Pressure Non-Invasive 134 mmHg Diastolic Blood Pressure Non-Invasive 69 mmHg Mean Arterial Pressure (NBP) 90 mmHg Reason For Taking VItal Signs Routine Oxygen Therapy Room air Oxygen Saturation 95 % 06/01/2022 11:28 EST Heart Rate Monitored 81 bpm Oxygen Therapy Room air 06/01/2022 10:30 EST Heart Rate Monitored 72 bpm Reason For Taking VItal Signs Routine Primary Pain Intensity 0 Primary Pain Nonverbal Response Nods No Pain Scale Type 0-10 Pain scale Monitor Alarms On and Limits Checked Nail Bed Color [place] Capillary Refill < 2 seconds Heart Sounds ICU Murmur, S1S2 Heart Rhythm Regular Radial Pulse, Left 2+ Normal Radial Pulse, Right 2+ Normal Cardiac Rhythm Sinus rhythm Monitoring Lead III, V1/MCL1 UT Interval 0.14 second(s) QRS Duration 0.09 second(s) QT Interval 0.41 second(s) QTc Interval 0.38 second(s) Alarms On and Functional Yes Heart Rate Alarm Set At - Low 50 Heart Rate Alarm Set At - High 120 Respirations Unlabored Respiratory Pattern Regular Breath Sounds Auscultated Anterior and posterior All Lobes Breath Sounds Clear Oxygen Therapy Room air Urinary Elimination Voiding, no difficulties Skin Symptoms Bruising All Extremity Description [place], Normal for ethnicity Skin Temperature Warm Temperature All Extremities Warm Skin Description Dry Skin Integrity Intact Skin Turgor Elastic Mucous Membrane Color [place] Mucous Membrane Description Moist Neurological Symptoms Patient denies Level of Consciousness Alert KARLA Yes Strength All Extremities Strong Left Upper Extremity Sensation Intact Right Upper Extremity Sensation Intact Left Lower Extremity Sensation Intact Right Lower Extremity Sensation Intact Activity Status ADL Awake Beds/Devices Hospital bed Activity Assistance Independent Assistive Device None Standard Safety ID band on, Allergy Band on, Call device within reach, Bed in low position, Wheels locked, Upper/Half-Length side-rails up High Risk Safety Room check performed Demonstrates Correct Call Light Use Yes 06/01/2022 8:27 EST Post Rehab Outcome Not Done: See ICU flow (Not Done) Martínez Screen Daily History of Fall in Last 3 Months Martínez No Presence of Secondary Diagnosis Martínez Yes Use of Ambulatory Aid Martínez None, bedrest, wheelchair, nurse IV/PRN Adapter Fall Risk Martínez No Gait Weak or Impaired Fall Risk Martínez Normal, bedrest, immobile Mental Status Fall Risk Martínez Oriented to own ability Martínez Fall Risk Score 15 Violence Risk Confused No Violence Risk Irritable No Violence Risk Boisterous No Violence Risk Verbal Threats No Violence Risk Physical Threats No Violence Risk Attacking Objects No Violence Risk Predictor Score 0 Violence Risk Intervention None Violence Risk Current Interventions None BMAT Existing Patient Condition/Safety No order for Strict Bedrest BMAT Level 1: Sit and Shake Sit, side bed/reach midline/shake hands BMAT Level 2: Stretch and Point Seated position, straighten 1 knee; Flex ankle & point toes BMAT Level 3: Stand Stand up w/o assist/Use of assist device BMAT Level 4: Walk March in place; step forward & back each foot BMAT Mobility Level 4 CHG Preoperative Wash/Wipe Daily CHG bath Individuals Taught Patient Learning Readiness Willing to learn Barriers to Learning None evident Teaching Method Explanation Teaching Evaluation Verbalizes/Nonverbally indicates understanding Bed Bath Independent Hair Care Independent Oral Care Independent Ellen Care Independent Linen Change Done Standard Safety ID band on, Allergy Band on, Call device within reach, Bed in low position, Wheels locked, Upper/Half-Length side-rails up High Risk Safety Room check performed Able To Drink Order Detail Yes Able To Sign Consents Order Detail Yes Code Status Order Detail Full code IV Order Detail Yes Dialysis Schedule Order Detail N/A Has Diabetes Order Detail No Isolation Precautions Order Detail None Nurse Collect Order Detail 0 Oxygen Order Detail No Order Detail No Prior Valve Replacement Order Detail No Transport Mode Order Detail Patient bed Education Topics Fall Prevention Alarms, Assistive equipment use, Bed height/stabilization, Conventional call light use, Don't use IV pole for support, Environmental management Cardiac Rehab - Phase I Not Done (Not Done) Physician Pediatrician Details Form Physician Pediatrician Details Form 06/01/2022 8:17 EST aspirin 81 mg mg heparin 5,000 unit(s) unit(s) losartan 50 mg mg multivitamin 1 tab(s) tab(s) mupirocin topical 1 james james 06/01/2022 5:29 EST Heart Rate Monitored 77 bpm Respiratory Rate 16 br/min Systolic Blood Pressure Non-Invasive 142 mmHg HI Diastolic Blood Pressure Non-Invasive 72 mmHg Mean Arterial Pressure (NBP) 97 mmHg Reason For Taking VItal Signs Routine Primary Pain Intensity 0 Primary Pain Nonverbal Response Nods No Pain Scale Type 0-10 Pain scale Monitor Alarms On and Limits Checked Nail Bed Color [place] Capillary Refill < 2 seconds Heart Sounds ICU Murmur, S1S2 Heart Rhythm Regular Dorsalis Pedis Pulse, Left 2+ Normal Dorsalis Pedis Pulse, Right 2+ Normal Posttibial Pulse, Left 1+ Thready Posttibial Pulse, Right 1+ Thready Radial Pulse, Left 2+ Normal Radial Pulse, Right 2+ Normal Cardiac Rhythm Sinus rhythm Monitoring Lead III, V1/MCL1 UT Interval 0.16 second(s) QRS Duration 0.11 second(s) QT Interval 0.38 second(s) QTc Interval 0.36 second(s) Alarms On and Functional Yes Heart Rate Alarm Set At - Low 50 Heart Rate Alarm Set At - High 120 Respirations Unlabored Respiratory Pattern Regular Breath Sounds Auscultated Anterior and posterior All Lobes Breath Sounds Clear Cough and Deep Breathe Done Cough None Oxygen Therapy Room air Oxygen Saturation 96 % Abdomen Description Soft Abdomen Palpation Non-Tender, Soft Passing Flatus Yes Bowel Continence No bowel movement Swallowing Disorder None Bowel Sounds All Quadrants Present Urinary Elimination Voiding, no difficulties Facial Movement Makes facial grimaces Skin Symptoms Bruising All Extremity Description [place], Normal for ethnicity Skin Temperature Warm Temperature All Extremities Warm Skin Description Dry Skin Integrity Intact Skin Turgor Elastic Mucous Membrane Color [place] Mucous Membrane Description Moist Neurological Language Able to speak clearly Neurological Symptoms Patient denies Gait Steady Extremity Movement Equal Swallowing Difficulty None Characteristics of Communication Appropriate Characteristics of Speech Clear Facial Symmetry Symmetric Level of Consciousness Alert Aspiration Risk None KARLA Yes Left Pupil Description Regular, Round Right Pupil Description Regular, Round Left Pupil Reaction Brisk Right Pupil Reaction Brisk Pupil Size, Left 3 mm Pupil Size, Right 3 mm Strength All Extremities Strong Left Upper Extremity Sensation Intact Right Upper Extremity Sensation Intact Left Lower Extremity Sensation Intact Right Lower Extremity Sensation Intact CN V Facial Sensation Corneal reflex present CN VII Facial Expression and Symmetry Facial movement symmetrical CN VIII Hearing Spoken word equally audible left/right CN IX, X Swallowing, Gag Reflex Swallowing present Affect/Behavior Appropriate, Calm, Cooperative Orientation Oriented x 4 Orientation Assessment Oriented x 4 Memory Recall Ability Current season Activity Status ADL Awake Beds/Devices Hospital bed Activity Assistance Independent Assistive Device None Standard Safety ID band on, Allergy Band on, Call device within reach, Bed in low position, Wheels locked High Risk Safety Room check performed Demonstrates Correct Call Light Use Yes Appetite Good Eating Difficulties None Stool Count 0 EA 06/01/2022 3:52 EST Able To Drink Order Detail Yes Able To Sign Consents Order Detail Yes Code Status Order Detail Full code IV Order Detail Yes Dialysis Schedule Order Detail N/A Has Diabetes Order Detail No Isolation Precautions Order Detail None Nurse Collect Order Detail 0 Oxygen Order Detail No Order Detail No Prior Valve Replacement Order Detail No Transport Mode Order Detail Patient bed Physician Pediatrician Details Form Physician Pediatrician Details Form 06/01/2022 2:28 EST Heart Rate Monitored 78 bpm Standard Safety ID band on, Call device within reach, Bed in low position, Wheels locked, Upper/Half-Length side-rails up, Phone within reach, personal items within reach, Safety level maintained, Hazards removed from floor, Non-Slip footwear Demonstrates Correct Call Light Use Yes 06/01/2022 0:17 EST Heart Rate Monitored 60 bpm Standard Safety ID band on, Call device within reach, Bed in low position, Wheels locked, Upper/Half-Length side-rails up, Phone within reach, personal items within reach, Safety level maintained, Hazards removed from floor, Non-Slip footwear Demonstrates Correct Call Light Use Yes . Assessment and Plan [employer] (ASA) physical status classification: Class IV. Anesthetic Preoperative Plan Premedication: intravenous. Anesthetic technique: General. Induction: intravenously. Maintenance airway: Oral endotracheal tube. Special techniques: Warming device. Special Monitoring: Arterial line, Central venous catheter, Pulmonary artery catheter, Continuous cardiac output, Continuous transesophageal echocardiogram. Postoperative pain management: Per surgeon. Risks discussed: nausea, vomiting, headache, sore throat, dental injury, hypotension, allergic reaction, serious complications. Informed consent: signed by patient. Beta Hans: Beta Hans Taken Within 24 Hrs: Yes. Digitally Signed by MARIAH BECKER DO on 06/02/2022 06:11 AM Digitally Signed by MARIAH BECKER DO on 06/02/2022 06:13 AM [facility] 06-01-2022 Cardiology Progre ss note Date of Service 06/01/2022 Chief Complaint Exertional shortness of breath Subjective No significant overnight events. Patient remains chest pain-free. Objective Vitals and Measurements T: 36.6 C (Oral) TMIN: 36.2 C (Oral) TMAX: 36.6 C (Oral) HR: 81(Monitored) RR: 16 BP: 134/69 SpO2: 95% Intake and Output 7AM Yesterday to 7AM Today Intake and Output (Last 24 hours) Intake Oral Intake 3200.00 Output Urine Voided 2700.00 Stool Count 2.00 Total Summary Total Intake 3200.00 Total Output 2700.00 Fluid Balance 500.00 Physical Exam General Appearance: in no acute distress. Alert. EENT: No thyroid disease. ocular movements intact Cardiac: RRR. S1 and S2. Systolic murmur noted Lungs: Clear breath sounds. No wheeze or crackles noted. Abdomen: soft. non tender. bowel sounds audible Neurological: alert and oriented. Skin: warm. dry Weight Current Weight Dosing Weight: 111.8 kg (05/28/22) Current Weight: 111.3 kg (05/30/22) Current Weight: 111.6 kg (05/29/22) Medications Medications (11) Active Scheduled: (9) aspirin 81 mg EC 81 mg 1 tab(s), Oral, qDay atorvastatin 40 mg tablet 40 mg 1 tab(s), Oral, qHS heparin 5,000 units/mL (1 mL) vial 5,000 unit(s) 1 mL, Subcutaneous, q8h losartan 50 mg tablet 50 mg 1 tab(s), Oral, qDay multivitamin tablet 1 tab(s), Oral, Daily mupirocin 2% Ointment 22 Gram(s) tube 1 james, Nostril, each, BID No metformin for 48 hrs post contrast 1 EA, Miscellaneous, Unscheduled No prasugrel (Effient) 7 days before surgery 1 EA, Miscellaneous, Daily NO vitamin E, clopidogrel (Plavix) 5 days before surgery 1 EA, Miscellaneous, Daily Continuous: (0) PRN: (2) albuterol - ipratropium 2.5 mg-0.5 mg/3 mL Inhal Dana UD 3 mL, Inhalation, q4hRT melatonin 3 mg tablet 3 mg 1 tab(s), Oral, qHS Lab Results No 36 Hour Lab Data EKG No qualifying data available. Assessment/Plan 1. CAD (coronary artery disease) EF 55-60% 2. Aortic stenosis 3. Pre-diabetes Hgb A1c 6.1% 4. HTN (hypertension) 5. Hyperlipemia 6. Arthritis 7. Tobacco use 8. Family history of premature CAD 9. Obesity (BMI 30-39.9) 10. Carotid stenosis, left Multivessel coronary artery disease Moderate to severe aortic stenosis Hypertension Hyperlipidemia Tobacco use Arthritis This is a 52-year-old morbidly obese female who was recently diagnosed with moderate to severe aortic stenosis noted on echocardiogram. This was initially done for exertional shortness of breath. She presents to the hospital for elective left heart catheterization. Heart catheterization showed severe coronary artery disease in LAD and RCA. ANDRE also shows moderate to severe aortic stenosis Continue aspirin and statin and metoprolol. Patient scheduled for CABG and valve replacement tomorrow. Continue losartan for hypertension. Digitally Signed by MICHELLE ESPINOSA MD on 06/01/2022 01:47 PM [facility] 06-01-2022 Cardiology Progre ss note Date of Service 05/31/2022 Chief Complaint Exertional shortness of breath Subjective No significant overnight events Objective Vitals and Measurements T: 36.4 C (Oral) TMIN: 36.4 C (Oral) TMAX: 36.6 C (Oral) HR: 71(Monitored) RR: 18 BP: 148/78 SpO2: 97% Intake and Output 7AM Yesterday to 7AM Today Intake and Output (Last 24 hours) Intake Oral Intake 800.00 Supplement Intake 90.00 Output Urine Voided 3250.00 Total Summary Total Intake 890.00 Total Output 3250.00 Fluid Balance -2360.00 Physical Exam General Appearance: in no acute distress. Alert. EENT: No thyroid disease. ocular movements intact Cardiac: RRR. S1 and S2. Systolic murmur noted Lungs: Clear breath sounds. No wheeze or crackles noted. Abdomen: soft. non tender. bowel sounds audible Neurological: alert and oriented. Skin: warm. dry Weight Current Weight Dosing Weight: 111.8 kg (05/28/22) Current Weight: 111.3 kg (05/30/22) Current Weight: 111.6 kg (05/29/22) Medications Medications (11) Active Scheduled: (9) aspirin 81 mg EC 81 mg 1 tab(s), Oral, qDay atorvastatin 40 mg tablet 40 mg 1 tab(s), Oral, qHS heparin 5,000 units/mL (1 mL) vial 5,000 unit(s) 1 mL, Subcutaneous, q8h losartan 50 mg tablet 50 mg 1 tab(s), Oral, qDay multivitamin tablet 1 tab(s), Oral, Daily mupirocin 2% Ointment 22 Gram(s) tube 1 james, Nostril, each, BID No metformin for 48 hrs post contrast 1 EA, Miscellaneous, Unscheduled No prasugrel (Effient) 7 days before surgery 1 EA, Miscellaneous, Daily NO vitamin E, clopidogrel (Plavix) 5 days before surgery 1 EA, Miscellaneous, Daily Continuous: (0) PRN: (2) albuterol - ipratropium 2.5 mg-0.5 mg/3 mL Inhal Dana UD 3 mL, Inhalation, q4hRT melatonin 3 mg tablet 3 mg 1 tab(s), Oral, qHS Lab Results No 36 Hour Lab Data EKG No qualifying data available. Assessment/Plan Multivessel coronary artery disease Severe aortic stenosis Hypertension Hyperlipidemia Tobacco use Arthritis This is a 52-year-old morbidly obese female who was recently diagnosed with moderate to severe aortic stenosis noted on echocardiogram. This was initially done for exertional shortness of breath. She presents to the hospital for elective left heart catheterization. Heart catheterization shows severe CAD in LAD and RCA. CT surgery has been consulted for their recommendations. Continue aspirin statin and we will add low-dose metoprolol. Heart catheterization concerning for severe aortic stenosis. Patient underwent ANDRE today. Await report. Patient will undergo valve replacement along with her bypass. Continue losartan for hypertension. Digitally Signed by MICHELLE ESPINOSA MD on 05/31/2022 04:55 PM [facility] 06-01-2022 Note ORIGINAL EXAMINATION: CTA OF THE NECK 05/31/2022 8:29 pm TECHNIQUE: CTA of the neck was performed with the administration of intravenous contrast. Multiplanar reformatted images are provided for review. MIP images are provided for review. Stenosis of the internal carotid arteries measured using NASCET criteria. Automated exposure control, iterative reconstruction, and/or weight based adjustment of the mA/kV was utilized to reduce the radiation dose to as low as reasonably achievable. COMPARISON: None. HISTORY: ORDERING SYSTEM PROVIDED HISTORY: Reason for Exam: left carotid stenosis FINDINGS: AORTIC ARCH/ARCH VESSELS: No dissection or arterial injury. No significant stenosis of the brachiocephalic or subclavian arteries. CAROTID ARTERIES: Mild atherosclerotic plaque formation is present at each carotid bulb and at the proximal segment of each internal carotid artery. No stenosis is present on the right. There is 30% stenosis for short segment of the proximal left internal carotid artery. No dissection, arterial injury, or hemodynamically significant stenosis by NASCET criteria. VERTEBRAL ARTERIES: No dissection, arterial injury, or significant stenosis. The right vertebral artery is dominant. Vertebral arteries join to form the basilar artery. SOFT TISSUES: The lung apices are clear. No cervical or superior mediastinal lymphadenopathy. The larynx and pharynx are unremarkable. No acute abnormality of the salivary and thyroid glands. BONES: No acute osseous abnormality. IMPRESSION: Mild carotid atherosclerotic plaque formation. 30% stenosis for short segment in proximal left internal carotid artery. No hemodynamically significant stenosis of carotid or vertebral arteries in the neck. Interpreted by: James Barron MD Preliminary Report By: James Barron MD Electronically signed By James Barron MD Dictated Date: 06/01/2022 12:56:13 AM Prelim Date: 06/01/2022 1:02:31 AM Sign Date: 06/01/2022 1:02:31 AM Ordering Provider: [facility] 05-31-2022 Note ORIGINAL EXAMINATION: CTA OF THE NECK 05/31/2022 8:29 pm TECHNIQUE: CTA of the neck was performed with the administration of intravenous contrast. Multiplanar reformatted images are provided for review. MIP images are provided for review. Stenosis of the internal carotid arteries measured using NASCET criteria. Automated exposure control, iterative reconstruction, and/or weight based adjustment of the mA/kV was utilized to reduce the radiation dose to as low as reasonably achievable. COMPARISON: None. HISTORY: ORDERING SYSTEM PROVIDED HISTORY: Reason for Exam: left carotid stenosis FINDINGS: AORTIC ARCH/ARCH VESSELS: No dissection or arterial injury. No significant stenosis of the brachiocephalic or subclavian arteries. CAROTID ARTERIES: Mild atherosclerotic plaque formation is present at each carotid bulb and at the proximal segment of each internal carotid artery. No stenosis is present on the right. There is 30% stenosis for short segment of the proximal left internal carotid artery. No dissection, arterial injury, or hemodynamically significant stenosis by NASCET criteria. VERTEBRAL ARTERIES: No dissection, arterial injury, or significant stenosis. The right vertebral artery is dominant. Vertebral arteries join to form the basilar artery. SOFT TISSUES: The lung apices are clear. No cervical or superior mediastinal lymphadenopathy. The larynx and pharynx are unremarkable. No acute abnormality of the salivary and thyroid glands. BONES: No acute osseous abnormality. IMPRESSION: Mild carotid atherosclerotic plaque formation. 30% stenosis for short segment in proximal left internal carotid artery. No hemodynamically significant stenosis of carotid or vertebral arteries in the neck. Interpreted by: James Barron MD Preliminary Report By: James Barron MD Electronically signed By James Barron MD Dictated Date: 06/01/2022 12:56:13 AM Prelim Date: 06/01/2022 1:02:31 AM Sign Date: 06/01/2022 1:02:31 AM Ordering Provider: [facility] 05-31-2022 [facility] note Date of Service 05/31/2022 Chief Complaint Exertional shortness of breath Subjective No significant overnight events Objective Vitals and Measurements T: 36.4 C (Oral) TMIN: 36.4 C (Oral) TMAX: 36.6 C (Oral) HR: 71(Monitored) RR: 18 BP: 148/78 SpO2: 97% Intake and Output 7AM Yesterday to 7AM Today Intake and Output (Last 24 hours) Intake Oral Intake 800.00 Supplement Intake 90.00 Output Urine Voided 3250.00 Total Summary Total Intake 890.00 Total Output 3250.00 Fluid Balance -2360.00 Physical Exam General Appearance: in no acute distress. Alert. EENT: No thyroid disease. ocular movements intact Cardiac: RRR. S1 and S2. Systolic murmur noted Lungs: Clear breath sounds. No wheeze or crackles noted. Abdomen: soft. non tender. bowel sounds audible Neurological: alert and oriented. Skin: warm. dry Weight Current Weight Dosing Weight: 111.8 kg (05/28/22) Current Weight: 111.3 kg (05/30/22) Current Weight: 111.6 kg (05/29/22) Medications Medications (11) Active Scheduled: (9) aspirin 81 mg EC 81 mg 1 tab(s), Oral, qDay atorvastatin 40 mg tablet 40 mg 1 tab(s), Oral, qHS heparin 5,000 units/mL (1 mL) vial 5,000 unit(s) 1 mL, Subcutaneous, q8h losartan 50 mg tablet 50 mg 1 tab(s), Oral, qDay multivitamin tablet 1 tab(s), Oral, Daily mupirocin 2% Ointment 22 Gram(s) tube 1 james, Nostril, each, BID No metformin for 48 hrs post contrast 1 EA, Miscellaneous, Unscheduled No prasugrel (Effient) 7 days before surgery 1 EA, Miscellaneous, Daily NO vitamin E, clopidogrel (Plavix) 5 days before surgery 1 EA, Miscellaneous, Daily Continuous: (0) PRN: (2) albuterol - ipratropium 2.5 mg-0.5 mg/3 mL Inhal Dana UD 3 mL, Inhalation, q4hRT melatonin 3 mg tablet 3 mg 1 tab(s), Oral, qHS Lab Results No 36 Hour Lab Data EKG No qualifying data available. Assessment/Plan Multivessel coronary artery disease Severe aortic stenosis Hypertension Hyperlipidemia Tobacco use Arthritis This is a 52-year-old morbidly obese female who was recently diagnosed with moderate to severe aortic stenosis noted on echocardiogram. This was initially done for exertional shortness of breath. She presents to the hospital for elective left heart catheterization. Heart catheterization shows severe CAD in LAD and RCA. CT surgery has been consulted for their recommendations. Continue aspirin statin and we will add low-dose metoprolol. Heart catheterization concerning for severe aortic stenosis. Patient underwent ANDRE today. Await report. Patient will undergo valve replacement along with her bypass. Continue losartan for hypertension. Digitally Signed by MICHELLE ESPINOSA MD on 05/31/2022 04:55 PM [facility] 05-31-2022 Cardiology Progre ss note Date of Service 05/30/2022 Chief Complaint Coronary artery disease Severe aortic stenosis Subjective Patient sitting comfortably in her bed. She denied any chest pain or shortness of breath. Patient is scheduled for ANDRE tomorrow as a work-up for CABG plus SAVR. Left heart catheterization done on 05/28/2022 1. LAD: Proximal vessel lesion: There is a 60% stenosis. Mid-vessel lesion: There is a 90% stenosis. 2. Left circumflex: Mid-vessel lesion: There is a 50% stenosis. 3. Right coronary: Proximal vessel lesion: There is an 80% stenosis. Mid-vessel lesion: There is an 80% stenosis. IMPRESSIONS: Severe CAD in LAD and RCA. Known severe . RECOMMENDATIONS: CT surgery evaluation for CABG with AVR. Echocardiogram done on 04/21/2022 1. Left ventricle: The cavity size is normal. Wall thickness is mildly increased. Systolic function is normal. The estimated ejection fraction is 55-60%. Wall motion is normal; there are no regional wall motion abnormalities. Unable to assess diastolic function. 2. Aortic valve: The valve is possibly bicuspid. The leaflets are moderately thickened and moderately calcified. There is severe stenosis. There is mild, 1+ regurgitation. The mean systolic gradient is 34 mm Hg. The peak systolic gradient is 57 mm Hg. The LVOT to aortic valve VTI ratio is 0.24. The valve area by peak velocity is 0.7 cm . 3. Mitral valve: The annulus is mildly to moderately calcified. 4. Left atrium: The atrium is mildly dilated Objective Vitals and Measurements T: 36.8 C (Oral) TMIN: 36.5 C (Oral) TMAX: 36.9 C (Oral) HR: 81(Monitored) RR: 18 BP: 136/68 SpO2: 94% WT: 111.3 kg Intake and Output 7AM Yesterday to 7AM Today Intake and Output (Last 24 hours) Intake Oral Intake 200.00 Supplement Intake 270.00 Output Total Summary Total Intake 470.00 Total Output 0.00 Fluid Balance 470.00 Physical Exam General Appearance: Comfortable, not in acute distress HEENT:Bilateral normal eye movements, normal oral cavity Neck: No JVD noted Cardiac: S1, severe systolic murmur appreciated in the aortic area Lungs: No wheezes, normal chest expansion. Abdomen: No tenderness, no distention, normal bowel sounds. Musculoskeletal: No signs of acute synovitis. Neurological: Alert and oriented x3, no focal neurological deficits grossly. Extremities: no lower extremity edema, no crackles, no JVP distention, warm extremities. Psychiatric: Appropriate, normal mood. Weight Current Weight Dosing Weight: 111.8 kg (05/28/22) Current Weight: 111.3 kg (05/30/22) Current Weight: 111.6 kg (05/29/22) Medications Medications (11) Active Scheduled: (9) aspirin 81 mg EC 81 mg 1 tab(s), Oral, qDay atorvastatin 40 mg tablet 40 mg 1 tab(s), Oral, qHS heparin 5,000 units/mL (1 mL) vial 5,000 unit(s) 1 mL, Subcutaneous, q8h losartan 50 mg tablet 50 mg 1 tab(s), Oral, qDay multivitamin tablet 1 tab(s), Oral, Daily mupirocin 2% Ointment 22 Gram(s) tube 1 james, Nostril, each, BID No metformin for 48 hrs post contrast 1 EA, Miscellaneous, Unscheduled No prasugrel (Effient) 7 days before surgery 1 EA, Miscellaneous, Daily NO vitamin E, clopidogrel (Plavix) 5 days before surgery 1 EA, Miscellaneous, Daily Continuous: (0) PRN: (2) albuterol - ipratropium 2.5 mg-0.5 mg/3 mL Inhal Dana UD 3 mL, Inhalation, q4hRT melatonin 3 mg tablet 3 mg 1 tab(s), Oral, qHS Lab Results 05/29 04:33 WBC: 7.4 Hgb: 13.4 Hct: 40.4 Platelet: 231 Neutrophil %: 56.7 Glucose Level: 112 H Sodium Level: 142 Potassium Level: 4.5 BUN: 17.0 Creatinine Lvl (s): 0.93 EKG EKG - Completed -- 05/28/22 8:44:00 EST Assessment/Plan 52-year-old morbidly obese female with significant past medical history of recently discovered moderate to severe aortic stenosis, suspected CAD, systemic hypertension, dyslipidemia, tobacco use, and osteoarthritis who presented to [facility] on 05/28/2022 for elective left heart catheterization. ASSESSMENT # Coronary artery disease # Severe aortic stenosis # Systemic hypertension # Dyslipidemia # Tobacco use # Osteoarthritis Plan Patient admitted, CT surgery following the patient. Patient scheduled for ANDRE on Tuesday morning CT surgery evaluating Continue with aspirin, atorvastatin DVT prophylaxis Heparin 5000 units every 8 hours Digitally Signed by SONAM BECK MD on 05/30/2022 08:47 AM [facility] 05-31-2022 Cardiothoracic surgery Consult note Date of Service 05/28/2022 Reason for Consultation Moderate to severe aortic stenosis, severe LAD and RCA disease, eval for CABG evaluation Referring Physician Dr. Celeste History of Present Illness This is a split/shared visit with Dr. Collazo. This is a 52-year-old female with past medical history of hypertension, hyperlipidemia, arthritis, and tobacco use. She has history of familial premature heart disease in her father having an HI at the age of 46 and brother undergoing CABG x3 at the age of 43. Over the past couple of years, she has been experiencing midsternal chest pressure that was related to hypertension. She states her blood pressures were typically in the 180'2/120's. She does endorse chronic dyspnea with physical exertion. Denies any syncope, PND, orthopnea, or peripheral edema. She was seen and evaluated by her primary care doctor and started on lisinopril which caused a dry nonproductive cough therefore she was switched to losartan. She had an echocardiogram completed by her primary care doctor on April 21, 2022 showing an EF of 55 to 60%, possible bicuspid aortic valve with severe aortic valve stenosis and mild aortic valve regurgitation (mean systolic gradient 34 mmHg, peak systolic gradient 57 mmHg valve area by peak velocity 0.7 cm ). She was referred to Dr. Celeste for further evaluation of aortic stenosis. She presents today for a heart catheterization which showed 60% stenosis of the proximal LAD, and 90% stenosis of the mid LAD, 50% stenosis of the left circumflex, 80% stenosis of the proximal and mid RCA. Cardiothoracic surgery has been consulted for surgical myocardial vascularization and aortic valve replacement. Patient does not take anticoagulants. STS risk assessment for CABG + AVR: Risk of Mortality: 1.754% Renal Failure: 1.427% Permanent Stroke: 1.379% Prolonged Ventilation: 5.949% DSW Infection: 0.245% Reoperation: 2.698% Morbidity or Mortality: 10.559% Short Length of Stay: 43.404% Long Length of Stay: 4.040% Review of Systems Constitutional: Denies fever, chills, weight loss, weight gain HEENT: Wears glasses, edentulous with upper and lower dentures; denies blurred vision, dysphagia, hearing loss Respiratory: See HPI CV: See HPI Vascular: Varicose veins (right greater than left), denies any claudication, nonhealing ulcers, DVTs GI: Denies nausea, vomiting, constipation, diarrhea : Denies dysuria, hematuria Neuro: Denies weakness, seizures, numbness or tingling Endo: Denies heat/cold intolerance, hair loss, polyuria hemo/oncology: Denies bleeding, bruising, lymphadenopathy Muscular/skeletal: Arthralgia of lower back; denies leg cramps, joint stiffness Psych: Positive depression; denies anxiousness or suicidal ideations Physical Exam Vitals and Measurements T: 36.4 C (Oral) TMIN: 36.0 C (Oral) TMAX: 36.4 C (Oral) HR: 82(Monitored) RR: 20 BP: 130/67 SpO2: 94% HT: 175 cm WT: 111.8 kg Weight Dosing Weight: 111.8 kg (05/28/22) Constitutional: Alert, oriented x4, appropriate HEENT: Normocephalic, atraumatic, edentulous with upper and lower dentures, neck supple, negative JVD, right carotid bruit, no JVD Lungs: Unlabored respirations, lung sounds clear And diminished bilaterally, SPO2 94 to 98% on room air Heart: Normal sinus rhythm, S1-S2, systolic heart murmur, no rub, heart rate ranging 75-84 Abdomen: Obese, nontender, bowel sounds present, No bowel movement Extremities: Well perfused, pedal pulses +2 bilaterally, no lower leg edema; bilateral radial pulses +2, no upper extremity edema; varicose veins of bilateral lower extremities Integumentary: Intact, no rashes Neuro: Cranial nerves II through VIII intact Lab Results 05/28 10:47 WBC: 10.1 Hgb: 13.5 Hct: 40.7 Platelet: 246 Neutrophil %: 67.8 Glucose Level: 90 Sodium Level: 141 Potassium Level: 4.7 BUN: 14.0 Creatinine Lvl (s): 0.82 05/28 07:04 Glucose Level: 108 Sodium Level: 142 Potassium Level: 4.4 BUN: 15.0 Creatinine Lvl (s): 0.85 Imaging Results and Diagnostics ECHO Summary: 1. Left ventricle: The cavity size is normal. Wall thickness is mildly increased. Systolic function is normal. The estimated ejection fraction is 55-60%. Wall motion is normal; there are no regional wall motion abnormalities. Unable to assess diastolic function. 2. Aortic valve: The valve is possibly bicuspid. The leaflets are moderately thickened and moderately calcified. There is severe stenosis. There is mild, 1+ regurgitation. The mean systolic gradient is 34 mm Hg. The peak systolic gradient is 57 mm Hg. The LVOT to aortic valve VTI ratio is 0.24. The valve area by peak velocity is 0.7 cm . 3. Mitral valve: The annulus is mildly to moderately calcified. 4. Left atrium: The atrium is mildly dilated [1] CARDIAC CATH SUMMARY: 1. LAD: Proximal vessel lesion: There is a 60% stenosis. Mid-vessel lesion: There is a 90% stenosis. 2. Left circumflex: Mid-vessel lesion: There is a 50% stenosis. 3. Right coronary: Proximal vessel lesion: There is an 80% stenosis. Mid-vessel lesion: There is an 80% stenosis. IMPRESSIONS: Severe CAD in LAD and RCA. Known severe . RECOMMENDATIONS: CT surgery evaluation for CABG with AVR [2] Assessment/Plan 1. CAD (coronary artery disease) EF 55-60% Surgical work-up in process. Surgical evaluation pending by Dr. Collazo. Currently in normal sinus rhythm. On Aspirin, atorvastatin 2. Aortic stenosis Echocardiogram from 04/21/2022 revealing possible bicuspid aortic valve with severe aortic valve stenosis and mild 1+ aortic valve regurgitation. Mean systolic gradient 34 mmHg, peak systolic gradient 57 mmHg, and valve area by peak velocity 0.7 cm . We will order ANDRE to further evaluate aortic valve annulus per the request of Dr. Collazo. 3. HTN (hypertension) Blood pressures ranging 130/67-153/71. On losartan. 4. Hyperlipemia On atorvastatin. Will order cholesterol panel. 5. Arthritis On no medications 6. Tobacco use Reports that she smokes 1 to 2 packs/day for the past 30 years. Counseled on smoking cessation. 7. Family history of premature CAD She reports that her father had an HI at the age of 46 and underwent stenting and subsequently CABG x3. Her brother underwent a CABG x3 at the age of 43. 8. Obesity (BMI 30-39.9) Approximately 50 minutes spent obtaining past medical history from EMR, conducting [id number] visit with patient and family at bedside, answering all questions, and dictating details of today's consultation. Orders: .PharmacyCommunication, Start: 05/28/22 12:40:00 EST, Daily, 05/28/22 12:40:00 EST .PharmacyCommunication, Start: 05/28/22 12:40:00 EST, Daily, 05/28/22 12:40:00 EST chlorhexidine topical, Start: 05/28/22 21:00:00 EST, Dose = 15 mL, Liq, Oral, BID, 2 dose(s), Stop: 05/29/22 9:00:00 EST, 05/28/22 21:00:00 EST mupirocin topical, Start: 05/28/22 12:40:00 EST, Dose = 1 james, Nostril, each, BID, Apply to: each nostril, 5 day(s), Stop: 06/02/22 9:00:00 EST, Ointment, 05/28/22 12:40:00 EST A1C Hemoglobin Blood Gas Panel (AH) Call Parameters Call Parameters Consult to Cardiac Rehabilitation Consult to Case Management/Social Service COVID/FLU/RSV PCR Screen Hepatic Function Panel Incentive Spirometer Lipid Profile Nutritional Supplement Order Skin Care Urinalysis Video on Demand VL Carotid US/Doppler Complete VL Vein Mapping US/Doppler Both Legs XR Chest 2 Views (PA & Lateral) Problem List/Past Medical History Ongoing Aortic stenosis Arthritis CAD (coronary artery disease) Family history of premature CAD Hyperlipemia Obesity (BMI 30-39.9) Historical No qualifying data Procedure/Surgical History Echocardiogram: 04/21/22 delivery Cholecystectomy Medications Inpatient aspirin 81 mg oral delayed release tablet, 81 mg= 1 tab(s), Oral, qDay atorvastatin, 40 mg= 1 tab(s), Oral, qHS Calcium Gluconate IVPB DuoNeb, 3 mL, Inhalation, q4hRT, PRN heparin 5000 units/mL injection, 5000 unit(s)= 1 mL, Subcutaneous, q8h losartan, 50 mg= 1 tab(s), Oral, qDay melatonin, 3 mg= 1 tab(s), Oral, qHS, PRN Multiple Vitamins oral tablet, 1 tab(s), Oral, Daily mupirocin 2% topical ointment, 1 james, Nostril, each, BID NO METFORMIN (Glucophage) X 48hrs-patient has received contrast, 1 EA, Miscellaneous, Unscheduled No prasugrel (Effient) 7 days before surgery, 1 EA, Miscellaneous, Daily No Vitamin E,clopidogrel (Plavix), 5 days before surgery, 1 EA, Miscellaneous, Daily Peridex 0.12% oral rinse liquid, 15 mL, Oral, BID Sodium Chloride 0.9% intravenous solution 1,000 mL, 1000 mL, Intravenous Home aspirin 81 mg oral delayed release tablet, 81 mg= 1 tab(s), Oral, qDay losartan 50 mg oral tablet, 50 mg= 1 tab(s), Oral, qDay Multiple Vitamins oral tablet, 1 tab(s), Oral, Daily rosuvastatin 20 mg oral tablet, 20 mg= 1 tab(s), Oral, qDay Allergies NKA Social History Tobacco use: Current user, smokes 1 to 2 pack/day for the past 30 years Alcohol use: Patient denies Drug use: Patient denies 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 [employer] Living arrangements: Lives at home with , brother, [id number], insulin Ambulatory aids: Patient denies Family History Father: Alive, arthritis, HI at the age of 46 status post stents and subsequently CABG x3, hypertension, hyperlipidemia, CVA, skin and bladder cancer Mother: Alive, alcohol abuse, diabetes, hypertension, hypothyroidism, hyperlipidemia, endometriosis Brother: Alive, healthy Brother: Alive, CABG x3 at the age of 43, Fox aneurysm, hypertension, fibromuscular dysplasia, cystic adventitial disease, PAD Sister: Alive, endometriosis, peptic ulcer disease Son: Alive, healthy Immunizations Patient denies any recent COVID-19 infection. She is not vaccinated [1] Echocardiogram, Adult ([facility]); Freida Sinha Director Pediatric 04/21/2022 10:26 EST [2] Cardiac Catheterization -CV; Steph Wolf Director Pediatric 05/28/2022 08:10 EST Digitally Signed by GRACY SANTOS on 05/28/2022 01:06 PM [facility] 05-30-2022 Cardiology Progre ss note Date of Service 05/30/2022 Chief Complaint Coronary artery disease Severe aortic stenosis Subjective Patient sitting comfortably in her bed. She denied any chest pain or shortness of breath. Patient is scheduled for ANDRE tomorrow as a work-up for CABG plus SAVR. Left heart catheterization done on 05/28/2022 1. LAD: Proximal vessel lesion: There is a 60% stenosis. Mid-vessel lesion: There is a 90% stenosis. 2. Left circumflex: Mid-vessel lesion: There is a 50% stenosis. 3. Right coronary: Proximal vessel lesion: There is an 80% stenosis. Mid-vessel lesion: There is an 80% stenosis. IMPRESSIONS: Severe CAD in LAD and RCA. Known severe . RECOMMENDATIONS: CT surgery evaluation for CABG with AVR. Echocardiogram done on 04/21/2022 1. Left ventricle: The cavity size is normal. Wall thickness is mildly increased. Systolic function is normal. The estimated ejection fraction is 55-60%. Wall motion is normal; there are no regional wall motion abnormalities. Unable to assess diastolic function. 2. Aortic valve: The valve is possibly bicuspid. The leaflets are moderately thickened and moderately calcified. There is severe stenosis. There is mild, 1+ regurgitation. The mean systolic gradient is 34 mm Hg. The peak systolic gradient is 57 mm Hg. The LVOT to aortic valve VTI ratio is 0.24. The valve area by peak velocity is 0.7 cm . 3. Mitral valve: The annulus is mildly to moderately calcified. 4. Left atrium: The atrium is mildly dilated Objective Vitals and Measurements T: 36.8 C (Oral) TMIN: 36.5 C (Oral) TMAX: 36.9 C (Oral) HR: 81(Monitored) RR: 18 BP: 136/68 SpO2: 94% WT: 111.3 kg Intake and Output 7AM Yesterday to 7AM Today Intake and Output (Last 24 hours) Intake Oral Intake 200.00 Supplement Intake 270.00 Output Total Summary Total Intake 470.00 Total Output 0.00 Fluid Balance 470.00 Physical Exam General Appearance: Comfortable, not in acute distress HEENT:Bilateral normal eye movements, normal oral cavity Neck: No JVD noted Cardiac: S1, severe systolic murmur appreciated in the aortic area Lungs: No wheezes, normal chest expansion. Abdomen: No tenderness, no distention, normal bowel sounds. Musculoskeletal: No signs of acute synovitis. Neurological: Alert and oriented x3, no focal neurological deficits grossly. Extremities: no lower extremity edema, no crackles, no JVP distention, warm extremities. Psychiatric: Appropriate, normal mood. Weight Current Weight Dosing Weight: 111.8 kg (05/28/22) Current Weight: 111.3 kg (05/30/22) Current Weight: 111.6 kg (05/29/22) Medications Medications (11) Active Scheduled: (9) aspirin 81 mg EC 81 mg 1 tab(s), Oral, qDay atorvastatin 40 mg tablet 40 mg 1 tab(s), Oral, qHS heparin 5,000 units/mL (1 mL) vial 5,000 unit(s) 1 mL, Subcutaneous, q8h losartan 50 mg tablet 50 mg 1 tab(s), Oral, qDay multivitamin tablet 1 tab(s), Oral, Daily mupirocin 2% Ointment 22 Gram(s) tube 1 james, Nostril, each, BID No metformin for 48 hrs post contrast 1 EA, Miscellaneous, Unscheduled No prasugrel (Effient) 7 days before surgery 1 EA, Miscellaneous, Daily NO vitamin E, clopidogrel (Plavix) 5 days before surgery 1 EA, Miscellaneous, Daily Continuous: (0) PRN: (2) albuterol - ipratropium 2.5 mg-0.5 mg/3 mL Inhal Dana UD 3 mL, Inhalation, q4hRT melatonin 3 mg tablet 3 mg 1 tab(s), Oral, qHS Lab Results 05/29 04:33 WBC: 7.4 Hgb: 13.4 Hct: 40.4 Platelet: 231 Neutrophil %: 56.7 Glucose Level: 112 H Sodium Level: 142 Potassium Level: 4.5 BUN: 17.0 Creatinine Lvl (s): 0.93 EKG EKG - Completed -- 05/28/22 8:44:00 EST Assessment/Plan 52-year-old morbidly obese female with significant past medical history of recently discovered moderate to severe aortic stenosis, suspected CAD, systemic hypertension, dyslipidemia, tobacco use, and osteoarthritis who presented to [facility] on 05/28/2022 for elective left heart catheterization. ASSESSMENT # Coronary artery disease # Severe aortic stenosis # Systemic hypertension # Dyslipidemia # Tobacco use # Osteoarthritis Plan Patient admitted, CT surgery following the patient. Patient scheduled for ANDRE on Tuesday morning CT surgery evaluating Continue with aspirin, atorvastatin DVT prophylaxis Heparin 5000 units every 8 hours Digitally Signed by SONAM BECK MD on 05/30/2022 08:47 AM [facility] 05-29-2022 Cardiology Yeseniae ss note Date of Service 05/29/2022 Chief Complaint Coronary artery disease Severe aortic stenosis Subjective Patient sitting comfortably in her bed. She denied any chest pain or shortness of breath. She had left heart cath yesterday. Left heart catheterization done on 05/28/2022 1. LAD: Proximal vessel lesion: There is a 60% stenosis. Mid-vessel lesion: There is a 90% stenosis. 2. Left circumflex: Mid-vessel lesion: There is a 50% stenosis. 3. Right coronary: Proximal vessel lesion: There is an 80% stenosis. Mid-vessel lesion: There is an 80% stenosis. IMPRESSIONS: Severe CAD in LAD and RCA. Known severe . RECOMMENDATIONS: CT surgery evaluation for CABG with AVR. Echocardiogram done on 04/21/2022 1. Left ventricle: The cavity size is normal. Wall thickness is mildly increased. Systolic function is normal. The estimated ejection fraction is 55-60%. Wall motion is normal; there are no regional wall motion abnormalities. Unable to assess diastolic function. 2. Aortic valve: The valve is possibly bicuspid. The leaflets are moderately thickened and moderately calcified. There is severe stenosis. There is mild, 1+ regurgitation. The mean systolic gradient is 34 mm Hg. The peak systolic gradient is 57 mm Hg. The LVOT to aortic valve VTI ratio is 0.24. The valve area by peak velocity is 0.7 cm . 3. Mitral valve: The annulus is mildly to moderately calcified. 4. Left atrium: The atrium is mildly dilated Objective Vitals and Measurements T: 36.5 C (Oral) TMIN: 36.5 C (Oral) TMAX: 36.7 C (Oral) HR: 77(Monitored) RR: 16 BP: 134/78 SpO2: 95% WT: 111.6 kg Intake and Output 7AM Yesterday to 7AM Today Intake and Output (Last 24 hours) Intake Output Urine Voided 950.00 Total Summary Total Intake 0.00 Total Output 950.00 Fluid Balance -950.00 Physical Exam General Appearance: Comfortable, not in acute distress HEENT:Bilateral normal eye movements, normal oral cavity Neck: No JVD noted Cardiac: S1, severe systolic murmur appreciated in the aortic area Lungs: No wheezes, normal chest expansion. Abdomen: No tenderness, no distention, normal bowel sounds. Musculoskeletal: No signs of acute synovitis. Neurological: Alert and oriented x3, no focal neurological deficits grossly. Extremities: no lower extremity edema, no crackles, no JVP distention, warm extremities. Psychiatric: Appropriate, normal mood. Weight Current Weight Dosing Weight: 111.8 kg (05/28/22) Current Weight: 111.6 kg (05/29/22) Medications Medications (11) Active Scheduled: (9) aspirin 81 mg EC 81 mg 1 tab(s), Oral, qDay atorvastatin 40 mg tablet 40 mg 1 tab(s), Oral, qHS heparin 5,000 units/mL (1 mL) vial 5,000 unit(s) 1 mL, Subcutaneous, q8h losartan 50 mg tablet 50 mg 1 tab(s), Oral, qDay multivitamin tablet 1 tab(s), Oral, Daily mupirocin 2% Ointment 22 Gram(s) tube 1 james, Nostril, each, BID No metformin for 48 hrs post contrast 1 EA, Miscellaneous, Unscheduled No prasugrel (Effient) 7 days before surgery 1 EA, Miscellaneous, Daily NO vitamin E, clopidogrel (Plavix) 5 days before surgery 1 EA, Miscellaneous, Daily Continuous: (0) PRN: (2) albuterol - ipratropium 2.5 mg-0.5 mg/3 mL Inhal Dana UD 3 mL, Inhalation, q4hRT melatonin 3 mg tablet 3 mg 1 tab(s), Oral, qHS Lab Results 05/29 04:33 WBC: 7.4 Hgb: 13.4 Hct: 40.4 Platelet: 231 Neutrophil %: 56.7 Glucose Level: 112 H Sodium Level: 142 Potassium Level: 4.5 BUN: 17.0 Creatinine Lvl (s): 0.93 05/28 10:47 WBC: 10.1 Hgb: 13.5 Hct: 40.7 Platelet: 246 Neutrophil %: 67.8 Glucose Level: 90 Sodium Level: 141 Potassium Level: 4.7 BUN: 14.0 Creatinine Lvl (s): 0.82 05/28 07:04 Glucose Level: 108 Sodium Level: 142 Potassium Level: 4.4 BUN: 15.0 Creatinine Lvl (s): 0.85 EKG No qualifying data available. Assessment/Plan 82-year-old morbidly obese female with significant past medical history of recently discovered moderate to severe aortic stenosis, suspected CAD, systemic hypertension, dyslipidemia, tobacco use, and osteoarthritis who presented to [facility] on 05/28/2022 for elective left heart catheterization. ASSESSMENT # Coronary artery disease # Severe aortic stenosis # Systemic hypertension # Dyslipidemia # Tobacco use # Osteoarthritis Plan Patient admitted, CT surgery following the patient. Patient scheduled for ANDRE on Tuesday morning CT surgery evaluating Continue with aspirin, atorvastatin DVT prophylaxis Heparin 5000 units every 8 hours Digitally Signed by SONAM BECK MD on 05/29/2022 11:51 AM [facility] 05-29-2022 Note ORIGINAL EXAMINATION: CT OF THE CHEST WITHOUT CONTRAST 05/28/2022 7:19 pm TECHNIQUE: CT of the chest was performed without the administration of intravenous contrast. Multiplanar reformatted images are provided for review. Automated exposure control, iterative reconstruction, and/or weight based adjustment of the mA/kV was utilized to reduce the radiation dose to as low as reasonably achievable. COMPARISON: None. HISTORY: ORDERING SYSTEM PROVIDED HISTORY: Reason for Exam: CAD, AORTIC CALCIFICATION WORKUP CAD, assess for aortic calcification FINDINGS: Mediastinum: 1.1 cm hypodense left thyroid nodule does not require further follow-up. No thoracic lymphadenopathy given lack of IV contrast. Normal heart size. No pericardial effusion. Aortic valvular calcifications. Coronary and mild aortic atherosclerosis. Great vessels are normal in caliber. Lungs/pleura: Few scattered dependent debris foci in the trachea and mainstem bronchi. No focal consolidation. Slight curvilinear atelectasis in the medial segment right middle lobe. 4 mm juxtapleural right apical nodule (series 2, image 30). No pleural effusion or pneumothorax. Upper Abdomen: Cholecystectomy clips. Vascular calcifications. Small splenule posteriorly. Soft Tissues/Bones: No acute or destructive bony abnormality. Degenerative spine. IMPRESSION: No acute cardiopulmonary process. 4 mm right apical nodule. Optional CT thorax could be considered based on risk per Fleischner criteria. RECOMMENDATIONS: Unavailable Interpreted by: Ronnie Velazquez Preliminary Report By: Ronnie Velazquez Electronically signed By Ronnie Velazquez Dictated Date: 05/29/2022 3:36:19 PM Prelim Date: 05/29/2022 3:40:15 PM Sign Date: 05/29/2022 3:40:15 PM Ordering Provider: [facility] 05-29-2022 Note ORIGINAL EXAMINATION: TWO XRAY VIEWS OF THE CHEST 05/28/2022 7:22 pm COMPARISON: None. HISTORY: ORDERING SYSTEM PROVIDED HISTORY: Reason for Exam: Chest pain FINDINGS: Cardiomediastinal contours are normal. Clear lungs. No pneumothorax or pleural effusion. IMPRESSION: Clear lungs. Interpreted by: Ronnie Velazquez Preliminary Report By: Ronnie Velazquez Electronically signed By Ronnie Velazquez Dictated Date: 05/29/2022 3:34:50 PM Prelim Date: 05/29/2022 3:36:15 PM Sign Date: 05/29/2022 3:36:15 PM Ordering Provider: [facility] 05-29-2022 Cardiology Progre ss note Date of Service 05/29/2022 Chief Complaint Coronary artery disease Severe aortic stenosis Subjective Patient sitting comfortably in her bed. She denied any chest pain or shortness of breath. She had left heart cath yesterday. Left heart catheterization done on 05/28/2022 1. LAD: Proximal vessel lesion: There is a 60% stenosis. Mid-vessel lesion: There is a 90% stenosis. 2. Left circumflex: Mid-vessel lesion: There is a 50% stenosis. 3. Right coronary: Proximal vessel lesion: There is an 80% stenosis. Mid-vessel lesion: There is an 80% stenosis. IMPRESSIONS: Severe CAD in LAD and RCA. Known severe . RECOMMENDATIONS: CT surgery evaluation for CABG with AVR. Echocardiogram done on 04/21/2022 1. Left ventricle: The cavity size is normal. Wall thickness is mildly increased. Systolic function is normal. The estimated ejection fraction is 55-60%. Wall motion is normal; there are no regional wall motion abnormalities. Unable to assess diastolic function. 2. Aortic valve: The valve is possibly bicuspid. The leaflets are moderately thickened and moderately calcified. There is severe stenosis. There is mild, 1+ regurgitation. The mean systolic gradient is 34 mm Hg. The peak systolic gradient is 57 mm Hg. The LVOT to aortic valve VTI ratio is 0.24. The valve area by peak velocity is 0.7 cm . 3. Mitral valve: The annulus is mildly to moderately calcified. 4. Left atrium: The atrium is mildly dilated Objective Vitals and Measurements T: 36.5 C (Oral) TMIN: 36.5 C (Oral) TMAX: 36.7 C (Oral) HR: 77(Monitored) RR: 16 BP: 134/78 SpO2: 95% WT: 111.6 kg Intake and Output 7AM Yesterday to 7AM Today Intake and Output (Last 24 hours) Intake Output Urine Voided 950.00 Total Summary Total Intake 0.00 Total Output 950.00 Fluid Balance -950.00 Physical Exam General Appearance: Comfortable, not in acute distress HEENT:Bilateral normal eye movements, normal oral cavity Neck: No JVD noted Cardiac: S1, severe systolic murmur appreciated in the aortic area Lungs: No wheezes, normal chest expansion. Abdomen: No tenderness, no distention, normal bowel sounds. Musculoskeletal: No signs of acute synovitis. Neurological: Alert and oriented x3, no focal neurological deficits grossly. Extremities: no lower extremity edema, no crackles, no JVP distention, warm extremities. Psychiatric: Appropriate, normal mood. Weight Current Weight Dosing Weight: 111.8 kg (05/28/22) Current Weight: 111.6 kg (05/29/22) Medications Medications (11) Active Scheduled: (9) aspirin 81 mg EC 81 mg 1 tab(s), Oral, qDay atorvastatin 40 mg tablet 40 mg 1 tab(s), Oral, qHS heparin 5,000 units/mL (1 mL) vial 5,000 unit(s) 1 mL, Subcutaneous, q8h losartan 50 mg tablet 50 mg 1 tab(s), Oral, qDay multivitamin tablet 1 tab(s), Oral, Daily mupirocin 2% Ointment 22 Gram(s) tube 1 james, Nostril, each, BID No metformin for 48 hrs post contrast 1 EA, Miscellaneous, Unscheduled No prasugrel (Effient) 7 days before surgery 1 EA, Miscellaneous, Daily NO vitamin E, clopidogrel (Plavix) 5 days before surgery 1 EA, Miscellaneous, Daily Continuous: (0) PRN: (2) albuterol - ipratropium 2.5 mg-0.5 mg/3 mL Inhal Dana UD 3 mL, Inhalation, q4hRT melatonin 3 mg tablet 3 mg 1 tab(s), Oral, qHS Lab Results 05/29 04:33 WBC: 7.4 Hgb: 13.4 Hct: 40.4 Platelet: 231 Neutrophil %: 56.7 Glucose Level: 112 H Sodium Level: 142 Potassium Level: 4.5 BUN: 17.0 Creatinine Lvl (s): 0.93 05/28 10:47 WBC: 10.1 Hgb: 13.5 Hct: 40.7 Platelet: 246 Neutrophil %: 67.8 Glucose Level: 90 Sodium Level: 141 Potassium Level: 4.7 BUN: 14.0 Creatinine Lvl (s): 0.82 05/28 07:04 Glucose Level: 108 Sodium Level: 142 Potassium Level: 4.4 BUN: 15.0 Creatinine Lvl (s): 0.85 EKG No qualifying data available. Assessment/Plan 82-year-old morbidly obese female with significant past medical history of recently discovered moderate to severe aortic stenosis, suspected CAD, systemic hypertension, dyslipidemia, tobacco use, and osteoarthritis who presented to [facility] on 05/28/2022 for elective left heart catheterization. ASSESSMENT # Coronary artery disease # Severe aortic stenosis # Systemic hypertension # Dyslipidemia # Tobacco use # Osteoarthritis Plan Patient admitted, CT surgery following the patient. Patient scheduled for ANDRE on Tuesday morning CT surgery evaluating Continue with aspirin, atorvastatin DVT prophylaxis Heparin 5000 units every 8 hours Digitally Signed by SONAM BECK MD on 05/29/2022 11:51 AM [facility] 05-28-2022 Note ORIGINAL EXAMINATION: TWO XRAY VIEWS OF THE CHEST 05/28/2022 7:22 pm COMPARISON: None. HISTORY: ORDERING SYSTEM PROVIDED HISTORY: Reason for Exam: Chest pain FINDINGS: Cardiomediastinal contours are normal. Clear lungs. No pneumothorax or pleural effusion. IMPRESSION: Clear lungs. Interpreted by: Ronnie Velazquez Preliminary Report By: Ronnie Velazquez Electronically signed By Ronnie Velazquez Dictated Date: 05/29/2022 3:34:50 PM Prelim Date: 05/29/2022 3:36:15 PM Sign Date: 05/29/2022 3:36:15 PM Ordering Provider: GRACY SANTOS [facility] 05-28-2022 Note ORIGINAL EXAMINATION: CT OF THE CHEST WITHOUT CONTRAST 05/28/2022 7:19 pm TECHNIQUE: CT of the chest was performed without the administration of intravenous contrast. Multiplanar reformatted images are provided for review. Automated exposure control, iterative reconstruction, and/or weight based adjustment of the mA/kV was utilized to reduce the radiation dose to as low as reasonably achievable. COMPARISON: None. HISTORY: ORDERING SYSTEM PROVIDED HISTORY: Reason for Exam: CAD, AORTIC CALCIFICATION WORKUP CAD, assess for aortic calcification FINDINGS: Mediastinum: 1.1 cm hypodense left thyroid nodule does not require further follow-up. No thoracic lymphadenopathy given lack of IV contrast. Normal heart size. No pericardial effusion. Aortic valvular calcifications. Coronary and mild aortic atherosclerosis. Great vessels are normal in caliber. Lungs/pleura: Few scattered dependent debris foci in the trachea and mainstem bronchi. No focal consolidation. Slight curvilinear atelectasis in the medial segment right middle lobe. 4 mm juxtapleural right apical nodule (series 2, image 30). No pleural effusion or pneumothorax. Upper Abdomen: Cholecystectomy clips. Vascular calcifications. Small splenule posteriorly. Soft Tissues/Bones: No acute or destructive bony abnormality. Degenerative spine. IMPRESSION: No acute cardiopulmonary process. 4 mm right apical nodule. Optional CT thorax could be considered based on risk per Fleischner criteria. RECOMMENDATIONS: Unavailable Interpreted by: Ronnie Velazquez Preliminary Report By: Ronnie Velazquez Electronically signed By Ronnie Velazquez Dictated Date: 05/29/2022 3:36:19 PM Prelim Date: 05/29/2022 3:40:15 PM Sign Date: 05/29/2022 3:40:15 PM Ordering Provider: GRACY [facility] Coronary artery disease Severe aortic stenosis Systemic hypertension Dyslipidemia Tobacco use Osteoarthritis Patient's other comorbidities DVT prophylaxis Full CODE STATUS As for coronary disease, patient will be evaluated by cardiothoracic surgery for CABG. Continue aspirin, statin and beta-blockade. As for her severe aortic stenosis, patient will be evaluated by cardiothoracic surgery for aortic valve replacement. As for systemic hypertension, continue home losartan. As for her dyslipidemia, continue home atorvastatin. Smoking cessation was advised. As for patient's other comorbidities, we will continue all her home medications/therapies are not currently interfering with this patient's care. Assessment and plan was discussed with Dr. Celeste. Any changes in assessment/plan, will be added as an addendum to this note by the attending physician. I have reviewed all available EKGs, echocardiograms, stress test and cardiac catheterizations. Relevant laboratory data have also been reviewed. This note was transcribed via voice recognition software. Please, forgive any errors or typos, resulting from the use of this technology. Future Appointments Appointment Date:06/16/2022 02:00:00 PM Scheduled Provider:ELOISE LANGFORD Location:[facility] Appointment Type:[facility] Post Op Appointment Date:07/09/2022 04:15:00 PM Scheduled Provider: Location:[facility] Appointment Type:[facility] Hospital Follow Up [facility] 02-03-2023 Cardiothoracic surgery Consult note Date of Service 05/28/2022 Reason for Consultation Moderate to severe aortic stenosis, severe LAD and RCA disease, eval for CABG evaluation Referring Physician Dr. Celeste History of Present Illness This is a split/shared visit with Dr. Collazo. This is a 52-year-old female with past medical history of hypertension, hyperlipidemia, arthritis, and tobacco use. She has history of familial premature heart disease in her father having an HI at the age of 46 and brother undergoing CABG x3 at the age of 43. Over the past couple of years, she hasbeen experiencing midsternal chest pressure that was related to hypertension. She states her blood pressures were typically in the 180'2/120's. She does endorse chronic dyspnea with physical exertion. Denies any syncope, PND, orthopnea, or peripheral edema. She was seen and evaluated by her primarycare doctor and started on lisinopril which caused a dry nonproductive cough therefore she was switched to losartan. She had an echocardiogram completed by her primary care doctor on April 21, 2022 showing an EF of 55 to 60%, possible bicuspid aortic valve with severe aortic valve stenosis and mild aortic valve regurgitation (mean systolic gradient 34 mmHg, peak systolic gradient 57 mmHg valvearea by peak velocity 0.7 cm ). She was referred to Dr. Celeste for further evaluation of aortic stenosis. She presents today for a heart catheterization which showed 60% stenosis of the proximal LAD, and 90% stenosis of the mid LAD, 50% stenosis of the left circumflex, 80% stenosis of the proximal and mid RCA. Cardiothoracic surgery has been consulted for surgical myocardial vascularization and aortic valve replacement. Patient does not take anticoagulants. STS risk assessment for CABG + AVR: Risk of Mortality: 1.754% Renal Failure: 1.427% Permanent Stroke: 1.379% Prolonged Ventilation: 5.949% DSW Infection: 0.245% Reoperation: 2.698% Morbidity or Mortality: 10.559% Short Length of Stay: 43.404% Long Length of Stay: 4.040% Review of Systems Constitutional: Denies fever, chills, weight loss, weight gain HEENT: Wears glasses, edentulous with upper and lower dentures; denies blurred vision, dysphagia, hearing loss Respiratory: See HPI CV: See HPI Vascular: Varicose veins (right greater than left), denies any claudication, nonhealing ulcers, DVTs GI: Denies nausea, vomiting, constipation, diarrhea : Denies dysuria, hematuria Neuro: Denies weakness, seizures, numbness or tingling Endo: Denies heat/cold intolerance, hair loss, polyuria hemo/oncology: Denies bleeding, bruising, lymphadenopathy Muscular/skeletal: Arthralgia of lower back; denies leg cramps, joint stiffness Psych: Positive depression; denies anxiousness or suicidal ideations Physical Exam Vitals and Measurements T: 36.4 C (Oral) TMIN: 36.0 C (Oral) TMAX: 36.4 C (Oral) HR: 82(Monitored) RR: 20 BP: 130/67 SpO2: 94% HT: 175 cm WT: 111.8 kg Weight Dosing Weight: 111.8 kg (05/28/22) Constitutional: Alert, oriented x4, appropriate HEENT: Normocephalic, atraumatic, edentulous with upper and lower dentures, neck supple, negative JVD, right carotid bruit, no JVD Lungs: Unlabored respirations, lung sounds clear And diminished bilaterally, SPO2 94 to 98% on roomair Heart: Normal sinus rhythm, S1-S2, systolic heart murmur, no rub, heart rate ranging 75-84 Abdomen: Obese, nontender, bowel sounds present, No bowel movement Extremities: Well perfused, pedal pulses +2 bilaterally, no lower leg edema; bilateral radial pulses +2, no upper extremity edema; varicose veins of bilateral lower extremities Integumentary: Intact, no rashes Neuro: Cranial nerves II through VIII intact Lab Results 05/28 10:47 WBC: 10.1 Hgb: 13.5 Hct: 40.7 Platelet: 246 Neutrophil %: 67.8 Glucose Level: 90 Sodium Level: 141 Potassium Level: 4.7 BUN: 14.0 Creatinine Lvl (s): 0.82 05/28 07:04 Glucose Level: 108 Sodium Level: 142 Potassium Level: 4.4 BUN: 15.0 Creatinine Lvl (s): 0.85 Imaging Results and Diagnostics ECHO Summary: 1. Left ventricle: The cavity size is normal. Wall thickness is mildly increased. Systolic functionis normal. The estimated ejection fraction is 55-60%. Wall motion is normal; there are no regional wall motion abnormalities. Unable to assess diastolic function. 2. Aortic valve: The valve is possibly bicuspid. The leaflets are moderately thickened and moderately calcified. There is severe stenosis. There is mild, 1+ regurgitation. The mean systolic gradient is 34 mm Hg. The peak systolic gradient is 57 mm Hg. The LVOT to aortic valve VTI ratio is 0.24. The valve area by peak velocity is 0.7 cm . 3. Mitral valve: The annulus is mildly to moderately calcified. 4. Left atrium: The atrium is mildly dilated [1] CARDIAC CATH SUMMARY: 1. LAD: Proximal vessel lesion: There is a 60% stenosis. Mid-vessel lesion: There is a 90% stenosis. 2. Left circumflex: Mid-vessel lesion: There is a 50% stenosis. 3. Right coronary: Proximal vessel lesion: There is an 80% stenosis. Mid-vessel lesion: There is an80% stenosis. IMPRESSIONS: Severe CAD in LAD and RCA. Known severe . RECOMMENDATIONS: CT surgery evaluation for CABG with AVR [2] Assessment/Plan 1. CAD (coronary artery disease) EF 55-60% Surgical work-up in process. Surgical evaluation pending by Dr. Collazo. Currently in normal sinus rhythm. On Aspirin, atorvastatin 2. Aortic stenosis Echocardiogram from 04/21/2022 revealing possible bicuspid aortic valve with severe aortic valve stenosis and mild 1+ aortic valve regurgitation. Mean systolic gradient 34 mmHg, peak systolic gradient 57 mmHg, and valve area by peak velocity 0.7 cm . We will order ANDRE to further evaluate aortic valve annulus per the request of Dr. Collazo. 3. HTN (hypertension) Blood pressures ranging 130/67-153/71. On losartan. 4. Hyperlipemia On atorvastatin. Will order cholesterol panel. 5. Arthritis On no medications 6. Tobacco use Reports that she smokes 1 to 2 packs/day for the past 30 years. Counseled on smoking cessation. 7. Family history of premature CAD She reports that her father had an HI at the age of 46 and underwent stenting and subsequently CABGx3. Her brother underwent a CABG x3 at the age of 43. 8. Obesity (BMI 30-39.9) Approximately 50 minutes spent obtaining past medical history from EMR, conducting [id number] visit with patient and family at bedside, answering all questions, and dictating details of today's consultation. Orders: .PharmacyCommunication, Start: 05/28/22 12:40:00 EST, Daily, 05/28/22 12:40:00 EST .PharmacyCommunication, Start: 05/28/22 12:40:00 EST, Daily, 05/28/22 12:40:00 EST chlorhexidine topical, Start: 05/28/22 21:00:00 EST, Dose = 15 mL, Liq, Oral, BID, 2 dose(s), Stop:05/29/22 9:00:00 EST, 05/28/22 21:00:00 EST mupirocin topical, Start: 05/28/22 12:40:00 EST, Dose = 1 james, Nostril, each, BID, Apply to: each nostril, 5 day(s), Stop: 06/02/22 9:00:00 EST, Ointment, 05/28/22 12:40:00 EST A1C Hemoglobin Blood Gas Panel (AH) Call Parameters Call Parameters Consult to Cardiac Rehabilitation Consult to Case Management/Social Service COVID/FLU/RSV PCR Screen Hepatic Function Panel Incentive Spirometer Lipid Profile Nutritional Supplement Order Skin Care Urinalysis Video on Demand VL Carotid US/Doppler Complete VL Vein Mapping US/Doppler Both Legs XR Chest 2 Views (PA & Lateral) Problem List/Past Medical History Ongoing Aortic stenosis Arthritis CAD (coronary artery disease) Family history of premature CAD Hyperlipemia Obesity (BMI 30-39.9) Historical No qualifying data Procedure/Surgical History Echocardiogram: 04/21/22 delivery Cholecystectomy Medications Inpatient aspirin 81 mg oral delayed release tablet, 81 mg= 1 tab(s), Oral, qDay atorvastatin, 40 mg= 1 tab(s), Oral, qHS Calcium Gluconate IVPB DuoNeb, 3 mL, Inhalation, q4hRT, PRN heparin 5000 units/mL injection, 5000 unit(s)= 1 mL, Subcutaneous, q8h losartan, 50 mg= 1 tab(s), Oral, qDay melatonin, 3 mg= 1 tab(s), Oral, qHS, PRN Multiple Vitamins oral tablet, 1 tab(s), Oral, Daily mupirocin 2% topical ointment, 1 james, Nostril, each, BID NO METFORMIN (Glucophage) X 48hrs-patient has received contrast, 1 EA, Miscellaneous, Unscheduled No prasugrel (Effient) 7 days before surgery, 1 EA, Miscellaneous, Daily No Vitamin E,clopidogrel (Plavix), 5 days before surgery, 1 EA, Miscellaneous, Daily Peridex 0.12% oral rinse liquid, 15 mL, Oral, BID Sodium Chloride 0.9% intravenous solution 1,000 mL, 1000 mL, Intravenous Home aspirin 81 mg oral delayed release tablet, 81 mg= 1 tab(s), Oral, qDay losartan 50 mg oral tablet, 50 mg= 1 tab(s), Oral, qDay Multiple Vitamins oral tablet, 1 tab(s), Oral, Daily rosuvastatin 20 mg oral tablet, 20 mg= 1 tab(s), Oral, qDay Allergies NKA Social History Tobacco use: Current user, smokes 1 to 2 pack/day for the past 30 years Alcohol use: Patient denies Drug use: Patient denies 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 [employer] Living arrangements: Lives at home with , brother, [id number], insulin Ambulatory aids: Patient denies Family History Father: Alive, arthritis, HI at the age of 46 status post stents and subsequently CABG x3, hypertension, hyperlipidemia, CVA, skin and bladder cancer Mother: Alive, alcohol abuse, diabetes, hypertension, hypothyroidism, hyperlipidemia, endometriosis Brother: Alive, healthy Brother: Alive, CABG x3 at the age of 43, Fox aneurysm, hypertension, fibromuscular dysplasia, cystic adventitial disease, PAD Sister: Alive, endometriosis, peptic ulcer disease Son: Alive, healthy Immunizations Patient denies any recent COVID-19 infection. She is not vaccinated [1] Echocardiogram, Adult (AOH); Freida Sinha [employer] 04/21/2022 10:26 EST [2] Cardiac Catheterization -CV; Steph Wolf Director Pediatric 05/28/2022 08:10 EST Digitally Signed by GRACY SANTOS APRN-SHIP DESIGN TEACHER on 05/28/2022 01:06 PM [id number] History and physical note Date of Service 05/28/2022 Chief Complaint Shortness of breath on exertion History of Present Illness 82-year-old morbidly obese female with significant past medical history of recently discovered moderate to severe aortic stenosis, suspected CAD, systemic hypertension, dyslipidemia, tobacco use, and osteoarthritis who presented to [facility] on 05/28/2022 for elective left heart cat heterization. The indication for her left heart catheterization was moderate to severe aortic stenosis that was noted on echocardiogram. Echocardiogram was initially ordered as patient was complaining of exertional shortness of breath. Patient underwent left heart catheterization on 05/28/2022 via the right radial artery approach. Left heart catheterization revealed significant LAD disease and RCA disease. Patient was also found tohave severe aortic stenosis. Cardiothoracic surgery has been consulted. Patient will be admitted for evaluation by cardiothoracic surgery. EKG revealed normal sinus rhythm with a ventricular rate of [address]-T changes suggestive of ischemia. We admitted Left heart catheterization done on 05/28/2022 1. LAD: Proximal vessel lesion: There is a 60% stenosis. Mid-vessel lesion: There is a 90% stenosis. 2. Left circumflex: Mid-vessel lesion: There is a 50% stenosis. 3. Right coronary: Proximal vessel lesion: There is an 80% stenosis. Mid-vessel lesion: There is an80% stenosis. IMPRESSIONS: Severe CAD in LAD and RCA. Known severe . RECOMMENDATIONS: CT surgery evaluation for CABG with AVR. Echocardiogram done on 1. Left ventricle: The cavity size is normal. Wall thickness is mildly increased. Systolic functionis normal. The estimated ejection fraction is 55- 60%. Wall motion is normal; there are no regional wall motion abnormalities. Unable to assess diastolic function. 2. Aortic valve: The valve is possibly bicuspid. The leaflets are moderately thickened and moderately calcified. There is severe stenosis. There is mild, 1+ regurgitation. The mean systolic gradient is 34 mm Hg. The peak systolic gradient is 57 mm Hg. The LVOT to aortic valve VTI ratio is 0.24. Thevalve area by peak velocity is 0.7 cm . 3. Mitral valve: The annulus is mildly to moderately calcified. 4. Left atrium: The atrium is mildly dilated. Review of Systems A thorough 14 point review of system was done, and is negative except for what is listed above in the HPI section. Physical Exam Vitals and Measurements T: 36.0 C (Oral) HR: 84 RR: 18 BP: 130/84 SpO2: 98% HT: 175 cm WT: 111.8 kg Weight Dosing Weight: 111.8 kg (05/28/22) General: Patient is under no acute distress,and in no discomfort Head: Normocephalic, Atraumatic Eyes/Ear: Pupils are equal and reactive, No scleral icterus. Nose: Normal appearing nasal nares Mouth: Good oral hygiene, Moist oral mucosa, no pharyngeal erythema or exudates noted, undeviated uvula Neck: Obese, supple, Nontender, No thyromegaly, No JVD, Midline trachea, No lymphadenopathy Chest: Normal breathing effort, clear to auscultation bilaterally Cardiac: RRR, Normal S1-S2, No GR, systolic ejection murmur best heard at RUSB Abdomen: Obese, soft, Nontender, Normal active bowel sounds Back: No obvious deformities. Genitourinary: Deferred Extremity: Radial pulses 2+ B/L. Warm bilaterally, No pedal edema, no atrophy or skin changes noted Skin: No PATHOLOGIC moles, rashes, lesions or ulcers were noted other than what is listed above Neuro: Alert and Oriented 4, Cranial nerves II to XII grossly intact. No focal deficits grossly noted Psych: Pleasant, Good attention Lab Results 05/28 07:04 Glucose Level: 108 Sodium Level: 142 Potassium Level: 4.4 BUN: 15.0 Creatinine Lvl (s): 0.85 Imaging Results and Diagnostics NONE EKG Reviewed. See HPI. Assessment/Plan Coronary artery disease Severe aortic stenosis Systemic hypertension Dyslipidemia Tobacco use Osteoarthritis Patient's other comorbidities DVT prophylaxis Full CODE STATUS As for coronary disease, patient will be evaluated by cardiothoracic surgery for CABG. Continue aspirin, statin and beta-blockade. As for her severe aortic stenosis, patient will be evaluated by cardiothoracic surgery for aortic valve replacement. As for systemic hypertension, continue home losartan. As for her dyslipidemia, continue home atorvastatin. Smoking cessation was advised. As for patient's other comorbidities, we will continue all her home medications/therapies are not currently interfering with this patient's care. Assessment and plan was discussed with Dr. Celeste. Any changes in assessment/plan, will be added as an addendum to this note by the attending physician. I have reviewed all available EKGs, echocardiograms, stress test and cardiac catheterizations. Relevant laboratory data have also been reviewed. This note was transcribed via voice recognition software. Please, forgive any errors or typos, resulting from the use of this technology. Problem List/Past Medical History Coronary artery disease Moderate to severe aortic stenosis Systemic hypertension Dyslipidemia Tobacco use Family a history of CAD Family history of valvular disorders. Procedure/Surgical History Echocardiogram: 04/21/22 delivery Cholecystectomy Medications Home Medications (4) Active aspirin 81 mg oral delayed release tablet 81 mg = 1 tab(s), Oral, qDay losartan 50 mg oral tablet 50 mg = 1 tab(s), Oral, qDay Multiple Vitamins oral tablet 1 tab(s), Oral, Daily rosuvastatin 20 mg oral tablet 20 mg = 1 tab(s), Oral, qDay Allergies NKA Social History Alcohol Use: Past., 05/22/2022 Nutrition/Health Caffeine intake amount: coffee 5 cups daily., 05/22/2022 Tobacco Nicotine Use: 10 or more cigarettes (1/2 pack or more)/day in last 30 days, Smoker, current status unknown. Type: Cigarettes. Tobacco use per day: 20. Number of years: 35. Total pack years: 1., 05/22/2022 Family History CABG - Coronary artery bypass graft: Father and Brother. Cancer: Father and Grandparent. Diabetes: Mother. Heart attack: Grandparent. Stroke: Father and Grandparent. Immunizations No qualifying data available. Code Status Code Status - Ordered -- 05/28/22 8:44:00 EST, Full Code, Constant Order Digitally Signed by FRANCOIS GARRETT MD on 05/28/2022 03:06 PM Digitally Signed by SUSIE ARRIETA MD [facility] [id number] NoteHNO ID: [id number] Author: Daya Valentine OD Service: ? 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 Nuclear sclerosis of both eyes 2. Cortical age-related cataract, bilateral Educated pt on condition and that smoking cessation will help slow the progression Continue to monitor 3. Hypermetropia, bilateral 4. Presbyopia Finalized spec rx Recommended follow-up with Dr. Ray for contact lens evaluation (VSP provider) Follow-up yearly or sooner as needed Daya Valentine, OD November 05, 2021 2:01 [facility]07-14-2022 History of Present illness Narrative* Daya Valentine, OD - 11/05/2021 2:01 PM EDT 1. Nuclear sclerosis of both eyes 2. Cortical age-related cataract, bilateral Educated pt on condition and that smoking cessation will help slow the progression Continue to monitor 3. Hypermetropia, bilateral 4. Presbyopia Finalized spec rx Recommended follow-up with Dr. Ray for contact lens evaluation ([facility]SP provider) Follow-up yearly or sooner as needed Daya Valentine, OD November 05, 2021 2:01 PM [facility] NoteHNO ID: [id number] Author: Cora Castro [facility] Service: ? Author Type: ? Type: Progress Notes Filed: 12/02/2020 11:28 AM Note Text: Tried calling patient again and it says her phone is busy. Mailed letter Cora Castro [facility]08-05-2021 NoteHNO ID: [id number] Author: Cora Castro [facility] Service: ? Author Type: ? Type: Progress Notes Filed: 11/27/2020 3:20 PM Note Text: 1st failed attempt to contact patient, phone was busy, I will try again another day Cora Castro [facility]08-04-2021 NotePatient Outreach (INTMWS) RAAD PERRY ([id number]) 1970 F Date Time Provider Department 11/26/20 KAVIN FUNK INTMWS During your visit today, we recorded the following information about you: Yulissa Meyer RN 11/27/2020 3:20 PM Signed Pt due for screening colonoscopy. Please contact to schedule consult with Moni De Jesus or Jareth Barreto. ESTELA Christianson [facility] 11/27/2020 3:20 PM Signed 1st failed attempt to contact patient, phone was busy, I will try again another day Cora [facility] Cora [facility] 12/02/2020 11:28 AM Signed Tried calling patient again and it says her phone is busy. Mailed letter Cora Castro [facility] Allergies As of Date: 11/26/2020 (No Known Allergies) Date Reviewed: 11/30/2016 Reviewed by: Laura Garcia Field Inspector - Fully Assessed Reason for Visit: Outpatient Colonoscopy [482] Prescriptions as of 12/02/2020 - COMPOUNDED PRESCRIPTION KNEE HIGH COMPRESSION STOCKINGS 20-30 MM HG. DX: edema. Varicose vein with pain. I83.811. Problem List As Of Date 11/26/2020 Noted Resolved Depression [F32.9] 04/25/1995 Varicose veins of leg with pain [I83.819] 10/18/2016 Heart murmur [R01.1] 10/18/2016 Tobacco use disorder [F17.200] 10/18/2016 Hyperlipidemia [E78.5] 04/25/1999 Obesity, Class II, BMI 35-39.9 [E66.9] 03/23/2018 Encounter Status:Closed by PROTESTANT ELIZABETHCORA on 11/27/20[facility]08-04-2021 NoteHNO ID: [id number] Author: Yulissa Meyer RN Service: ? Author Type: Registered Nurse Type: Progress Notes Filed: 11/27/2020 3:20 PM Note Text: Pt due for screening colonoscopy. Please contact to schedule consult with Moni De Jesus or Jareth Barreto. [facility]issa Meyer [facility] Note Patient Outreach (INTMMN) RAAD PERRY ([id number]) 1970 F Date Time Provider Department 11/14/20 KAVIN FUNK During your visit today, we recorded the following information about you: Allergies As of Date: 11/14/2020 (No Known Allergies) Date Reviewed: 11/30/2016 Reviewed by: Laura Garcia [facility] - Fully Assessed Visit Diagnosis:Encounter for screening mammogram for breast cancer [Z12.31] Order(s):[facility] [[id number]] Order #: [id number] FUTURE Prescriptions as of 11/17/2020 - COMPOUNDED PRESCRIPTION KNEE HIGH COMPRESSION STOCKINGS 20-30 MM HG. DX: edema. Varicose vein with pain. I83.811. Problem List As Of Date 11/14/2020 Noted Resolved Depression [F32.9] 04/25/1995 Varicose veins of leg with pain [I83.819] 10/18/2016 Heart murmur [R01.1] 10/18/2016 Tobacco use disorder [F17.200] 10/18/2016 Hyperlipidemia [E78.5] 04/25/1999 Obesity, Class II, BMI 35-39.9 [E66.9] 03/23/2018 Encounter Status:Closed by CHARLIE KEMP on 11/17/20[facility] Evaluation + Plan note No data available for this section [facility] Evaluation + Plan note Future Appointments Appointment Date:07/01/2022 10:30:00 AM Scheduled Provider:ELOISE LANGFORD Location:[facility] Appointment Type:[facility] Post Op Follow Up Appointment Date:07/09/2022 04:15:00 PM Scheduled Provider: Location:[facility] Appointment Type:[facility] OV Hospital Follow Up Future Scheduled Tests Laboratory* Basic Metabolic Panel 06/30/22 Radiology* XR Chest 2 Views (PA & Lateral) 06/30/22 [facility] Evaluation + Plan note Future Appointments Appointment Date:07/09/2022 04:15:00 PM Scheduled Provider: Location:[facility] Appointment Type:CV OV Hospital Follow Up [facility] Evaluation + Plan note Future Appointments Appointment Date:09/22/2022 01:00:00 PM Scheduled Provider: Location:[facility] Appointment Type:CV OV Future Scheduled Tests Laboratory* Lipid Profile 10/09/[address] [facility] Evaluation note* Diagnosis Nuclear sclerosis of both eyes- Primary Cortical age-related cataract, bilateral Hypermetropia, bilateral Presbyopia documented in this encounter [facility] Discharge instructions No data available for this section [facility] Progress note No data available for this section [facility] Summary Purpose Family History No Family History Records FoundNo Family History Records Found Advance Directives No Advanced Directives Records FoundNo Advanced Directives Records Found Additional Source Comments Source Comments (unrecognize d section and content) In the event this informatio n is protected by the Federal Confidentiality of Alcohol and Drug Abuse Patient Records regulations: The Federal rules restrict any use of the information to criminally investigate or prosecute any alcohol or drug abuse patient.[facility] Reason for Visit (unrecogniz ed section and content) Care Teams (unrecognized sec tion and content) INFORMATION SOURCE (unrecogn ized section and content) DATE CREATED AUTHOR AUTHOR'S NEHA ATION 08/05/2022 [facility] [place] ([place]) Care Team (unrecognized sect ion and content) Care Team Personnel Name: IZZY SAMUEL Member Role: Primary Care Physician Address: Address: [address] [place] [address] Care Team Related Persons Name: TA ESCALERA FOR RECORDS PERTAINING TO PATIENTS WHO ARE OR HAVE BEEN ENROLLED IN A CHEMICAL DEPENDENCY/SUBSTANCEABUSE PROGRAM, SOME INFORMATION MAY BE OMITTED. This clinical summary was aggregated from multiple sources. Caution should be exercised in using it in the provision of clinical care. This summary normalizes information from multiple sources, and as a consequence, information in this document may materially change the coding, format and clinical context of patient data. In addition, data may be omitted in some cases. CLINICAL DECISIONS SHOULD BE BASED ON THE PRIMARY CLINICAL RECORDS. [facility] [employer] [facility]. provides no warranty or guarantee of the accuracy or completeness of information in this document.
== END | disposition home or self-care (01) ==
LOC: SL 08:29
PROVIDERS: PCP Internal Medicine; Visit Provider Internal Medicine
DX: G47.10 Hypersomnia, unspecified (principal)
CPT/HCPCS: 95806

== ENCOUNTER → 2024-03-08 | Outpatient (CLI) | payer OTHER, SELFPAY ==
[2024-03-08 12:21] LABS: Absolute Lymphocyte Count 2.12 X10^3/uL (0.83-4.51); Absolute Neutrophil Count 4.8 X10^3/uL (2.0-7.7); Basophil# 0.05 X10^3/uL; Basophil% 0.6 % (0-1); Eosinophil# 0.16 X10^3/uL; Eosinophils% 2.1 % (0-5); Hematocrit 42.8 % (37-47); Hemoglobin 14.2 g/dL (12.0-15.0); Lymphocyte # 2.12 X10^3/ul (0.83-4.51); Lymphocyte % 27.3 % (19-41); Mean Corp Hgb Conc 33.2 g/dL (32-36); Mean Corpuscular Hgb 30.5 pg (27.0-32.0); Mean Platelet Vol. 10.5 fl (6.2-12.0); Monocyte# 0.61 X10^3/uL; Monocyte% 7.9 % (0-10); NRBC Flagged by Analyzer 0 % (0-5); Neutrophil % 61.7 % (47-70); Platelet Count 228 K/mm3 (150-450); RBC Distribution Width CV 11.9 % (11.6-14.6); RBC Distribution Width SD 39.8 fl (35.1-43.9); Red Blood Count 4.65 M/mm3 (4.2-5.4); White Blood Count 7.8 K/mm3 (4.4-11.0)
[2024-03-08 13:29] LABS: AST(SGOT) 14 U/L (15-37); Alanine Aminotransfer ALT/SGPT 23 U/L (13-56); Albumin, Serum 3.7 g/dL (3.2-5.0); Alkaline Phosphatase 75 U/L (45-117); Anion Gap 6 (5-15); BUN 11 mg/dL (7-18); BUN/Creat Ratio 10.3 RATIO (10-20); Calcium,Total 9.1 mg/dL (8.5-10.1); Chloride 108 mmol/L (98-107); Cholesterol 151 mg/dL (200); Creatinine, Serum 1.07 mg/dL (0.55-1.02); EST Glomerular Filtration Rate 57 mL/min (>60); Est Glom Filt Rate - Afr Amer 69 mL/min (>60); Globulin 3.8 g/dL (2.2-4.2); Glucose 95 mg/dL (74-106); High Density Lipoprotein 31 mg/dL; Potassium 4.8 mmol/L (3.5-5.1); Protein, Total 7.5 g/dL (6.4-8.2); Sodium Level 139 mmol/L (136-145); Triglycerides 189 mg/dL; Very Low Density Lipoprotein 38 mg/dL (5-40)
[2024-03-08 13:47] LABS: Hemoglobin A1c 6.2 % (3.8-5.6)
[2024-03-09 13:49] LABS: T4 Free Direct 0.76 ng/dL (0.76-1.46)
== END | disposition home or self-care (01) ==
LOC: BIMLAB 08:01
PROVIDERS: PCP Internal Medicine; Referring Provider Physician Assistant; Visit Provider Physician Assistant
DX: I10 Essential (primary) hypertension (principal); E78.5 Hyperlipidemia, unspecified; R73.09 Other abnormal glucose; R79.89 Other specified abnormal findings of blood chemistry; Z95.1 Presence of aortocoronary bypass graft
CPT/HCPCS: 36415; 80053; 80061; 83036; 84439; 84443; 85025

== ENCOUNTER 2024-05-28 07:08 | Day surgery (SDC) | payer OTHER, SELFPAY ==
--- NOTE | 2024-05-24 23:05 | PAT.ANE_ITS ---
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 When Was Last Pacemaker Check QUESTION #4 FULL TEXT: You/Your Family Experience fever (hyperthermia) with Anesthesia Last Oral Intake Last Oral intake: Last Oral Intake NPO since Meds taken in AM with sips of water? Meds patient instructed to take am of surgery PONV PONV - teacher selection specialist: PONV - teacher selection specialist Female Yes 05/23/24 11:00 HX of Motion Sickness No 05/23/24 11:00 HX of N/V After Surgery No 05/23/24 11:00 Non-Smoker No 05/23/24 11:00 Duration of Surgery greater No 05/23/24 11:00 than 60 minutes Number of Risk Factors 1 05/23/24 11:00 PONV Score Low Risk 05/23/24 11:00 Height & Weight Height & Weight: Anesthesia: Height & Weight Height 5 ft 8 in 04/23/24 14:31 Respiratory Assessment Respiratory Assessment - teacher selection specialist: Respiratory Tract Infection Hx - teacher selection specialist Hx Respiratory Tract Infection No 05/23/24 11:00 STOP Sleep Apnea STOP Sleep Apnea - teacher selection specialist: STOP Sleep Apnea - teacher selection specialist Hx Hypertension No 05/23/24 11:00 Hx Sleep Apnea No 05/23/24 11:00 CPAP BIPAP Do you snore loudly (louder No 05/23/24 11:00 than talking or can be heard Do you often feel tired/ No 05/23/24 11:00 fatigued/ sleepy during daytime? Has anyone observed you stop No 05/23/24 11:00 breathing during sleep? STOP Results Negative 05/23/24 11:00 QUESTION #5 FULL TEXT : Do you snore loudly (louder than talking or can be heard through closed doors)? Tobacco Use History Tobacco Use History - teacher selection specialist: Tobacco Use History - teacher selection specialist Tobacco Use Smoking Status Current every day smoker 05/23/24 11:00 Hx Tobacco Use Yes 05/23/24 11:00 Years Smoking Packs Smoked per Day Smoking Cessation Date was within the last 15 years Hx Smoking Cessation Date Hx Smoking Cessation Counseling Hematologic Medial History Hematologic Hx - teacher selection specialist: Hematologic Medical Hx - software maintenance engineer Hx of Blood Transfusion Yes 05/23/24 11:00 Hx of Transfusion in last 3 No 05/23/24 11:00 Months Date of Last Transfusion (if within last 3 months) Ever experience any problems No 05/23/24 11:00 with transfusion(s)? Specify any problems Hx of Preganancy in last 3 No 05/23/24 11:00 Months Nurse Filling Out Transfusion VCHRISTIN 05/23/24 11:00 & Questions: Date: 05/23/24 05/23/24 11:00 Time: 11:05/23/24 11:00 Patient unable to answer at this time (ie. confused, unrespo /Reproduction History /Reproductive History - teacher selection specialist: /Reproductive Hx- teacher selection specialist Hx Now Gestational Age (in weeks): EDC: Hx Hx Para Hx Section SAB PFSH Medical History (Updated 05/23/24 @ 11:00 by Freida Kamara) Wears dentures Wears glasses Post-menopausal Arthritis Dietary restriction Smoker COPD (chronic obstructive pulmonary disease) Shortness of breath on exertion History of echocardiogram History of stress test Cardiology follow-up encounter Chest pain Breast cancer screening Obesity (BMI 30-39.9) Hypersomnolence Dermatitis Tobacco abuse Colon cancer screening Cough due to ELVIA inhibitor Shortness of breath Tobacco abuse counseling Varicose veins of both legs with edema Right knee pain Hyperlipidemia Hypertension Arthritis Home Medications ?Medication ?Instructions ?Recorded ?Last Taken ?Type aspirin 81 mg capsule 81 mg PO DAILY 09/10/22 Unkn own History rosuvastatin 20 mg tablet 20 mg PO DAILY 09/10/22 Unkn own History losartan 50 mg tablet 50 mg PO BID #60 tabs Unknown Rx biotin 5 mg capsule 5 mg PO DAILY 05/23/24 Unkno wn History metoprolol tartrate 25 mg tablet 25 mg PO BID 05/23/24 Unknown History Allergy/AdvReac Type Severity Reaction Status Date / Time No Known Allergies Allergy Verified 05/23/24 10:49 Family History Mother Alcoholism in family Bleeding disorder Diabetes Hypertension High cholesterol Thyroid disorder Grandfather Alcoholism in family Heart disease CVA (cerebral vascular accident) Brother Anxiety Heart disease Diabetes Hypertension High cholesterol Father Arthritis Heart disease Myocardial infarction, Onset Age: 46 Hypertension High cholesterol Skin cancer CVA (cerebral vascular accident) Sister Bleeding disorder H/O ulcer disease Grandmother Colon cancer Surgical History (Updated 05/23/24 @ 11:00 by Freida Kamara) History of cardiac catheterization Hx of dilation and curettage History of open heart surgery History of section Hx of cholecystectomy Social History Smoking Status: Current every day smoker alcohol intake: never substance use type: does not use what type of physical activity do you participate in: walking frequency: daily Audit: Pertinent Findings Pertinent Findings Echo (EF%) pertinent findings: July 27, 2022. Ejection fraction is 55 to 60%. Aortic valve is a bioprosthetic. Mean systolic gradient is 17. Peak gradient is 31. Heart catheterization pertinent findings: May 28, 2022. 1. LAD has 60% stenosis proximally. 90% stenosis noted mid vessel. 2. Left circumflex-50% stenosis in the mid vessel. 3. Right coronary artery-80% stenosis in the proximal vessel. 80% stenosis in the mid vessel. 4. Plan for CABG with AVR. Consult pertinent findings: May 11, 2024. Dr. Booker Vanessa. 1. Coronary artery disease-status post CABG x 2 with vein graft to the LAD and RPDA. Will reevaluate with exercise nuclear stress stress. 2. Status post aortic valve replacement. Valve functioning normally. 3. Hypertension-controlled in the office today. Recommendation Anesthesia Recommendation Anesthesia recommendation: OPTIMIZED for anesthesia
[2024-05-28] VITALS (7 sets, daily range): BP systolic 81–125; BP diastolic 42–66; PULSE 65–71; RESP 16–18; TEMP 36.6–37.2; O2SAT 95–99; BMI 39.2
--- NOTE | 2024-05-28 07:13 | H&P.OPEN ---
HPI - General General Date of Service: 05/28/24 HPI Narrative RAAD PERRY, is a 54 F who presents for screening colonoscopy. Patient denies any changes since office visit. Office visit 04/23/2024 HPI HPI: 54-year-old female presents for screening colonoscopy. Patient's never had previous colonoscopy. Patient did have a previous CABG double with aortic valve at [place]. Patient's maternal grandmother had colon cancer and recurrent at age 97 likely was over 60 before diagnosis. Has bowel movements daily denies any blood. Denies any abdominal pain/nausea/vomiting/reflux. Patient does have hemorrhoids that she is aware of and denies any pain with that. Patient is currently on 81 mg of aspirin due to her cardiac history. [facility] Medical History (Updated 05/23/24 @ 11:00 by Freida Kamara) Wears dentures Wears glasses Post-menopausal Arthritis Dietary restriction Smoker COPD (chronic obstructive pulmonary disease) Shortness of breath on exertion History of echocardiogram History of stress test Cardiology follow-up encounter Chest pain Breast cancer screening Obesity (BMI 30-39.9) Hypersomnolence Dermatitis Tobacco abuse Colon cancer screening Cough due to ELVIA inhibitor Shortness of breath Tobacco abuse counseling Varicose veins of both legs with edema Right knee pain Hyperlipidemia Hypertension Arthritis Home Medications ?Medication ?Instructions ?Recorded ?Last Taken ?Type aspirin 81 mg capsule 81 mg PO DAILY 09/10/22 Unknown History rosuvastatin 20 mg tablet 20 mg PO DAILY 09/10/22 Unknown History losartan 50 mg tablet 50 mg PO BID #60 tabs 05/03/24 Unknown Rx biotin 5 mg capsule 5 mg PO DAILY 05/23/24 Unknown History metoprolol tartrate 25 mg tablet 25 mg PO BID 05/23/24 Unknown History Allergy/AdvReac Type Severity Reaction Status Date / Time No Known Allergies Allergy Verified 05/23/24 10:49 Family History Mother Alcoholism in family Bleeding disorder Diabetes Hypertension High cholesterol Thyroid disorder Grandfather Alcoholism in family Heart disease CVA (cerebral vascular accident) Brother Anxiety Heart disease Diabetes Hypertension High cholesterol Father Arthritis Heart disease Myocardial infarction, Onset Age: 46 Hypertension High cholesterol Skin cancer CVA (cerebral vascular accident) Sister Bleeding disorder H/O ulcer disease Grandmother Colon cancer Surgical History (Updated 05/23/24 @ 11:00 by Freida Kamara) History of cardiac catheterization Hx of dilation and curettage History of open heart surgery History of section Hx of cholecystectomy Social History Smoking Status: Current every day smoker alcohol intake: never substance use type: does not use what type of physical activity do you participate in: walking frequency: daily Past Medical/Surgical History Planned Operation Planned Operative Procedure(s): COLONOSCOPY Cardiovascular Hx Heart Attack: No Hx Hypertension: Yes Respiratory Hx Chronic Obstructive Pulmonary Disease (COPD): No Hx Asthma: No Hx Emphysema: No Hx Sleep Apnea: No Do You Snore Loudly (louder than talking or can be heard): No Do You Often Feel Tired/ Fatigued/ Sleepy Dring Daytime?: No Has Anyone Observed You Stop Breathing During Sleep?: No Result (for STOP score): Negative Smoking Status: Current every day smoker Allergies No Known Allergies Allergy (Verified 05/23/24 10:49) Discharge Is Pt Admitted From a Retirement, or a Nursing Home: No After D/C, Where Do you Plan to Go: Return Home Physical Exam Const alert, oriented x3 and no apparent distress HEENT normocephalic and head/scalp atraumatic Resp normal respiratory effort Cardio regular rate GI soft to palpation and non-tender; Negative for non-distended Palpation: Negative for guarding Extremity no clubbing, cyanosis or edema Skin no rashes or lesions noted Neuro CN's II-XII intact bilaterally Psych mental status grossly normal Assessment & Plan Assessment/Plan (1) Colon cancer screening: (2) Aortic valve replaced: Surgery Risks - Colonoscopy I discussed with the patient the risks of the procedure: Yes Risks Include but are not Limited To: Risks include but are not limited to: Bleeding, perforation requiring further surgery, inability to complete colonoscopy requiring barium enema.
--- NOTE | 2024-05-28 07:43 | PCM.PRE.AN2 ---
ASA Classification* ASA Classification ASA Classification: 2 Assessment & Plan Anesthesia* Anesthesia Assessment Anesthesia Assessment: Discussed sedation and/or anesthesia options, risks, benefits, and alternatives with patient/parents/legal guardian/POA. Questions invited. The patient/parents/legal guardian/POA seems to understand and agrees to proceed with anesthesia plan. Reviewed the physical assessment, medical history, allergy history and patient home medications list prior to surgery/procedure/anesthetic and documented any changes. Performed airway and anesthesia risk assessments. Anesthesia Type Anesthesia Type: MAC Anesthesia Focused Assessment* Airway Assessment Mouth opens: >3 cm Mallampati Score: II Focused Labs Anesthesia Preop lab: CBC WBC 7.8 K/mm3 (4.4-11.0) 03/08/24 08:01 03/08/24 RBC 4.65 M/mm3 (4.2-5.4) 03/08/24 08:01 03/08/24 Hgb 14.2 g/dL (12.0-15.0) 03/08/24 08:01 03/08/24 Hct 42.8 % (37-47) 03/08/24 08:01 03/08/24 Plt Count 228 K/mm3 (150-450) 03/08/24 08:01 03/08/24 CHEMISTRY Potassium 4.8 mmol/L (3.5-5.1) 03/08/24 08:01 03/08/24 Sodium 139 mmol/L (136-145) 03/08/24 08:01 03/08/24 BUN 11 mg/dL (7-18) 03/08/24 08:01 03/08/24 Creatinine 1.07 mg/dL (0.55-1.02) H 03/08/24 08:01 03/08/24 Glucose 95 mg/dL (74-106) 03/08/24 08:01 03/08/24 TSH 5.820 uIU/mL (0.358-3.740) H 03/08/24 08:01 03/08/24 COAG PT 15.2 SECONDS (11.7-14.9) H 08/16/22 09:59 08/16/22 Pre-Assessment Diagnosis/Proposed Procedure Planned Operative Procedure(s): COLONOSCOPY Anesthesia History Anesthesia History - analyst sales: Anesthesia History - analyst sales Hx Hospitalization No 05/23/24 11:00 Any Problems With Anesthesia No 05/23/24 11:00 Cholinesterase deficiency No 05/23/24 11:00 You/Your Family Experience No 05/23/24 11:00 fever (hyperthermia) with Relationship Recent Exposure to Contagious Disease Does patient have nerve No 05/23/24 11:00 stimulator Patient instructed to have device shut off --Does patient have Pacemaker or ICD? When Was Last Pacemaker Check QUESTION #4 FULL TEXT: You/Your Family Experience fever (hyperthermia) with Anesthesia Last Oral Intake Last Oral intake: Last Oral Intake NPO since Meds taken in AM with sips of water? Meds patient instructed to take am of surgery PONV PONV - analyst sales: PONV - analyst sales Female Yes 05/23/24 11:00 HX of Motion Sickness No 05/23/24 11:00 HX of N/V After Surgery No 05/23/24 11:00 Non-Smoker No 05/23/24 11:00 Duration of Surgery greater No 05/23/24 11:00 than 60 minutes Number of Risk Factors 1 05/23/24 11:00 PONV Score Low Risk 05/23/24 11:00 Height & Weight Height & Weight: Anesthesia: Height & Weight Height 5 ft 8 in 04/23/24 14:31 Respiratory Assessment Respiratory Assessment - analyst sales: Respiratory Tract Infection Hx - analyst sales Hx Respiratory Tract Infection No 05/23/24 11:00 STOP Sleep Apnea STOP Sleep Apnea - analyst sales: STOP Sleep Apnea - analyst sales Hx Hypertension Yes 05/28/24 07:20 Hx Sleep Apnea No 05/28/24 07:20 CPAP BIPAP Do you snore loudly (louder No 05/28/24 07:14 than talking or can be heard Do you often feel tired/ No 05/28/24 07:14 fatigued/ sleepy during daytime? Has anyone observed you stop No 05/28/24 07:14 breathing during sleep? STOP Results Negative 05/28/24 07:20 QUESTION #5 FULL TEXT : Do you snore loudly (louder than talking or can be heard through closed doors)? 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 Specify any problems Hx of Preganancy in last 3 No 05/23/24 11:00 Months Nurse Filling Out Transfusion VCHRISTIN 05/23/24 11:00 & Questions: Date: 05/23/24 05/23/24 11:00 Time: 11:05/23/24 11:00 Patient unable to answer at this time (ie. confused, unrespo /Reproduction History /Reproductive History - analyst sales: /Reproductive Hx- analyst sales Hx Now Gestational Age (in weeks): EDC: Hx Hx Para Hx Section SAB PFSH Medical History Wears dentures Wears glasses Post-menopausal Arthritis Dietary restriction Smoker COPD (chronic obstructive pulmonary disease) Shortness of breath on exertion History of echocardiogram History of stress test Cardiology follow-up encounter Chest pain Breast cancer screening Obesity (BMI 30-39.9) Hypersomnolence Dermatitis Tobacco abuse Colon cancer screening Cough due to ELVIA inhibitor Shortness of breath Tobacco abuse counseling Varicose veins of both legs with edema Right knee pain Hyperlipidemia Hypertension Arthritis Home Medications ?Medication ?Instructions ?Recorded ?Last Taken ?Type aspirin 81 mg capsule 81 mg PO DAILY 09/10/22 Unknown History rosuvastatin 20 mg tablet 20 mg PO DAILY 09/10/22 Unknown History losartan 50 mg tablet 50 mg PO BID #60 tabs 05/03/24 05/28/24 05:45 Rx biotin 5 mg capsule 5 mg PO DAILY 05/23/24 Unknown History metoprolol tartrate 25 mg tablet 25 mg PO BID 05/23/24 05/28/24 05:45 History Allergy/AdvReac Type Severity Reaction Status Date / Time No Known Allergies Allergy Verified 05/28/24 07:31 Family History Mother Alcoholism in family Bleeding disorder Diabetes Hypertension High cholesterol Thyroid disorder Grandfather Alcoholism in family Heart disease CVA (cerebral vascular accident) Brother Anxiety Heart disease Diabetes Hypertension High cholesterol Father Arthritis Heart disease Myocardial infarction, Onset Age: 46 Hypertension High cholesterol Skin cancer CVA (cerebral vascular accident) Sister Bleeding disorder H/O ulcer disease Grandmother Colon cancer Surgical History History of cardiac catheterization Hx of dilation and curettage History of open heart surgery History of section Hx of cholecystectomy Social History Smoking Status: Current every day smoker tobacco type: cigarettes alcohol intake: never substance use type: does not use what type of physical activity do you participate in: walking frequency: daily Review of Systems (Anesthesia) ROS Narrative System reviewed and no additional complaints, except as documented.
--- NOTE | 2024-05-28 08:00 | COLBX_PTH ---
PATIENT: RAAD PERRY LOC: EN U#:[id number] AGE/SX: 54/F ROOM: RE05/28/[address]: Dr. Summer Dong MD : 1970 BED: DIS: 05/28/2024 SPEC #: [id number] RECD: 05/28/24 10:43 STATUS: LENNIE AMBER #: [id number] MINA: 05/28/24 08:[address]: Summer Dong DEPT: SURGICAL PATHOLOGY RECD BY: Anahy West ENTERED: 05/28/24 11:13 SP TYPE: COLON BX OTHR DR: Dr. Aleksandr Avila MD Tissues: A - Cecum, NOS B - Descending colon Procedures: Surgery Specimen Level IV HEADER OPERATION: Colonoscopy with biopsy PRE-OP DIAGNOSIS: Colon cancer screening TISSUE SUBMITTED: A- Cecum polyp biopsy, B- Descending polyp biopsy MICROSCOPIC DIAGNOSIS A. Cecum polyp, biopsy: Fragments of tubular adenoma. B. Descending colon polyp, biopsy: Fragments of tubular adenoma. SJ. 05/29/2024 MICROSCOPIC DESCRIPTION Slides are reviewed. GROSS DESCRIPTION A. Received in fixative is one container labeled with the patient's name and designated Cecum polyp biopsy. The specimen consists of multiple irregular fragments of light dao soft tissue that in aggregate measure 1.5 x 0.2 x 0.2 cm. The specimen is totally submitted in one cassette. B. Received in fixative is one container labeled with the patient's name and designated Descending polyp biopsy. The specimen consists of multiple irregular fragments of light dao soft tissue that in aggregate measure 1.4 x 0.3 x 0.2 cm. The specimen is totally submitted in one cassette. BW.mr 05/28/2024 TC:1 CPT:[id number]
--- NOTE | 2024-05-28 08:38 | PCM.POST.ANE ---
Anesthesia: Postop Eval I Current Vital Signs Temperature: 98 F Pulse Rate: 67 Blood Pressure: 125/60 Respiratory Rate: 16 Pulse Ox: 96 Oxygen Delivery Method: Room Air Assessment Airway patent: Yes Spontaneous unlabored respirations: Yes Mental status: Awake and Calm nausea: No Vomiting: No Anesthesia Complication: No Fluid Hydration Crystalloid volume administer (ml): 20 Total IV fluid infused: 20 Progress Note Anesthesia document: Postop Eval 1 completed: Yes
--- NOTE | 2024-05-28 08:39 | POSTOPAN2_ITS ---
Anesthesia Postop Eval I Sum Postop Eval Completion status Anesthesia document: Postop Eval 1 completed: Yes Anesthesia Postop Eval I Summary Anesthesia Postop Eval I Summary: Anesthesia Postop Eval I: Assessment Summary Airway patent Yes 05/28/24 08:39 [email or web address] Spontaneous unlabored Yes 05/28/24 08:39 [email or web address] respirations Mental status Awake,Calm 05/28/24 08:39 [email or web address] nausea No 05/28/24 08:39 HOSE [email or web address].[email or web address] Vomiting No 05/28/24 08:39 HOSE [email or web address].[email or web address] Anesthesia Postop Eval I: Fluid Summary Crystalloid volume administer 20 05/28/24 08:39 [email or web address] [email or web address] (ml) Colloids volume administered ( ml) Blood Product volume administered (ml) Total IV fluid infused 20 05/28/24 08:39 HOSE [email or web address].CHANTALE Anesthesia Postop Eval I: Summary Notes Anesthesia Complication No 05/28/24 08:39 HOSE [email or web address].ROSIE Anesthesia Complication Comment: Post-operative progress note Anesthesia: Postop Eval II Evaluation Mental status: Awake and Calm Pain Level: 0 nausea: No Vomiting: No Complications Anesthesia Complication: No
--- NOTE | 2024-05-28 08:39 | PCM.POSTANE2 ---
Anesthesia Postop Eval I Sum Postop Eval Completion status Anesthesia document: Postop Eval 1 completed: Yes Anesthesia Postop Eval I Summary Anesthesia Postop Eval I Summary: Anesthesia Postop Eval I: Assessment Summary Airway patent Yes 05/28/24 08:39 [email or web address] Spontaneous unlabored Yes 05/28/24 08:39 [email or web address] respirations Mental status Awake,Calm 05/28/24 08:39 [email or web address] nausea No 05/28/24 08:39 KENO [email or web address].[email or web address] Vomiting No 05/28/24 08:39 [email or web address].[email or web address] Anesthesia Postop Eval I: Fluid Summary Crystalloid volume administer 20 05/28/24 08:39 [email or web address] (ml) Colloids volume administered ( ml) Blood Product volume administered (ml) Total IV fluid infused 20 05/28/24 08:39 [email or web address].CHANTALE Anesthesia Postop Eval I: Summary Notes Anesthesia Complication No 05/28/24 08:39 KENO [email or web address].ROSIE Anesthesia Complication Comment: Post-operative progress note Anesthesia: Postop Eval II Evaluation Mental status: Awake and Calm Pain Level: 0 nausea: No Vomiting: No Complications Anesthesia Complication: No
--- NOTE | 2024-05-28 08:45 | OP.CCLET_ITS ---
05/28/2024 Aleksandr Avila MD [address] [place] [address] Re : Colonoscopy procedure for Leonel Jose Dear Dr. Avila This procedure was performed on Tuesday, May 28, 2024. My impressions and recommendations are as follows: Impressions : - Two less than 5 mm polyps in the descending colon and in the cecum, removed with a cold biopsy forceps. Resected and retrieved. - The examination was otherwise normal on direct and retroflexion views. Recommendations : - Discharge patient to home. - Resume previous diet. - Continue present medications. - Await pathology results. - Repeat colonoscopy in 5 years for surveillance based on pathology results. My findings are described in the full procedure note, which is enclosed. If I can be of further assistance, please feel free to contact me at Doctor phone number(s): , Work: . Sincerely, MD Summer Pabon MD 05/28/2024 8:44:30 AM This report has been signed electronically.
--- NOTE | 2024-05-28 08:45 | OP.COLON_ITS ---
Patient Name: Leonel Jose Procedure Date: 05/28/2024 8:10 AM Date of : 1970 Age: 54 Procedure: Colonoscopy Indications: Screening for colorectal malignant neoplasm Providers: Summer Dong MD Medicines: Monitored Anesthesia Care Patient Profile: Last Colonoscopy: none. The patient's first colonoscopy is today. Complications: No immediate complications. Procedure: Pre-Anesthesia Assessment: - Prior to the procedure, a History and Physical was performed, and patient medications and allergies were reviewed. The patient's tolerance of previous anesthesia was also reviewed. The risks and benefits of the procedure and the sedation options and risks were discussed with the patient. All questions were answered, and informed consent was obtained. Prior Anticoagulants: The patient has taken no anticoagulant or antiplatelet agents except for aspirin. ASA Grade Assessment: Per anesthesia. After reviewing the risks and benefits, the patient was deemed in satisfactory condition to undergo the procedure. After I obtained informed consent, the scope was passed under direct vision. Throughout the procedure, the patient's blood pressure, pulse, and oxygen saturations were monitored continuously. The colonoscope was introduced through the anus and advanced to the cecum, identified by the appendiceal orifice, ileocecal valve and palpation. The colonoscopy was performed without difficulty. The patient tolerated the procedure well. The quality of the bowel preparation was good. Scope In: 8:17:35 AM Scope Withdrawal Time 0 hours 11 minutes 55 seconds Scope Out: 8:37:07 AM Total Procedure Duration Time 0 hours 19 minutes 32 seconds Findings: The perianal and digital rectal examinations were normal. Two sessile polyps were found in the descending colon and cecum. The polyps were less than 5 mm in size. These polyps were removed with a cold biopsy forceps. Resection and retrieval were complete. The exam was otherwise without abnormality on direct and retroflexion views. Impression: - Two less than 5 mm polyps in the descending colon and in the cecum, removed with a cold biopsy forceps. Resected and retrieved. - The examination was otherwise normal on direct and retroflexion views. Recommendation: - Discharge patient to home. - Resume previous diet. - Continue present medications. - Await pathology results. - Repeat colonoscopy in 5 years for surveillance based on pathology results. Procedure Code(s): --- Professional --- 35502, PT, Colonoscopy, flexible; with biopsy, single or multiple Diagnosis Code(s): --- Professional --- D12.0, Benign neoplasm of cecum D12.4, Benign neoplasm of descending colon Z12.11, Encounter for screening for malignant neoplasm of colon CPT copyright 2021 [employer]. All rights reserved. The codes documented in this report are preliminary and upon soils engineer review may be revised to meet current compliance requirements. MD Summer Pabon MD 05/28/2024 8:44:30 AM This report has been signed electronically. Number of Addenda: 0 Note Initiated On: 05/28/2024 8:10 AM
== END 2024-05-28 09:24 | disposition home or self-care (01) ==
LOC: EN 07:09 → AC 07:10
PROVIDERS: PCP Internal Medicine; Referring Provider Internal Medicine; Visit Provider Surgery
PROC: 0DJD8ZZ Inspection of Lower Intestinal Tract, Via Natural or Artificial Opening Endoscopic (ICD-10-PCS; CPT 45378; principal; 2024-05-28 07:55)
DX: Z12.11 Encounter for screening for malignant neoplasm of colon (principal); J44.9 Chronic obstructive pulmonary disease, unspecified; D12.0 Benign neoplasm of cecum; I10 Essential (primary) hypertension; E78.5 Hyperlipidemia, unspecified; D12.4 Benign neoplasm of descending colon; F17.200 Nicotine dependence, unspecified, uncomplicated; Z79.82 Long term (current) use of aspirin; Z79.899 Other long term (current) drug therapy; Z80.0 Family history of malignant neoplasm of digestive organs; Z95.1 Presence of aortocoronary bypass graft
CPT/HCPCS: 45380; 88305; A4216

== ENCOUNTER → 2024-07-02 | Outpatient (CLI) | payer OTHER, SELFPAY ==
[2024-07-02 17:03] LABS: Anion Gap 12 (5-15); BUN 9 mg/dL (4-19); BUN/Creat Ratio 9.1 RATIO (10-20); Calcium,Total 9.5 mg/dL (7.6-11.0); Carbon Dioxide 21.5 mmol/L (21.0-32.0); Chloride 103 mmol/L (98-108); Creatinine, Serum 0.99 mg/dL (0.70-1.20); EST Glomerular Filtration Rate 68 (>60); Glucose 98 mg/dL (70-99); Potassium 4.4 mmol/L (3.3-5.1); Sodium Level 136 mmol/L (133-145)
[2024-07-02 20:24] LABS: Hemoglobin A1c 6.5 % (<=5.6)
[2024-07-04 15:08] LABS: Thyroid Peroxidase AB > 600 IU/mL (0-34)
== END | disposition home or self-care (01) ==
LOC: BIMLAB 11:40
PROVIDERS: PCP Internal Medicine; Referring Provider Internal Medicine; Visit Provider Internal Medicine
DX: I10 Essential (primary) hypertension (principal); E11.9 Type 2 diabetes mellitus without complications; R79.89 Other specified abnormal findings of blood chemistry
CPT/HCPCS: 36415; 80048; 83036; 84439; 84443; 86376

== ENCOUNTER → 2024-08-16 | Outpatient (CLI) | payer OTHER, SELFPAY ==
[2024-08-16 19:02] LABS: Hemoglobin A1c 6.2 % (<=5.6)
[2024-08-18 04:07] LABS: Thyroid Peroxidase AB > 600 IU/mL (0-34)
== END | disposition home or self-care (01) ==
LOC: BIMLAB 11:45
PROVIDERS: PCP Internal Medicine; Referring Provider Internal Medicine; Visit Provider Internal Medicine
DX: R73.03 Prediabetes (principal); E06.3 Autoimmune thyroiditis; R79.89 Other specified abnormal findings of blood chemistry
CPT/HCPCS: 36415; 83036; 84439; 84443; 86376

== ENCOUNTER → 2024-10-05 | Outpatient (CLI) | payer OTHER, SELFPAY ==
[2024-10-05 16:46] LABS: Absolute Lymphocyte Count 2.51 X10^3/uL (0.83-4.51); Absolute Neutrophil Count 5.6 X10^3/uL (2.0-7.7); Basophil# 0.03 X10^3/uL; Basophil% 0.3 % (0-1); Eosinophil# 0.13 X10^3/uL; Eosinophils% 1.5 % (0-5); Hematocrit 37.2 % (37-47); Hemoglobin 12.6 g/dL (12.0-15.0); Lymphocyte # 2.51 X10^3/ul (0.83-4.51); Lymphocyte % 28.6 % (19-41); Mean Corp Hgb Conc 33.9 g/dL (32-36); Mean Corpuscular Hgb 30.1 pg (27.0-32.0); Mean Platelet Vol. 9.8 fl (6.2-12.0); Monocyte# 0.48 X10^3/uL; Monocyte% 5.5 % (0-10); NRBC Flagged by Analyzer 0 % (0-5); Neutrophil # 5.61 X10^3/uL (2.7-7.7); Neutrophil % 63.9 % (47-70); Platelet Count 242 K/mm3 (150-450); RBC Distribution Width SD 39.4 fl (35.1-43.9); Red Blood Count 4.18 M/mm3 (4.2-5.4); White Blood Count 8.8 K/mm3 (4.4-11.0)
[2024-10-05 17:07] LABS: Hemoglobin A1c 6.4 % (<=5.6)
[2024-10-05 17:18] LABS: Anion Gap 12 (5-15); BUN 13 mg/dL (4-19); BUN/Creat Ratio 13.2 RATIO (10-20); Calcium,Total 9.6 mg/dL (7.6-11.0); Carbon Dioxide 23.1 mmol/L (21.0-32.0); Chloride 106 mmol/L (98-108); Creatinine, Serum 0.95 mg/dL (0.70-1.20); EST Glomerular Filtration Rate 71 (>60); Glucose 116 mg/dL (70-99); Potassium 4.2 mmol/L (3.3-5.1); Sodium Level 141 mmol/L (133-145)
[2024-10-07 09:08] LABS: Thyroid Peroxidase AB 391 IU/mL (0-34)
== END | disposition home or self-care (01) ==
LOC: BIMLAB 15:14
PROVIDERS: PCP Internal Medicine; Referring Provider Internal Medicine; Visit Provider Internal Medicine
DX: R73.03 Prediabetes (principal); E06.3 Autoimmune thyroiditis; I10 Essential (primary) hypertension
CPT/HCPCS: 36415; 80048; 83036; 84439; 84443; 85025; 86376